=== PATIENT | female | born 1940 | race Caucasian/White ===

== ENCOUNTER → 2020-01-06 10:09 | Outpatient (BNVA) | payer MEDICARE, SELFPAY | PROVIDERS: Family Provider Family Medicine; PCP Physician Assistant; Referring Provider Physician Assistant; Visit Provider Podiatrist Foot & Ankle Surgery | DX: M79.672 Pain in left foot (principal); M21.272 Flexion deformity, left ankle and toes; M21.612 Bunion of left foot; Z46.89 Encounter for fitting and adjustment of other specified devices | CPT/HCPCS: 73620; 73630; L3100 ==

== ENCOUNTER 2020-01-06 13:36 | Outpatient (CLI) | payer MEDICARE, SELFPAY | END 2020-01-06 13:37 | disposition home or self-care (01) | LOC: SPT 13:39 | PROVIDERS: Family Provider Family Medicine; PCP Physician Assistant; Visit Provider Podiatrist Foot & Ankle Surgery | DX: Z46.89 Encounter for fitting and adjustment of other specified devices (principal); M79.672 Pain in left foot | CPT/HCPCS: L3100 ==

== ENCOUNTER 2020-03-06 01:22 | Emergency (ER) | payer MEDICARE, SELFPAY ==
[2020-03-06 01:27] VITALS: BP 130/64; RESP 20; TEMP 36.8; O2SAT 95; BMI 18.9
--- NOTE | 2020-03-06 01:42 | ED_ITS ---
HPI - SOB/Dyspnea General: Chief Complaint: Shortness of Breath/Dyspnea Stated Complaint: resp distress Time Seen by Provider: 03/06/20 01:37 History of Present Illness: HPI Narrative: Patient arrived via ambulance with a complaint of shortness of breath that was relieved with application of oxygen at 3 L at home via the ambulance. Patient had last couple 3 days she has been more short of breath been intermittent been using her inhaler. She ran out of her Spiriva did not have that today. And her shortness of breath has been worse today. She denies any chest pain fever chills or productive cough she feels fine presently on oxygen her sats at home when ambulance arrived was 88% on room air patient is a smoker and continues to smoke MD elicited complaint: shortness of breath and cough Pertinent past history: COPD Timing: improved Severity: mild Exacerbating factors: exertion Relieving factors: oxygen Known history of: COPD Associated symptoms: Reports cough; Deny abdominal pain, chest pain, extremity pain, fever(s), nausea or vomiting Treatment prior to arrival: oxygen (Via the ambulance) Review of Systems Const: Denies: fever, chills or body aches Eyes: Denies: change in vision or blurry vision ENMT: Denies: throat pain or nasal congestion Card: Denies: chest pain or shortness of breath on exertion Resp: Reports: shortness of breath and non-productive cough; Denies: productive cough GI: Denies: abdominal pain, nausea or vomiting Musc: Denies: extremity pain Skin/Breast: Denies: rash Neuro: Denies: headache Psych: Denies: anxiety or depression Papi/Lymph: Denies: easy bruising [facility] ED PFSH: Medical History (Updated 03/06/20 @ 02:49 by RAINE Terrell) CAD (coronary artery disease) History of heart attack PVD (peripheral vascular disease) Surgical History (Updated 02/20/20 @ 18:05 by Mateo Montes MD) Hx of heart artery stent Social History Smoking and tobacco status: current every day smoker cigarettes Packs smoked per day: 1 Alcohol intake: never Current occupational status: retired Physical Exam Const: COMMON NORMALS: no apparent distress, average body habitus and oriented x3 HENMT: COMMON NORMALS: normocephalic HEAD & SCALP: normal to inspection and normocephalic FACE & SINUS: normal facial exam Eye: COMMON NORMALS: conjunctivae normal GENERAL EYE: normal appearance of both eyes CONJUNCTIVA: Yes conjunctivae normal Neck/C-Spine: COMMON NORMALS: no JVD Chest: COMMONS NORMALS: inspection of chest normal Resp: COMMON NORMALS: normal respiratory effort and clear to auscultation bilaterally AUSCULTATION: clear to auscultation bilaterally and diminished lung sounds (Throughout) Cardio: COMMON NORMALS: no JVD, regular rate and regular rhythm RATE: reg ular rate RHYTHM: regular rhythm GI: COMMON NORMALS: normal to inspection, nondistended, normoactive bowel sounds Extremity: COMMON NORMALS: normal to inspection and full ROM Neuro: COMMON NORMALS: oriented x3 Course Vital Signs: Vital signs: Vital Signs Temperature 98.3 F 03/06/20 01:27 Respiratory Rate 20 H 03/06/20 01:27 Blood Pressure 130/64 03/06/20 01:27 Pulse Oximetry 95 03/06/20 01:27 MDM - SOB/Dyspnea MDM Narrative: Medical decision making narrative: EKG reviewed with Dr. Agusto Huff Discussed x-ray appearance with Dr. Huff also and plan of care. Lab Data: Labs: Lab Results 03/06/20 03/06/20 Range/Units 01:39 01:39 WBC 9.9 (4.0-10.0) 10^3/ uL RBC 5.05 (4.1-5.3) 10^6/u L Hgb 15.2 (11.5-15.3) g/dL Hct 47.7 H (37.0-47.0) % MCV 94.5 (81-99) fL MCH 30.1 (28.0-34.0) pg MCHC 31.9 (30.0-36.0) g/dL RDW 13.7 (12.1-15.1) % Plt Count 202 (130-400) 10^3/c mm MPV 11.4 H (7.4-10.4) fL Neut % (Auto) 63.7 % Lymph % (Auto) 28.9 % [place] % (Auto) 6.8 % Eos % (Auto) 0.0 % Baso % (Auto) 0.4 % Neut # (Auto) 6.3 (1.8-7.7) 10^3/u L Lymph # (Auto) 2.9 (0.8-4.8) 10^3/u L [place] # (Auto) 0.7 (0.2-0.9) 10^3/u L Eos # (Auto) 0.0 (0.0-0.8) 10^3/u L Baso # (Auto) 0.0 (0.0-0.1) 10^3/u L Nucleated RBC % (a uto) 0 % Nucleated RBCs # 0.0 /100WBC Sodium 141 (136-145) mmol/L Potassium 3.8 (3.5-5.1) mmol/L Chloride 101 (98-107) mmol/L Carbon Dioxide 28 (22-29) mmol/L Anion Gap 15.8 (5-19) BUN 15 (8-23) mg/dL Creatinine 0.7 (0.5-0.9) mg/dL Glucose 165 H (65-115) mg/dL Calculated Osmolal ity 292 (285-295) mOsm/k g Calcium 10.3 (8.5-10.5) mg/dL Total Bilirubin 0.5 (0.15-1.2) mg/dL AST 21 (0-32) U/L ALT 14 (0-33) U/L Alkaline Phosphata se 135 H (35-105) IU/L Total Protein 7.4 (6.6-8.7) g/dL Albumin 4.6 (3.5-5.2) g/dL Globulin 2.8 (1.3-4.6) g/dL Discharge Plan Discharge Patient Disposition: Home, Self-Care Clinical Impression: Acute exacerbation of chronic obstructive airways disease Condition: Stable Prescriptions: New Medrol (Don) 4 mg tablets,dose pack See Rx Instructions .ROUTE .COMPLEX Qty: 21 RF: 0 No Action meclizine 25 mg tablet 25 mg PO DAILY RF: 0 venlafaxine 150 mg capsule,extended release 24hr 150 mg PO DAILY RF: 0 cilostazol 100 mg tablet 50 mg PO BID 90 Days Qty: 90 RF: 3 lisinopril 10 mg tablet 10 mg PO DAILY 90 Days Qty: 90 RF: 3 nitroglycerin [Nitrostat] 0.4 mg tablet, sublingual 0.4 mg SUBLINGUAL Q5M PRN (Reason: chest pain) 30 Days Qty: 25 RF: 6 simvastatin 20 mg tablet 20 mg PO DAILY 90 Days Qty: 90 RF: 3 aspirin [Adult Low Dose Aspirin] 81 mg tablet,delayed release (DR/EC) 81 mg PO DAILY 90 Days Qty: 90 RF: 3 Discharge Orders: Discharge Order (Routine); Ordered 03/06/20 Ordered By: Wicho Hauser Referrals: Karen Meza PA [Primary Care Provider] - Discharge Diet: Usual diet Discharge Activity: Resume usual activity Patient Instructions: Chronic Obstructive Pulmonary Disease (ED) Activity Restrictions/Additional Instructions: Follow-up with medical provider as directed. Take medications as prescribed. Return to the ER or your medical provider if condition worsens. Please read and understand discharge instructions. If any questions ask please. Coding Level of Care Code ED [employer] Fwd Exam Comprehensive
--- NOTE | 2020-03-06 01:42 | XR_ITS ---
WS: [id number] XR chest 1V portable [id number] REASON FOR EXAM: sob FINDINGS: Reticular pattern throughout both lung roberts is noted. The heart is borderline enlarged with arteriosclerotic changes. Lung roberts are mildly hyper aerated with associated emphysema. Arteriosclerotic changes are again seen in the arch of the aorta. The hilum and apices are normal. XR/XR chest 1V portable [id number] IMPRESSION: Chronic interstitial disease bilaterally with some degree of chronic obstructiv e pulmonary disease. Arteriosclerotic changes of the arch of the aorta.
--- NOTE | 2020-03-06 01:53 | ECG_ITS ---
Measurements Intervals [place] Rate: 83 P: 69 ID: [id number] QRS: -17 QRSD: 158 T: 162 QT: 437 QTc: 516 SINUS RHYTHM POSSIBLE LEFT ATRIAL ENLARGEMENT [-0.1mV P WAVE IN V1/V2] LEFT BUNDLE BRANCH BLOCK [120+ ms QRS DURATION, 80+ ms Q/S IN V1/V2, 85+ ms R IN I/aVL/V5/V6] Compared to ECG 09/02/2018 12:45:11 No significant changes Electronically Signed On 03-06-2020 20:04:23 CDT by Sanjeev White M.D. [email or web address]
[2020-03-06 03:31] VITALS: BP 129/53; PULSE 85; RESP 18; O2SAT 95
== END 2020-03-06 03:37 | disposition home or self-care (01) ==
PROVIDERS: Emergency Provider Nurse Practitioner Family; PCP Physician Assistant
DX: J44.1 Chronic obstructive pulmonary disease with (acute) exacerbation (principal); Z79.82 Long term (current) use of aspirin; I25.10 Atherosclerotic heart disease of native coronary artery without angina pectoris; I73.9 Peripheral vascular disease, unspecified; F17.210 Nicotine dependence, cigarettes, uncomplicated
CPT/HCPCS: 12345; 71045; 85025; 93005; 96374; 96375; 99282; 99283; J2930

== ENCOUNTER 2020-03-29 13:01 | Outpatient (CLI) | payer MEDICARE, SELFPAY ==
--- NOTE | 2020-03-29 13:09 | CT_ITS ---
WS: [id number] CT LUNG CANCER SCREENING DLP: 78.13 mGy.cm DIvol: 2.27 mGy CLINICAL INFORMATION SCREENING VISIT: Baseline COMPARISON: None available. FINDINGS Diagnostic quality: Satisfactory Comments: None. Lung Nodules: 4 mm irregular nodule periphery RIGHT middle lobe, image 242 of series 3. Lungs: Severe hyperexpansion and emphysema. Centrilobular emphysema with numerous cystic areas, great est in the upper lung roberts. Heart: Moderately enlarged heart chambers. No pericardial effusion. There is heavy calcification thro ughout the pala coronary arteries. Other findings: Extensive atherosclerosis aorta. Pulmonary artery size is equal to the aorta. No defi nite adenopathy is identified. There are small mediastinal and hilar lymph nodes. Enlarged lymph node s cannot be detected without IV contrast. No adrenal mass. Splenic granulomata. Increase in thoracic kyphosis. CT/CT lung screening [id number] IMPRESSION: LUNG-RADS: 2S-Benign Appearance or Behavior with Significant Findings FOLLOW UP: 12 Month: Continue annual screening with LDCT 1. Severe centrilobular emphysema. 2. Severe atherosclerosis pala coronary arteries. Follow-up with cardiology should be considered.
== END 2020-03-29 13:02 | disposition home or self-care (01) ==
LOC: RAD 13:06
PROVIDERS: PCP Physician Assistant; Visit Provider Physician Assistant
DX: Z12.2 Encounter for screening for malignant neoplasm of respiratory organs (principal); F17.210 Nicotine dependence, cigarettes, uncomplicated; J43.9 Emphysema, unspecified; I25.10 Atherosclerotic heart disease of native coronary artery without angina pectoris
CPT/HCPCS: G0297

== ENCOUNTER 2020-03-30 05:28 | Inpatient (IN) | payer MEDICARE, SELFPAY ==
[2020-03-30] VITALS (14 sets, daily range): BP systolic 103–118; BP diastolic 8–77; PULSE 72–86; RESP 15–22; TEMP 36.6–37.1; O2SAT 92–98; BMI 18.9
--- NOTE | 2020-03-30 05:31 | XR_ITS ---
WS: [id number] XR chest 1V portable [id number] REASON FOR EXAM: Dyspnea FINDINGS: Severe reticular pattern throughout both lung roberts are noted. The lung roberts are adequat patria aerated. In the right lower lung there is evidence of interstitial infiltrate with air bronchograms this this is occurred since previous exam. There is arteriosclerotic changes in the arch of the aorta. The hilum and apices are normal. XR/XR chest 1V portable [id number] IMPRESSION: Diffuse interstitial disease throughout both lung roberts A interstitial pneumonia in the right lung base.
--- NOTE | 2020-03-30 05:33 | W.ED.SOB ---
Documented by User: Edilma Junior 03/30/20 05:40 HPI - SOB/Dyspnea General: Chief Complaint: Shortness of Breath/Dyspnea Stated Complaint: SOB Time Seen by Provider: 03/30/20 05:31 History of Present Illness: HPI Narrative: Germaine is a 79-year-old female who comes in by EMS with respiratory distress. EMS reports the patient picked up was hypoxic and had a heart rate in the 180s. She was given Cardizem 20 mg IV and a DuoNeb. Respiratory distress improved and her heart rate came down to the 120s to 130s. Patient is denying any chest pain but still feels short of breath. Patient states she is had similar symptoms in the past. Review of Systems General: Reports: ROS unobtainable due to medical condition (Respiratory Distress) [facility] PFSH: Medical History CAD (coronary artery disease) COPD (chronic obstructive pulmonary disease) History of heart attack Hyperlipemia Left bundle branch block PVD (peripheral vascular disease) Type 2 diabetes mellitus Surgical History Hx of cardiac cath 2001: Stent placement to RCA July 2012: Stent placement to LAD with noted 60% proximal LCx lesion Hx of heart artery stent Hx of hysterectomy S/P cataract surgery S/P knee surgery S/P trigger finger release Family History Denies family history of Diabetes CAD (coronary artery disease) Clotting disorder Dementia Hyperlipidemia Psychiatric illness Chronic kidney disease (CKD) Suicide Anesthesia complication Bleeding disorder Family history of premature coronary artery disease Lung disease Cancer Hypertension Stroke Social History Smoking and tobacco status: current every day smoker cigarettes Packs smoked per day: 1 Alcohol intake: never Substance/Drug Use: never Current occupational status: retired Physical Exam Const: COMMON NORMALS: patient oriented x3 GENERAL APPEARANCE: cooperative, well kempt, well developed, in distress and frail appearing NUTRITIONAL APPEARANCE: cachectic HENMT: COMMON NORMALS: normocephalic, atraumatic, hearing grossly normal bilaterally, external ears normal, EAC's normal, Normal external nose present and moist oral mucous membranes HEAD & SCALP: normocephalic and atraumatic NOSE: Normal external nose present and Normal nares present EXTERNAL EAR: Yes external ears normal EXTERNAL AUDITORY CANAL: EAC's normal MOUTH: Normal oral and palatal mucosa present, lip normal and tongue normal Eye: COMMON NORMALS: Equal, round and reactive pupils present, EOMs intact bilaterally, conjunctivae normal and no scleral icterus GENERAL EYE: appearance normal, both eyes and all related structures ALIGNMENT: Yes alignment normal PERIORBITAL: periorbital findings normal EYELID: eyelids normal CONJUNCTIVA: Yes conjunctivae normal SCLERA: sclerae normal PUPIL: Yes Equal, round and reactive pupils present Neck/C-Spine: COMMON NORMALS: full ROM, no lymphadenopathy, supple, no meningeal signs and no JVD GENERAL: Yes normal visual inspection and Yes trachea midline Chest: COMMONS NORMALS: normal inspection of the chest and normal palpation of entire chest wall Resp: COMMON NORMALS: No retractions EFFORT & INSPECTION: Yes able to speak in complete sentences, Yes symmetric chest movement, Yes respiratory distress and Yes uses accessory muscles AUSCULTATION: no crackles, rales, rhonchi and wheezes Cardio: COMMON NORMALS: no JVD, S1 normal heart sound present, S2 normal heart sound present, No gallops present (Cardio), No clicks present (Cardio), No murmurs present (Cardio) and No rub (Cardio) RATE: tachycardic RHYTHM: abnormal rhythm irregularly irregular HEART SOUNDS: S1 normal heart sound present and S2 normal heart sound present GI: COMMON NORMALS: Soft to palpation and No hepatosplenomegaly present PALPATION: Yes Soft to palpation, No Tenderness to palpation present (GI), No Guarding due to palpation present (GI), No Rigid due to palpation, Yes No hepatosplenomegaly present, No Hernia present, No Palpable mass present and No Pulsatile mass present : COMMON NORMALS: Yes no CVA tenderness BLADDER/KIDNEY EXAM: Yes no CVA tenderness EXTERNAL FEMALE EXAM: No Hernia present Back/Pelvis: COMMON NORMALS: no CVA tenderness, thoracic and lumbar spine normal to inspection, no thoracic nor lumbar tenderness and thoraco-lumbar ROM normal Extremity: COMMON NORMALS: normal to inspection, full ROM, capillary refill normal, no joint enlargement, no clubbing, cyanosis or edema and no calf tenderness Neuro: COMMON NORMALS: patient oriented x3, CN's II-XII intact bilaterally, moves all extremities, no focal motor deficits and no sensory deficits noted MENINGEAL SIGNS: Yes no meningeal signs SPEECH: speech normal Psych: APPEARANCE: Yes well kempt Skin: COMMON NORMALS: no rashes or lesions noted, turgor normal, no jaundice, no petechiae and no mottling GENERAL SKIN EXAM: no rashes or lesions noted and turgor normal Course Vital Signs: Vital signs: Vital Signs Temperature 97.8 F 03/30/20 05:29 Pulse Rate 83 03/30/20 10:36 Respiratory Rate 18 03/30/20 10:36 Blood Pressure 114/56 03/30/20 10:36 Pulse Oximetry 97 03/30/20 10:36 MDM - SOB/Dyspnea Lab Data: Labs: Lab Results 03/30/20 03/30/20 03/30/20 Range/Units 05:40 05:40 05:40 WBC 8.4 (4.0-10.0) 10^3/ uL RBC 4.44 (4.1-5.3) 10^6/u L Hgb 13.6 (11.5-15.3) g/dL Hct 42.9 (37.0-47.0) % MCV 96.6 (81-99) fL MCH 30.6 (28.0-34.0) pg MCHC 31.7 (30.0-36.0) g/dL RDW 13.5 (12.1-15.1) % Plt Count 171 (130-400) 10^3/c mm MPV 11.4 H (7.4-10.4) fL Neut % (Auto) 44.1 % Lymph % (Auto) 48.7 % [place] % (Auto) 6.6 % Eos % (Auto) 0.0 % Baso % (Auto) 0.5 % Neut # (Auto) 3.7 (1.8-7.7) 10^3/u L Lymph # (Auto) 4.1 (0.8-4.8) 10^3/u L [place] # (Auto) 0.6 (0.2-0.9) 10^3/u L Eos # (Auto) 0.0 (0.0-0.8) 10^3/u L Baso # (Auto) 0.0 (0.0-0.1) 10^3/u L Nucleated RBC % (a uto) 0 % Nucleated RBCs # 0.0 /100WBC PT 12.60 (10.5-13.3) SECO NDS INR 0.92 (0.8-1.2) Specimen Type Sample Site ABG pH (7.35-7.45) ABG pCO2 (35-45) mmHg ABG pO2 (80.0-100.0) mmH g ABG HCO3 (22-26) mmol/L ABG Base Excess (-2.0-2.0) mmol/ L Edmundo Test Hematocrit (37-47) % O2 Delivery Device O2 Liters/Min % Red Lead Burner ID Sodium 143 (136-145) mmol/L Potassium 3.9 (3.5-5.1) mmol/L Chloride 105 (98-107) mmol/L Carbon Dioxide 22 (22-29) mmol/L Anion Gap 19.9 H (5-19) BUN 13 (8-23) mg/dL Creatinine 0.8 (0.5-0.9) mg/dL Glucose 307 H (65-115) mg/dL Calculated Osmolal ity 304 H (285-295) mOsm/k g Calcium 9.1 (8.5-10.5) mg/dL Magnesium 2.1 (1.7-2.3) mg/dL Total Bilirubin 0.5 (0.15-1.2) mg/dL AST 105 H (0-32) U/L ALT 79 H (0-33) U/L Alkaline Phosphata se 146 H (35-105) IU/L Troponin T Baselin e (0-10) ng/mL Troponin T 120 Min [place] (0-10) ng/mL Delta Troponin T (0-10) ABS# NT-Pro-B Natriuret Pep 5804 H (0-450) pg/mL Total Protein 6.2 L (6.6-8.7) g/dL Albumin 4.0 (3.5-5.2) g/dL Globulin 2.2 (1.3-4.6) g/dL Urine Color (Yellow) Urine Appearance (CLEAR) Urine pH (5-7) Ur Specific Gravit y (1.005-1.030) Urine Protein (Negative) Urine Glucose (UA) (Normal) Urine Ketones (Negative) Urine Blood (Negative) Urine Nitrate (Negative) Urine Bilirubin (NEGATIVE) Urine Urobilinogen (Negative) mg/dL Ur Leukocyte Tammi ase (Negative) Urine RBC (0-2) /hpf Urine WBC (0-5) /hpf Ur Squamous Epith Cells (0-5) Urine Bacteria (NONE) Urine Mucus 03/30/20 03/30/20 03/30/20 Range/Units 05:40 06:00 07:08 WBC (4.0-10.0) 10^3/ uL RBC (4.1-5.3) 10^6/u L Hgb (11.5-15.3) g/dL Hct (37.0-47.0) % MCV (81-99) fL MCH (28.0-34.0) pg MCHC (30.0-36.0) g/dL RDW (12.1-15.1) % Plt Count (130-400) 10^3/c mm MPV (7.4-10.4) fL Neut % (Auto) % Lymph % (Auto) % [place] % (Auto) % Eos % (Auto) % Baso % (Auto) % Neut # (Auto) (1.8-7.7) 10^3/u L Lymph # (Auto) (0.8-4.8) 10^3/u L [place] # (Auto) (0.2-0.9) 10^3/u L Eos # (Auto) (0.0-0.8) 10^3/u L Baso # (Auto) (0.0-0.1) 10^3/u L Nucleated RBC % (a uto) % Nucleated RBCs # /100WBC PT (10.5-13.3) SECO NDS INR (0.8-1.2) Specimen Type Arterial Sample Site Radial, left ABG pH 7.34 L (7.35-7.45) ABG pCO2 40.9 (35-45) mmHg ABG pO2 78.4 L (80.0-100.0) mmH g ABG HCO3 21.8 L (22-26) mmol/L ABG Base Excess -3.9 L (-2.0-2.0) mmol/ L Edmundo Test Pos Hematocrit 41.0 (37-47) % O2 Delivery Device Nrb O2 Liters/Min 15.0 % Red Lead Burner ID [id number] Sodium (136-145) mmol/L Potassium (3.5-5.1) mmol/L Chloride (98-107) mmol/L Carbon Dioxide (22-29) mmol/L Anion Gap (5-19) BUN (8-23) mg/dL Creatinine (0.5-0.9) mg/dL Glucose (65-115) mg/dL Calculated Osmolal ity (285-295) mOsm/k g Calcium (8.5-10.5) mg/dL Magnesium (1.7-2.3) mg/dL Total Bilirubin (0.15-1.2) mg/dL AST (0-32) U/L ALT (0-33) U/L Alkaline Phosphata se (35-105) IU/L Troponin T Baselin e 28 H (0-10) ng/mL Troponin T 120 Min [place] (0-10) ng/mL Delta Troponin T (0-10) ABS# NT-Pro-B Natriuret Pep (0-450) pg/mL Total Protein (6.6-8.7) g/dL Albumin (3.5-5.2) g/dL Globulin (1.3-4.6) g/dL Urine Color Straw (Yellow) Urine Appearance Cloudy (CLEAR) Urine pH 6 (5-7) Ur Specific Gravit y 1.010 (1.005-1.030) Urine Protein Neg (Negative) Urine Glucose (UA) 2+ (Normal) Urine Ketones Negative (Negative) Urine Blood Neg (Negative) Urine Nitrate Positive H (Negative) Urine Bilirubin Neg (NEGATIVE) Urine Urobilinogen Norm (Negative) mg/dL Ur Leukocyte Tammi ase Negative (Negative) Urine RBC 0-4 H (0-2) /hpf Urine WBC 5-10 H (0-5) /hpf Ur Squamous Epith Cells 0-4 H (0-5) Urine Bacteria 3+ H (NONE) Urine Mucus Trace 03/30/20 Range/Units 08:05 WBC (4.0-10.0) 10^3/ uL RBC (4.1-5.3) 10^6/u L Hgb (11.5-15.3) g/dL Hct (37.0-47.0) % MCV (81-99) fL MCH (28.0-34.0) pg MCHC (30.0-36.0) g/dL RDW (12.1-15.1) % Plt Count (130-400) 10^3/c mm MPV (7.4-10.4) fL Neut % (Auto) % Lymph % (Auto) % [place] % (Auto) % Eos % (Auto) % Baso % (Auto) % Neut # (Auto) (1.8-7.7) 10^3/u L Lymph # (Auto) (0.8-4.8) 10^3/u L [place] # (Auto) (0.2-0.9) 10^3/u L Eos # (Auto) (0.0-0.8) 10^3/u L Baso # (Auto) (0.0-0.1) 10^3/u L Nucleated RBC % (a uto) % Nucleated RBCs # /100WBC PT (10.5-13.3) SECO NDS INR (0.8-1.2) Specimen Type Sample Site ABG pH (7.35-7.45) ABG pCO2 (35-45) mmHg ABG pO2 (80.0-100.0) mmH g ABG HCO3 (22-26) mmol/L ABG Base Excess (-2.0-2.0) mmol/ L Edmundo Test Hematocrit (37-47) % O2 Delivery Device O2 Liters/Min % Red Lead Burner ID Sodium (136-145) mmol/L Potassium (3.5-5.1) mmol/L Chloride (98-107) mmol/L Carbon Dioxide (22-29) mmol/L Anion Gap (5-19) BUN (8-23) mg/dL Creatinine (0.5-0.9) mg/dL Glucose (65-115) mg/dL Calculated Osmolal ity (285-295) mOsm/k g Calcium (8.5-10.5) mg/dL Magnesium (1.7-2.3) mg/dL Total Bilirubin (0.15-1.2) mg/dL AST (0-32) U/L ALT (0-33) U/L Alkaline Phosphata se (35-105) IU/L Troponin T Baselin e (0-10) ng/mL Troponin T 120 Min [place] 54.87 H (0-10) ng/mL Delta Troponin T 26.87 H* (0-10) ABS# NT-Pro-B Natriuret Pep (0-450) pg/mL Total Protein (6.6-8.7) g/dL Albumin (3.5-5.2) g/dL Globulin (1.3-4.6) g/dL Urine Color (Yellow) Urine Appearance (CLEAR) Urine pH (5-7) Ur Specific Gravit y (1.005-1.030) Urine Protein (Negative) Urine Glucose (UA) (Normal) Urine Ketones (Negative) Urine Blood (Negative) Urine Nitrate (Negative) Urine Bilirubin (NEGATIVE) Urine Urobilinogen (Negative) mg/dL Ur Leukocyte Tammi ase (Negative) Urine RBC (0-2) /hpf Urine WBC (0-5) /hpf Ur Squamous Epith Cells (0-5) Urine Bacteria (NONE) Urine Mucus Discharge Plan Discharge Patient Disposition: Admitted As Inpatient Admit Provider: [place] Strong Clinical Impression: Non-ST elevation CO (NSTEMI), Acute exacerbation of chronic obstructive airways disease, Congestive heart failure, CAD (coronary artery disease), Atrial fibrillation Condition: Stable Interventions: ED Discharge Assessment Last Done: 03/30/20 10:36 ED Charges Last Done: 03/30/20 10:36 Discharge Date/Time: 03/30/20 10:37 Sign Out Sign Out Data: Patient Sign Out occurred on 03/30/20 at 06:17. Patient's care was discussed, and care was transferred from to Manoj Rand DO. Coding Level of Care Code ED Relief Pilot for Chg Fwd Exam Comprehensive Documented by User: Manoj Rand DO 03/30/20 11:23 HPI - SOB/Dyspnea General: Chief Complaint: Shortness of Breath/Dyspnea Stated Complaint: SOB Time Seen by Provider: 03/30/20 05:31 History of Present Illness: Associated symptoms: Reports palpitations; Deny abdominal pain, chest pain, fever(s), nausea, orthopnea or vomiting Review of Systems Const: Denies: fever(s), chills, body aches, change in appetite, fatigue or malaise ENMT: Denies: throat pain, ear or mastoid pain, nasal discharge or nasal congestion Card: Reports: palpitations, irregular heart rhythm and dyspnea on exertion; Denies: chest pain, edema or orthopnea Resp: Reports: dyspnea and non-productive cough; Denies: productive cough GI: Denies: abdominal pain, nausea, vomiting, hematemesis, coffee ground emesis, diarrhea, constipation, bloating, hematochezia or melena : Denies: flank pain, difficulty voiding, dysuria, urinary frequency or urinary urgency Skin/Breast: Denies: rash or pruritus PFSH ED PFSH: Medical History CAD (coronary artery disease) COPD (chronic obstructive pulmonary disease) History of heart attack Hyperlipemia Left bundle branch block PVD (peripheral vascular disease) Type 2 diabetes mellitus Surgical History Hx of cardiac cath 2001: Stent placement to RCA July 2012: Stent placement to LAD with noted 60% proximal LCx lesion Hx of heart artery stent Hx of hysterectomy S/P cataract surgery S/P knee surgery S/P trigger finger release Family History Denies family history of Diabetes CAD (coronary artery disease) Clotting disorder Dementia Hyperlipidemia Psychiatric illness Chronic kidney disease (CKD) Suicide Anesthesia complication Bleeding disorder Family history of premature coronary artery disease Lung disease Cancer Hypertension Stroke Social History Smoking and tobacco status: current every day smoker cigarettes Packs smoked per day: 1 Alcohol intake: never Substance/Drug Use: never Current occupational status: retired Physical Exam Const: COMMON NORMALS: no acute distress GENERAL APPEARANCE: cooperative and comfortable ORIENTATION/CONSCIOUSNESS: Yes awake, Yes oriented to person, Yes oriented to place and Yes oriented to time Eye: COMMON NORMALS: Equal, round and reactive pupils present, EOMs intact bilaterally, conjunctivae normal and no scleral icterus CONJUNCTIVA: Yes conjunctivae normal PUPIL: Yes Equal, round and reactive pupils present Neck/C-Spine: COMMON NORMALS: full ROM, no lymphadenopathy, supple and no JVD Lymph: LYMPHATIC: no lymphadenopathy noted and no lymphedema noted Resp: COMMON NORMALS: normal respiratory effort, No retractions, No use of accessory muscles and clear to auscultation bilaterally AUSCULTATION: clear to auscultation bilaterally Cardio: COMMON NORMALS: no JVD, regular rate, regular rhythm and No murmurs present (Cardio) RATE: regular rate RHYTHM: regular rhythm GI: COMMON NORMALS: Soft to palpation and No hepatosplenomegaly present AUSCULTATION: Yes normoactive bowel sounds PALPATION: Yes Soft to palpation, No Tenderness to palpation present (GI), No Guarding due to palpation present (GI) and Yes No hepatosplenomegaly present Extremity: COMMON NORMALS: normal to inspection, capillary refill normal, no clubbing, cyanosis or edema, no calf tenderness and no pedal edema Neuro: SENSORIUM/ORIENTATION: Yes oriented to person, Yes oriented to place and Yes oriented to time Skin: COMMON NORMALS: no rashes or lesions noted GENERAL SKIN EXAM: no rashes or lesions noted Course Vital Signs: Vital signs: Vital Signs Temperature 97.8 F 03/30/20 05:29 Pulse Rate 83 03/30/20 10:36 Respiratory Rate 18 03/30/20 10:36 Blood Pressure 114/56 03/30/20 10:36 Pulse Oximetry 97 03/30/20 10:36 MDM - SOB/Dyspnea MDM Narrative: Medical decision making narrative: Care was assumed from Dr. Siddiqui at change of shift. Her chest x-ray looks she has more diffuse fluid overload than previous ones. I do not see an echo in her chart. Her baseline troponin is slightly elevated I suspect that is from her COPD. Her only complaint was her shortness of breath she never really had any chest pain she may have had some A. fib before she came in. Sherin give her 20 of Lasix she would like to go home and is relatively asymptomatic resting in bed at this time. Anticipate decreasing her lisinopril to 2.5 daily adding Lasix continuing her other medications, pending a second troponin. They should also benefit from inhaled LABA/corticosteroid. Patient was asymptomatic and was able to maintain her sats on 2 to 3 L by nasal cannula in the mid to low 90s. However we are waiting on a second troponin and it came back with a significant delta of 28. She has known coronary disease and in 2011 had an LAD stent had some moderate disease in her left circumflex. Given the delta and the episode this morning I think she should be admitted discussed Dr. Strong she agrees she was given aspirin Lovenox and nitro. I did compare chest x-ray is significant increase of interstitial what looks like fluid we given her some Lasix for that she is not really had a significant improvement in her breathing after the Lasix but has had some urinary output Dr. Strong will consult cardiology. Lab Data: Labs: Lab Results 03/30/20 03/30/20 03/30/20 Range/Units 05:40 05:40 05:40 WBC 8.4 (4.0-10.0) 10^3/ uL RBC 4.44 (4.1-5.3) 10^6/u L Hgb 13.6 (11.5-15.3) g/dL Hct 42.9 (37.0-47.0) % MCV 96.6 (81-99) fL MCH 30.6 (28.0-34.0) pg MCHC 31.7 (30.0-36.0) g/dL RDW 13.5 (12.1-15.1) % Plt Count 171 (130-400) 10^3/c mm MPV 11.4 H (7.4-10.4) fL Neut % (Auto) 44.1 % Lymph % (Auto) 48.7 % [place] % (Auto) 6.6 % Eos % (Auto) 0.0 % Baso % (Auto) 0.5 % Neut # (Auto) 3.7 (1.8-7.7) 10^3/u L Lymph # (Auto) 4.1 (0.8-4.8) 10^3/u L [place] # (Auto) 0.6 (0.2-0.9) 10^3/u L Eos # (Auto) 0.0 (0.0-0.8) 10^3/u L Baso # (Auto) 0.0 (0.0-0.1) 10^3/u L Nucleated RBC % (a uto) 0 % Nucleated RBCs # 0.0 /100WBC PT 12.60 (10.5-13.3) SECO NDS INR 0.92 (0.8-1.2) Specimen Type Sample Site ABG pH (7.35-7.45) ABG pCO2 (35-45) mmHg ABG pO2 (80.0-100.0) mmH g ABG HCO3 (22-26) mmol/L ABG Base Excess (-2.0-2.0) mmol/ L Edmundo Test Hematocrit (37-47) % O2 Delivery Device O2 Liters/Min % Red Lead Burner ID Sodium 143 (136-145) mmol/L Potassium 3.9 (3.5-5.1) mmol/L Chloride 105 (98-107) mmol/L Carbon Dioxide 22 (22-29) mmol/L Anion Gap 19.9 H (5-19) BUN 13 (8-23) mg/dL Creatinine 0.8 (0.5-0.9) mg/dL Glucose 307 H (65-115) mg/dL Calculated Osmolal ity 304 H (285-295) mOsm/k g Calcium 9.1 (8.5-10.5) mg/dL Magnesium 2.1 (1.7-2.3) mg/dL Total Bilirubin 0.5 (0.15-1.2) mg/dL AST 105 H (0-32) U/L ALT 79 H (0-33) U/L Alkaline Phosphata se 146 H (35-105) IU/L Troponin T Baselin e (0-10) ng/mL Troponin T 120 Min [place] (0-10) ng/mL Delta Troponin T (0-10) ABS# NT-Pro-B Natriuret Pep 5804 H (0-450) pg/mL Total Protein 6.2 L (6.6-8.7) g/dL Albumin 4.0 (3.5-5.2) g/dL Globulin 2.2 (1.3-4.6) g/dL Urine Color (Yellow) Urine Appearance (CLEAR) Urine pH (5-7) Ur Specific Gravit y (1.005-1.030) Urine Protein (Negative) Urine Glucose (UA) (Normal) Urine Ketones (Negative) Urine Blood (Negative) Urine Nitrate (Negative) Urine Bilirubin (NEGATIVE) Urine Urobilinogen (Negative) mg/dL Ur Leukocyte Tammi ase (Negative) Urine RBC (0-2) /hpf Urine WBC (0-5) /hpf Ur Squamous Epith Cells (0-5) Urine Bacteria (NONE) Urine Mucus 03/30/20 03/30/20 03/30/20 Range/Units 05:40 06:00 07:08 WBC (4.0-10.0) 10^3/ uL RBC (4.1-5.3) 10^6/u L Hgb (11.5-15.3) g/dL Hct (37.0-47.0) % MCV (81-99) fL MCH (28.0-34.0) pg MCHC (30.0-36.0) g/dL RDW (12.1-15.1) % Plt Count (130-400) 10^3/c mm MPV (7.4-10.4) fL Neut % (Auto) % Lymph % (Auto) % [place] % (Auto) % Eos % (Auto) % Baso % (Auto) % Neut # (Auto) (1.8-7.7) 10^3/u L Lymph # (Auto) (0.8-4.8) 10^3/u L [place] # (Auto) (0.2-0.9) 10^3/u L Eos # (Auto) (0.0-0.8) 10^3/u L Baso # (Auto) (0.0-0.1) 10^3/u L Nucleated RBC % (a uto) % Nucleated RBCs # /100WBC PT (10.5-13.3) SECO NDS INR (0.8-1.2) Specimen Type Arterial Sample Site Radial, left ABG pH 7.34 L (7.35-7.45) ABG pCO2 40.9 (35-45) mmHg ABG pO2 78.4 L (80.0-100.0) mmH g ABG HCO3 21.8 L (22-26) mmol/L ABG Base Excess -3.9 L (-2.0-2.0) mmol/ L Edmundo Test Pos Hematocrit 41.0 (37-47) % O2 Delivery Device Nrb O2 Liters/Min 15.0 % Red Lead Burner ID [id number] Sodium (136-145) mmol/L Potassium (3.5-5.1) mmol/L Chloride (98-107) mmol/L Carbon Dioxide (22-29) mmol/L Anion Gap (5-19) BUN (8-23) mg/dL Creatinine (0.5-0.9) mg/dL Glucose (65-115) mg/dL Calculated Osmolal ity (285-295) mOsm/k g Calcium (8.5-10.5) mg/dL Magnesium (1.7-2.3) mg/dL Total Bilirubin (0.15-1.2) mg/dL AST (0-32) U/L ALT (0-33) U/L Alkaline Phosphata se (35-105) IU/L Troponin T Baselin e 28 H (0-10) ng/mL Troponin T 120 Min [place] (0-10) ng/mL Delta Troponin T (0-10) ABS# NT-Pro-B Natriuret Pep (0-450) pg/mL Total Protein (6.6-8.7) g/dL Albumin (3.5-5.2) g/dL Globulin (1.3-4.6) g/dL Urine Color Straw (Yellow) Urine Appearance Cloudy (CLEAR) Urine pH 6 (5-7) Ur Specific Gravit y 1.010 (1.005-1.030) Urine Protein Neg (Negative) Urine Glucose (UA) 2+ (Normal) Urine Ketones Negative (Negative) Urine Blood Neg (Negative) Urine Nitrate Positive H (Negative) Urine Bilirubin Neg (NEGATIVE) Urine Urobilinogen Norm (Negative) mg/dL Ur Leukocyte Tammi ase Negative (Negative) Urine RBC 0-4 H (0-2) /hpf Urine WBC 5-10 H (0-5) /hpf Ur Squamous Epith Cells 0-4 H (0-5) Urine Bacteria 3+ H (NONE) Urine Mucus Trace 03/30/20 Range/Units 08:05 WBC (4.0-10.0) 10^3/ uL RBC (4.1-5.3) 10^6/u L Hgb (11.5-15.3) g/dL Hct (37.0-47.0) % MCV (81-99) fL MCH (28.0-34.0) pg MCHC (30.0-36.0) g/dL RDW (12.1-15.1) % Plt Count (130-400) 10^3/c mm MPV (7.4-10.4) fL Neut % (Auto) % Lymph % (Auto) % [place] % (Auto) % Eos % (Auto) % Baso % (Auto) % Neut # (Auto) (1.8-7.7) 10^3/u L Lymph # (Auto) (0.8-4.8) 10^3/u L [place] # (Auto) (0.2-0.9) 10^3/u L Eos # (Auto) (0.0-0.8) 10^3/u L Baso # (Auto) (0.0-0.1) 10^3/u L Nucleated RBC % (a uto) % Nucleated RBCs # /100WBC PT (10.5-13.3) SECO NDS INR (0.8-1.2) Specimen Type Sample Site ABG pH (7.35-7.45) ABG pCO2 (35-45) mmHg ABG pO2 (80.0-100.0) mmH g ABG HCO3 (22-26) mmol/L ABG Base Excess (-2.0-2.0) mmol/ L Edmundo Test Hematocrit (37-47) % O2 Delivery Device O2 Liters/Min % Red Lead Burner ID Sodium (136-145) mmol/L Potassium (3.5-5.1) mmol/L Chloride (98-107) mmol/L Carbon Dioxide (22-29) mmol/L Anion Gap (5-19) BUN (8-23) mg/dL Creatinine (0.5-0.9) mg/dL Glucose (65-115) mg/dL Calculated Osmolal ity (285-295) mOsm/k g Calcium (8.5-10.5) mg/dL Magnesium (1.7-2.3) mg/dL Total Bilirubin (0.15-1.2) mg/dL AST (0-32) U/L ALT (0-33) U/L Alkaline Phosphata se (35-105) IU/L Troponin T Baselin e (0-10) ng/mL Troponin T 120 Min [place] 54.87 H (0-10) ng/mL Delta Troponin T 26.87 H* (0-10) ABS# NT-Pro-B Natriuret Pep (0-450) pg/mL Total Protein (6.6-8.7) g/dL Albumin (3.5-5.2) g/dL Globulin (1.3-4.6) g/dL Urine Color (Yellow) Urine Appearance (CLEAR) Urine pH (5-7) Ur Specific Gravit y (1.005-1.030) Urine Protein (Negative) Urine Glucose (UA) (Normal) Urine Ketones (Negative) Urine Blood (Negative) Urine Nitrate (Negative) Urine Bilirubin (NEGATIVE) Urine Urobilinogen (Negative) mg/dL Ur Leukocyte Tammi ase (Negative) Urine RBC (0-2) /hpf Urine WBC (0-5) /hpf Ur Squamous Epith Cells (0-5) Urine Bacteria (NONE) Urine Mucus Discharge Plan Discharge Patient Disposition: Admitted As Inpatient Admit Provider: [place] Strong Clinical Impression: Non-ST elevation CO (NSTEMI), Acute exacerbation of chronic obstructive airways disease, Congestive heart failure, CAD (coronary artery disease), Atrial fibrillation Condition: Stable Interventions: ED Discharge Assessment Last Done: 03/30/20 10:36 ED Charges Last Done: 03/30/20 10:36 Discharge Date/Time: 03/30/20 10:37 Sign Out Sign Out Data: Patient Sign Out occurred on 03/30/20 at 06:17. Patient's care was discussed, and care was transferred from to Manoj Rand DO. Coding Level of Care Code ED Relief Pilot for Dar Fwthomas Exam Comprehensive
[2020-03-30 05:51] LABS: Basophils % 0.5 %; Hematocrit 42.9 % (37.0-47.0); Hemoglobin 13.6 g/dL (11.5-15.3); Lymphocytes # 4.1 10^3/uL (0.8-4.8); Lymphocytes % 48.7 %; Mean Corpuscular HGB Conc 31.7 g/dL (30.0-36.0); Mean Corpuscular Hemoglobin 30.6 pg (28.0-34.0); Mean Corpuscular Volume 96.6 fL (81-99); Mean Platelet Volume 11.4 fL (7.4-10.4); Monocytes # 0.6 10^3/uL (0.2-0.9); Monocytes % 6.6 %; Neutrophils # 3.7 10^3/uL (1.8-7.7); Neutrophils % 44.1 %; Nucleated Red Blood Cells % 0 %; Platelet Count 171 10^3/cmm (130-400); Red Blood Count 4.44 10^6/uL (4.1-5.3); Red Cell Distribution Width 13.5 % (12.1-15.1); White Blood Count 8.4 10^3/uL (4.0-10.0)
[2020-03-30 05:55] LABS: INR 0.92 (0.8-1.2)
[2020-03-30 06:09] LABS: Alanine Aminotransferase 79 U/L (0-33); Alkaline Phosphatase 146 IU/L (35-105); Anion Gap 19.9 (5-19); Blood Urea Nitrogen 13 mg/dL (8-23); Calcium 9.1 mg/dL (8.5-10.5); Carbon Dioxide 22 mmol/L (22-29); Chloride 105 mmol/L (98-107); Globulin 2.2 g/dL (1.3-4.6); Glucose 307 mg/dL (65-115); Magnesium 2.1 mg/dL (1.7-2.3); NT Pro B Type Natriuretic Pept 5804 pg/mL (0-450); Osmolality Calculated 304 mOsm/kg (285-295); Potassium 3.9 mmol/L (3.5-5.1); Sodium 143 mmol/L (136-145); Total Bilirubin 0.5 mg/dL (0.15-1.2); Total Protein 6.2 g/dL (6.6-8.7); Troponin(5th) Baseline 28 ng/mL (0-10)
[2020-03-30 06:11] LABS: ABG PCO2 40.9 mmHg (35-45); ABG PH Result 7.34 (7.35-7.45); Base Excess ABG -3.9 mmol/L (-2.0-2.0); Blood Gas Allen Test Pos; Blood Gas Sample Site Radial, left; Blood Gas Sample Type Arterial; HCO3 ABG 21.8 mmol/L (22-26); Oxygen Device NRB; PO2 ABG 78.4 mmHg (80.0-100.0)
[2020-03-30] MEDS: levalbuterol 1.25 mg/3 mL Neb 2.5 MG INHALATION (06:12)
[2020-03-30 06:17] LABS: Aspartate Amino Transferase 105 U/L (0-32)
[2020-03-30] MEDS: FUROsemide 10 mg/mL SDV 2mL 20 MG IVP (06:39)
--- NOTE | 2020-03-30 07:32 | ECG_ITS ---
Measurements Intervals [place] Rate: 70 P: 47 MD: 166 QRS: -11 QRSD: 158 T: 175 QT: 494 QTc: 536 SINUS RHYTHM POSSIBLE LEFT ATRIAL ENLARGEMENT [-0.1mV P WAVE IN V1/V2] LEFT BUNDLE BRANCH BLOCK [120+ ms QRS DURATION, 80+ ms Q/S IN V1/V2, 85+ ms R IN I/aVL/V5/V6] Compared to ECG 03/06/2020 02:16:10 No significant changes Electronically Signed On 03-30-2020 21:01:46 CDT by Sanjeev White M.D. [id number]
[2020-03-30 07:33] LABS: Glucose Urine UA 2+ (Normal); Protein Urine Neg (Negative); Urine Appearance Cloudy (CLEAR); Urine Color Straw (Yellow); pH Urine 6 (5-7)
[2020-03-30 07:34] LABS: Bilirubin Urine Neg (NEGATIVE); Blood Urine Neg (Negative); Ketones Urine Negative (Negative); Leukocyte Esterase Urine Negative (Negative); Nitrate Urine Positive (Negative); RBC Urine 0-4 /hpf (0-2); Urobilinogen Urine Norm (Negative)
[2020-03-30 07:35] LABS: Add Urine Culture? Yes; Bacteria Urine 3+; Mucus Urine TRACE; Squamous Epithelial Cell Urine 0-4 (0-5)
[2020-03-30 08:31] LABS: Troponin 5 2HR 54.87 ng/mL (0-10)
[2020-03-30 08:37] LABS: Troponin 5 2HR Delta 26.87 ABS# (0-10)
[2020-03-30] MEDS: aspirin 81 mg Chew Tablet 324 MG PO (09:14)
[2020-03-30] MEDS: levofloxacin-dextrose 5 % 750 MG/150 ML PREMIX 100 MG IV (09:15)
[2020-03-30] MEDS: enoxaparin 60 mg/0.6 mL Syringe 50 MG SUBCUT ×2 (09:23→20:56)
[2020-03-30] MEDS: nitroglycerin 1 gm/inch oint Pkt 0.5 INCH TOPICAL (09:24)
--- NOTE | 2020-03-30 10:03 | PC.NURSE ---
This nurse attempted to call CSU nurse to give report. CSU nurse stated they will call back in a little bit to give report
--- NOTE | 2020-03-30 10:34 | USCV_ITS ---
Germaine Perez Age: 79 Gender: F : 1940 Exam Date: 03/30/2020 13:54 Ordering Phys: Albania Strong DO Technologist: Claudia Newby Exam Location: [facility] [place] Indication: NSTEMI, NEW ONSET A FIB BP: 108 / 66 HR: 72 Rhythm: Sinus Technical Quality: Adequate MEASUREMENTS (Male / Female) Normal Values 2D ECHO LV Diastolic Diameter PLAX 5.1 cm 4.2 - 5.9 / 3.9 - 5.3 cm LV Systolic Diameter PLAX 4.4 cm IVS Diastolic Thickness 1.2 cm 0.6 - 1.0 / 0.6 - 0.9 cm IVS Systolic Thickness 1.2 cm LVPW Diastolic Thickness 0.8 cm 0.6 - 1.0 / 0.6 - 0.9 cm LVPW Systolic Thickness 1.1 cm LVOT Diameter 2.0 cm LV Ejection Fraction 2D Teich 30.0 % LV Ejection Fraction MOD 2C 47.8 % LV Ejection Fraction 2C AL 46.3 % LA Diameter 3.3 cm LA Width 3.1 cm LA Height 4.2 cm RA Width 3.1 cm RA Height 3.1 cm M-MODE LV Diastolic Diameter MM 6.3 cm 4.2 - 5.9 / 3.9 - 5.3 cm LV Systolic Diameter MM 5.7 cm LV Ejection Fraction MM Teich 19.9 % IVS Diastolic Thickness MM 0.8 cm 0.6 - 1.0 / 0.6 - 0.9 cm IVS Systolic Thickness MM 0.9 cm LVPW Diastolic Thickness MM 0.9 cm 0.6 - 1.0 / 0.6 - 0.9 cm LVPW Systolic Thickness MM 1.1 cm Aortic Annulus Diameter 2.6 cm LA Ao Ratio MM 1.3 MV E Point Septal Separation 1.6 cm DOPPLER AV Peak Velocity 147.0 cm/s LVOT Peak Velocity 64.0 cm/s AV Area Cont Eq vti 1.4 cm squared AV Area Cont Eq pk 1.4 cm squared MV Peak Velocity 98.0 cm/s MV Area PHT 4.8 cm squared Mitral E to A Ratio 1.0 MV E' Velocity 5.0 cm/s Mitral E to MV E' Ratio 18.2 Mitral E to LV E' Lateral Ratio 17.5 Mitral E to LV E' Septal Ratio 18.9 TR Peak Velocity 42.0 cm/s TR Peak Gradient 0.7 mmHg Right Atrial Pressure 3.0 mmHg Pulmonary Artery Systolic Pressu 3.7 mmHg PV Peak Velocity 106.0 cm/s RV Acceleration Time 0.1 s FINDINGS Left Ventricle Mildly increased left ventricular cavity size. Normal left ventricular wall thickness. Severely decreased left ventricular systolic function. Global left ventricular hypokinesis. Left ventricular ejection fraction is estimated at 30 %. Grade II/IV diastolic dysfunction, moderately elevated filling pressures. Right Ventricle Normal right ventricular size and systolic function. Normal right ventricular systolic pressure. Right Atrium The right atrium is normal in size. Left Atrium The left atrium is normal in size. Mitral Valve Structurally normal mitral valve. Mild mitral valve regurgitation. Aortic Valve Structurally normal aortic valve without significant sclerosis or stenosis. There is no aortic regurgitation. Tricuspid Valve Structurally normal tricuspid valve. Trace tricuspid valve regurgitation. Pulmonic Valve Pulmonic valve not well visualized. Pericardium Normal pericardium without effusion. Aorta Normal ascending aorta dimension. CONCLUSIONS Mildly increased left ventricular cavity size. Normal left ventricular wall thickness. Severely decreased left ventricular systolic function. Global left ventricular hypokinesis. Left ventricular ejection fraction is estimated at 30 %. Grade II/IV diastolic dysfunction, moderately elevated filling pressures. Structurally normal mitral valve. Mild mitral valve regurgitation. There are no prior echocardiogram studies to compare. Dr. José Manuel Babin MD (Electronically Signed) Final Date: 30 March 2020 16:36 S
--- NOTE | 2020-03-30 10:50 | PM.HP ---
Providers/Chief Complaint Admitting Physician: Albania Strong DO Primary Care Provider: Karen Meza Chief Complaint: SOB History of Present Illness Germaine Perez is a 79 year old female the past medical history of coronary artery disease, hypertension, COPD, diabetes and tobacco abuse that presented to the emergency department today for chest pain and pressure along with shortness of breath. Patient stated that this woke her up suddenly from sleep. She stated that she called EMS on their arrival she was in atrial fibrillation with RVR. She reports never having a diagnosis of atrial fibrillation in the past. She stated that she had pressure in the center of her chest along with difficulty breathing when this onset. She reported she was performing her normal activities yesterday with no significant shortness of breath, no increased cough or sputum production, no fevers or chills. She reported that she is on 2 L of oxygen by nasal cannula at baseline. She reports following with Dr. Montes. She has a history of stenting x2 once in 2001 and again in 2011. Patient reports that she does continue to smoke, just slightly less than a pack per day. Patient denies any increasing cough or sputum production, denies any exposure to anyone under investigation are positive for CO VID-19. Patient was seen and evaluated in the emergency department noted to have atrial fibrillation with RVR given Cardizem and converted to sinus rhythm. She did have a positive delta troponin of 26 and therefore was admitted for further evaluation and treatment. She was also noted to have mild fluid overload and given IV Lasix x1 while in the ED. Review of Systems Const: Denies: fever(s) or chills Eyes: Denies: change in vision ENMT: Denies: nasal congestion Card: Reports: chest pain; Denies: palpitations or edema Resp: Reports: dyspnea; Denies: productive cough or hemoptysis GI: Denies: abdominal pain, nausea, vomiting, diarrhea, constipation, hematochezia or melena : Denies: dysuria or hematuria Musc: Denies: extremity pain or muscle cramps Skin/Breast: Denies: rash or new lesions Neuro: Denies: headache(s) or dizziness Psych: Denies: anxiety or depression Endo: Denies: polyuria or hot flashes Papi/Lymph: Denies: easy bruising or easy bleeding Medications/Allergies Home Medications Medication Instructions Recorded Confirmed Last Taken Type aspirin 81 mg tablet,delayed 81 mg PO DAILY 90 Days #90 tab 12/31/19 03/30/20 03/29/20 Rx release cilostazol 100 mg tablet 50 mg PO BID 90 Days #90 tab 12/31/19 03/30/20 03/29/20 Rx lisinopril 10 mg tablet 10 mg PO DAILY 90 Days #90 tab 12/31/19 03/30/20 03/29/20 Rx nitroglycerin 0.4 mg sublingual 0.4 mg SUBLINGUAL Q5M PRN 30 Days 12/31/19 03/30/20 Unknown Rx tablet #25 tab simvastatin 20 mg tablet 20 mg PO DAILY 90 Days #90 tab 12/31/19 03/30/20 03/29/20 Rx venlafaxine 150 mg 150 mg PO DAILY 01/06/20 03/30/20 Unknown History capsule,extended release 24 hr albuterol sulfate 1 inh INHALATION QID PRN 03/30/20 03/30/20 Unknown History dulaglutide [Trulicity] 0.75 mg SUBCUT Q7D 03/30/20 03/30/20 Unknown History tiotropium bromide [Spiriva with 1 cap INHALATION DAILY 03/30/20 03/30/20 03/29/20 History HandiHaler] Allergies Allergy/AdvReac Type Severity Reaction Status Date / Time propoxyphene [From Darvon] Allergy Unknown Unknown Verified 12/18/19 16:55 Sulfa (Sulfonamide Allergy Unknown Unknown Verified 12/18/19 16:55 Antibiotics) PFSH Acute PFSH: Medical History CAD (coronary artery disease) COPD (chronic obstructive pulmonary disease) History of heart attack Hyperlipemia Left bundle branch block PVD (peripheral vascular disease) Type 2 diabetes mellitus Surgical History Hx of cardiac cath 2001: Stent placement to RCA July 2012: Stent placement to LAD with noted 60% proximal LCx lesion Hx of heart artery stent Hx of hysterectomy S/P cataract surgery S/P knee surgery S/P trigger finger release Family History Denies family history of Diabetes CAD (coronary artery disease) Clotting disorder Dementia Hyperlipidemia Psychiatric illness Chronic kidney disease (CKD) Suicide Anesthesia complication Bleeding disorder Family history of premature coronary artery disease Lung disease Cancer Hypertension Stroke Social History Smoking and tobacco status: current every day smoker cigarettes Packs smoked per day: 1 Alcohol intake: never Substance/Drug Use: never Current occupational status: retired Vitals/I&O/Wt Last Vital Signs Temp 97.8 F 03/30/20 05:29 Pulse 83 03/30/20 10:36 Resp 18 03/30/20 10:36 BP 114/56 03/30/20 10:36 Pulse Ox 97 03/30/20 10:36 Weight last 48 hrs Weight 48.534 kg Physical Exam Const: COMMON NORMALS: patient oriented x3 and alert GENERAL APPEARANCE: cooperative ORIENTATION/CONSCIOUSNESS: Yes awake, Yes oriented to person, Yes oriented to place and Yes oriented to time HENMT: COMMON NORMALS: normocephalic and atraumatic HEAD & SCALP: normocephalic and atraumatic Eye: COMMON NORMALS: Equal, round and reactive pupils present PUPIL: Yes Equal, round and reactive pupils present Neck/C-Spine: COMMON NORMALS: supple GENERAL: Yes normal visual inspection Resp: COMMON NORMALS: normal respiratory effort EFFORT & INSPECTION: Yes able to speak in complete sentences OTHER: No appreciable wheezing, diminished breath sounds bilaterally with prolonged expiratory phase Cardio: COMMON NORMALS: regular rate and regular rhythm RATE: regular rate RHYTHM: regular rhythm OTHER: Faint systolic murmur GI: COMMON NORMALS: Soft to palpation and non-tender INSPECTION: No abdominal distension AUSCULTATION: Yes normoactive bowel sounds PALPATION: Yes Soft to palpation : COMMON NORMALS: Yes no CVA tenderness BLADDER/KIDNEY EXAM: Yes no CVA tenderness Back/Pelvis: COMMON NORMALS: no CVA tenderness Extremity: COMMON NORMALS: no clubbing, cyanosis or edema and no calf tenderness Neuro: COMMON NORMALS: patient oriented x3, CN's II-XII intact bilaterally, moves all extremities and no focal motor deficits SENSORIUM/ORIENTATION: Yes alert, Yes oriented to person, Yes oriented to place and Yes oriented to time SPEECH: speech normal Psych: COMMON NORMALS: mental status grossly normal and cooperative Skin: COMMON NORMALS: no rashes or lesions noted GENERAL SKIN EXAM: no rashes or lesions noted Data : 03/30/20 05:40 03/30/20 05:40 Micro: Microbiology 03/30/20 08:05 Blood Culture - Preliminary Blood SPECIMEN COLLECTED 03/30/20 05:40 Blood Culture - Preliminary Blood SPECIMEN COLLECTED A&P Assessment and plan (1) Atrial fibrillation: New onset atrial fibrillation with RVR Given loading dose of Cardizem then converted to sinus rhythm Also concern for fluid overload while in the ER given Lasix x1 We will start on metoprolol 12.5 mg twice daily We will start on treatment dose Lovenox Echocardiogram ordered as her last one was in 2007 to evaluate further Cardiology consulted, appreciate recommendations and assistance in patient's care Status: Acute (2) Non-ST elevation ND (NSTEMI): Patient has a positive delta troponin of 26 in the setting of atrial fibrillation with RVR and known coronary artery disease. Question if delta troponin is type II process due to RVR. We will continue to monitor on telemetry with 6-hour EKG and troponin. Patient did have cardiac cath in 2011 with 60% proximal LCx lesion and stent to LAD Discussed with mirror silverer, Dr. Babin for consultation. Plan for cardiac stress test Status: Acute (3) COPD (chronic obstructive pulmonary disease): Without acute exacerbation No appreciable wheezing, continue home inhalers Oxygen per protocol, goal oxygen saturation of 90 to 92%. Patient is on 2 L oxygen by nasal cannula at baseline Status: Acute (4) CAD (coronary artery disease): Continue aspirin, increase to high intensity statin, start on low-dose metoprolol Follow-up with cardiology recommendations History of stent placement to RCA in 2001 and LAD in 2011 Status: Acute (5) Type 2 diabetes mellitus: Moderate dose sliding scale insulin as needed Status: Acute (6) PVD (peripheral vascular disease): Continue aspirin, statin, Pletal Status: Acute Additional A&P Information UTI: 2+ bacteria, positive nitrites, urine culture ordered and pending. Will place on Rocephin 1 g every 24 hours. DVT prophylaxis: Treatment dose Lovenox due to atrial fibrillation Diet: Carbohydrate consistent, cardiac diet CODE STATUS: Full code, this was discussed with patient and her at bedside and while in the ED Attestations Medical Necessity Statement*: Patient requires hospitalization due to new onset atrial fibrillation with non-ST elevation ND with known coronary artery disease and COPD as well as peripheral vascular disease and diabetes. Expected stay greater than 2 midnights Coding Level of Care Code Acute Con[employer] Yard for Chg Fwd Exam Comprehensive Diagnoses Atrial fibrillation I48.91 Non-ST elevation ND (NSTEMI) I21.4 COPD (chronic obstructive pulmonary disease) J44.9 CAD (coronary artery disease) I25.10 Type 2 diabetes mellitus E11.9 PVD (peripheral vascular disease) I73.9
--- NOTE | 2020-03-30 11:00 | P.CONIM_ITS ---
Providers/Reason For Consult Consulting Physican/Specialty*: Cardiovascular medicine Reason for Consult*: Request for cardiac catheterization Attending Physician: Albania Strong DO Primary Care Provider: Karen Meza History of Present Illness History of Present Illness Germaine Perez is a 79 year old female who is been admitted to the hospital with shortness of breath. She has a history of coronary disease which will be delineated below. 2 weeks ago she awoke in the middle of the night with shortness of breath came to the emergency room and was discharged. She had a COPD exacerbation. This morning at 4:00 she awoke again with shortness of breath. According to the emergency room notes and according to the information from the hospitalist the patient was in atrial fibrillation though I have no documentation of that. She was given Cardizem 20 mg I believe in the ambulance. By the time she arrived here she was apparently back in sinus rhythm. She was also given inhaled bronchodilators. Her initial troponin was 28 and the second 1 was 54. She has been admitted. She wants to go home. She has never had any chest pain. She has been a smoker for 63 years. She had a stent placed to her right coronary artery in 2001 at a different hospital. She had an LAD stent in 2012 here. Review of Systems General: Reports: 10 or more systems reviewed and unremarkable except in HPI and below Meds/Allergies Home Medications and Allergies Home Medications Medication Instructions Recorded Confirmed Last Taken Type aspirin 81 mg tablet,delayed 81 mg PO DAILY 90 Days #90 tab 12/31/19 03/30/20 03/29/20 Rx release cilostazol 100 mg tablet 50 mg PO BID 90 Days #90 tab 12/31/19 03/30/20 03/29/20 Rx lisinopril 10 mg tablet 10 mg PO DAILY 90 Days #90 tab 12/31/19 03/30/20 03/29/20 Rx nitroglycerin 0.4 mg sublingual 0.4 mg SUBLINGUAL Q5M PRN 30 Days 12/31/19 03/30/20 Unknown Rx tablet #25 tab simvastatin 20 mg tablet 20 mg PO DAILY 90 Days #90 tab 12/31/19 03/30/20 03/29/20 Rx venlafaxine 150 mg 150 mg PO DAILY 01/06/20 03/30/20 Unknown History capsule,extended release 24 hr albuterol sulfate 1 inh INHALATION QID PRN 03/30/20 03/30/20 Unknown History dulaglutide [Trulicity] 0.75 mg SUBCUT Q7D 03/30/20 03/30/20 Unknown History tiotropium bromide [Spiriva with 1 cap INHALATION DAILY 03/30/20 03/30/20 03/29/20 History HandiHaler] Allergies Allergy/AdvReac Type Severity Reaction Status Date / Time propoxyphene [From Darvon] Allergy Unknown Unknown Verified 12/18/19 16:55 Sulfa (Sulfonamide Allergy Unknown Unknown Verified 12/18/19 16:55 Antibiotics) PFSH Acute PFSH: Medical History (Updated 03/30/20 @ 11:05 by José Manuel Babin MD) CAD (coronary artery disease) COPD (chronic obstructive pulmonary disease) History of heart attack Hyperlipemia Left bundle branch block PVD (peripheral vascular disease) Type 2 diabetes mellitus Surgical History (Updated 03/30/20 @ 11:04 by José Manuel Babin MD) Hx of cardiac cath 2001: Stent placement to RCA July 2012: Stent placement to LAD with noted 60% proximal LCx lesion Hx of heart artery stent Hx of hysterectomy S/P cataract surgery S/P knee surgery S/P trigger finger release Family History Denies family history of Diabetes CAD (coronary artery disease) Clotting disorder Dementia Hyperlipidemia Psychiatric illness Chronic kidney disease (CKD) Suicide Anesthesia complication Bleeding disorder Family history of premature coronary artery disease Lung disease Cancer Hypertension Stroke Social History (Updated 03/30/20 @ 10:55 by Albania Strong DO) Smoking and tobacco status: current every day smoker cigarettes Packs smoked per day: 1 Alcohol intake: never Substance/Drug Use: never Current occupational status: retired Vitals/I&O/Wt Last Vital Signs Temp 97.8 F 03/30/20 05:29 Pulse 83 03/30/20 10:36 Resp 18 03/30/20 10:36 BP 114/56 03/30/20 10:36 Pulse Ox 97 03/30/20 10:36 Weight last 48 hrs Weight 107 lb Physical Exam Narrative: EXAM NARRATIVE: GENERAL: In general she looks comfortable at rest now and wants to go home HEENT: Exam within normal limits. NECK: Supple without jugular vein distention. The carotid upstroke is normal without bruits. BACK: Exam normal. LUNGS: Decreased breath sounds bilaterally with occasional wheezes HEART: Regular rate and rhythm. ABDOMEN: Benign without organomegaly or tenderness. EXTREMITIES: No edema. NEUROLOGIC: Exam normal. SKIN: Unremarkable. Data Micro: Micro: Microbiology 03/30/20 08:05 Blood Culture - Pr eliminary Blood SPECIMEN [facility] 03/30/20 05:40 Blood Culture - Pr eliminary Blood SPECIMEN [facility] Other Data: Other data: EKGs from previously and from today shows sinus rhythm with a left bundle branch block. The BNP is 5804. First troponin 28, second 54. Chest x-ray shows possible pneumonia and to my eye no evidence of volume overload. A&P Assessment and plan (1) PVD (peripheral vascular disease): Status: Acute (2) Type 2 diabetes mellitus: Status: Acute (3) COPD (chronic obstructive pulmonary disease): Status: Acute (4) Acute exacerbation of chronic obstructive airways disease: Status: Acute (5) CAD (coronary artery disease): Status: Acute (6) Hx of cardiac cath: Status: Acute (7) Hyperlipemia: Status: Acute (8) Left bundle branch block: Status: Acute Additional A&P Information I have not seen the atrial fibrillation so cannot prove it was there. She would certainly be at high risk for atrial fibrillation but is now in sinus rhythm with a left bundle branch block. In looking back at her old EKG she has had a left bundle branch block in the past so it is not new. The elevation in the troponin could be due to coronary disease but could also be due to the atrial fibrillation if it was there. I am not convinced on the basis of her chest x- ray that she has heart failure. To my eye looks more like she may have a pneumonia. I think she needs a stress test first which will be a Lexiscan sestamibi. I am not convinced that this is necessarily coronary disease so do not think she needs a cardiac catheterization unless the stress test is abnormal. Consult Attestations Medical Necessity Statement: Not applicable Coding Level of Care Code New Pt Acute Chief Clinical Dietitian for Chg Fwd Patient Type New History Detailed Exam Detailed Medical Decision Making Moderate Complexity Diagnoses PVD (peripheral vascular disease) I73.9 Type 2 diabetes mellitus E11.9 COPD (chronic obstructive pulmonary disease) J44.9 Acute exacerbation of chronic obstructive airways disease J44.1 CAD (coronary artery disease) I25.10 Hx of cardiac cath Z98.890 Hyperlipemia E78.5 Left bundle branch block I44.7
--- NOTE | 2020-03-30 11:32 | ECG_ITS ---
Measurements Intervals [place] Rate: 80 P: 64 ID: [id number] QRS: 6 QRSD: 158 T: 167 QT: 472 QTc: 547 SINUS RHYTHM POSSIBLE LEFT ATRIAL ENLARGEMENT [-0.1mV P WAVE IN V1/V2] LEFT BUNDLE BRANCH BLOCK [120+ ms QRS DURATION, 80+ ms Q/S IN V1/V2, 85+ ms R IN I/aVL/V5/V6] Compared to ECG 03/06/2020 02:16:10 No significant changes Electronically Signed On 03-30-2020 21:02:33 CDT by Sanjeev White M.D. [id number]
[2020-03-30] MEDS: metoprolol tartrate 25 mg Tablet 12.5 MG PO ×2 (11:43→20:56)
[2020-03-30] MEDS: nicotine 21 mg Patch 1 PATCH TRANSDERMA (11:44)
[2020-03-30 11:51] LABS: Glucose Point of Care 198 mg/dL (70-110)
[2020-03-30 12:05] LABS: INR 0.97 (0.8-1.2)
[2020-03-30 12:14] LABS: Troponin 5 6HR 44.47 ng/mL (0-10)
[2020-03-30 12:21] LABS: Thyroid Stimulating Hormone 1.75 uIU/mL (0.27-4.20)
[2020-03-30 12:54] LABS: Troponin 5 6HR Delta 16.47 ng/L (0-12)
[2020-03-30] MEDS: cefTRIAXone 1,000 MG in sodium chloride 0.9% (plus) 50 ML 100 MG IV (13:06)
--- NOTE | 2020-03-30 15:31 | PC.NURSE ---
PATIENT TAKEN OFF OXYGEN. O2 SATS ARE 93% ON ROOM AIR. DR. LOUIS NOTIFIED. WANTS PATIENT'S SATURATIONS TO BE 88-92%.
[2020-03-30 16:19] LABS: Glucose Point of Care 228 mg/dL (70-110)
[2020-03-30] MEDS: cilostazol 100 mg Tablet 50 MG PO (17:08)
--- NOTE | 2020-03-30 19:28 | PC.NURSE ---
Patient is talking on the phone. Patient is not complaining of any shortness of breath or pain at this time. Heart rate is 90s SR. Patient has call light within reach. Will continue to monitor.
[2020-03-30 20:44] LABS: Glucose Point of Care 241 mg/dL (70-110)
[2020-03-30] MEDS: atorvastatin 40 mg Tablet PO (20:56)
[2020-03-31] VITALS (8 sets, daily range): BP systolic 108–128; BP diastolic 53–74; PULSE 69–90; RESP 12–26; TEMP 36.5–36.9; O2SAT 92–99
[2020-03-31 03:48] LABS: Basophils % 0.1 %; Hematocrit 37.3 % (37.0-47.0); Hemoglobin 12.2 g/dL (11.5-15.3); Lymphocytes # 1.2 10^3/uL (0.8-4.8); Lymphocytes % 13.8 %; Mean Corpuscular HGB Conc 32.7 g/dL (30.0-36.0); Mean Corpuscular Hemoglobin 30.7 pg (28.0-34.0); Mean Corpuscular Volume 93.7 fL (81-99); Mean Platelet Volume 11.6 fL (7.4-10.4); Monocytes # 0.6 10^3/uL (0.2-0.9); Monocytes % 7.3 %; Neutrophils # 6.8 10^3/uL (1.8-7.7); Neutrophils % 78.3 %; Nucleated Red Blood Cells % 0 %; Platelet Count 150 10^3/cmm (130-400); Red Blood Count 3.98 10^6/uL (4.1-5.3); Red Cell Distribution Width 13.3 % (12.1-15.1); White Blood Count 8.7 10^3/uL (4.0-10.0)
[2020-03-31 04:02] LABS: Chol HDL Ratio 2.21 mg/dL (0.0-4.40); Cholesterol 148 mg/dL (0-200); HDL Cholesterol 67 mg/dL (60-100); LDL Cholesterol Calculated 68 mg/dL (50-129); LDL HDL Ratio 1.01 RATIO (0.00-3.22); Triglycerides 63 mg/dL (0-150)
[2020-03-31 04:03] LABS: Alanine Aminotransferase 51 U/L (0-33); Albumin Level 3.8 g/dL (3.5-5.2); Alkaline Phosphatase 108 IU/L (35-105); Anion Gap 14.2 (5-19); Aspartate Amino Transferase 36 U/L (0-32); Blood Urea Nitrogen 20 mg/dL (8-23); Calcium 9.1 mg/dL (8.5-10.5); Carbon Dioxide 24 mmol/L (22-29); Chloride 107 mmol/L (98-107); Globulin 2.1 g/dL (1.3-4.6); Glucose 136 mg/dL (65-115); Osmolality Calculated 291 mOsm/kg (285-295); Potassium 4.2 mmol/L (3.5-5.1); Sodium 141 mmol/L (136-145); Total Bilirubin 0.4 mg/dL (0.15-1.2); Total Protein 5.9 g/dL (6.6-8.7)
--- NOTE | 2020-03-31 04:07 | PC.NURSE ---
Patient asked that her SCDs be taken off for a little bit due to being uncomfortable on her legs.
--- NOTE | 2020-03-31 06:00 | ECG_ITS ---
NAME OF STUDY: LEXISCAN SESTAMIBI STRESS TEST INDICATION: Chest Pain, LEXISCAN STRESS TEST ORDERING PHYSICIAN: Talya CLINICAL INFORMATION: Troponin elevation, left ventricular dysfunction INTERPRETATION: 1. The patient was brought to the laboratory where Lexiscan was infused over 20 seconds. The resting blood pressure was 100/66. Maximum blood pressure was 131/70. The resting heart rate was 76 beats per minute. The maximum heart rate is 92 beats per minute. 2. The baseline electrocardiogram reveals sinus rhythm with a left bundle branch block 3. With Lexiscan infusion, there were no ST segment changes to suggest ischemia. 4. The patient experienced no symptoms or arrhythmias during the examination. CONCLUSION: 1. Unremarkable Lexiscan infusion. 2. Nuclear imaging to follow. Electronically Signed On 03-31-2020 11:13:36 CDT by José Manuel Babin M.D. [id number]
--- NOTE | 2020-03-31 06:20 | PM.PN ---
Subjective Subjective: Interval history: Patient feels fine and wants to go home. Medications: Reviewed: Yes Vitals/I&O/Wt Last Vital Signs Temp 98 F 03/31/20 04:00 Pulse 77 03/31/20 04:00 Resp 26 H 03/31/20 04:00 BP 114/63 03/31/20 04:00 Pulse Ox 94 03/31/20 04:00 03/30/20 03/30/20 03/31/20 14:59 22:59 06:59 Intake Total 120 / 120 300 / 420 Output Total 200 / 200 450 / 650 650 / 1300 Balance -80 / -80 -450 / -530 -350 / -880 Weight last 48 hrs Weight 115 lb 1.6 oz Weight 107 lb Physical Exam Narrative: EXAM NARRATIVE: GENERAL: Comfortable at rest HEENT: Exam within normal limits. NECK: Supple without jugular vein distention. The carotid upstroke is normal without bruits. BACK: Exam normal. LUNGS: Clear. Mild occasional scattered wheezes HEART: Regular rate and rhythm. ABDOMEN: Benign without organomegaly or tenderness. EXTREMITIES: No edema. NEUROLOGIC: Exam normal. SKIN: Unremarkable. Data : 03/31/20 03:34 03/31/20 03:34 Micro: Microbiology 03/30/20 05:40 Blood Culture - Preliminary Blood NEGATIVE TO DATE 03/30/20 08:05 Blood Culture - Preliminary Blood SPECIMEN COLLECTED A&P Assessment and plan (1) Cardiomyopathy: Status: Acute (2) Left bundle branch block: Status: Acute (3) Hx of cardiac cath: Status: Acute (4) Type 2 diabetes mellitus: Status: Acute (5) Hyperlipemia: Status: Acute (6) COPD (chronic obstructive pulmonary disease): Status: Acute (7) Congestive heart failure: Status: Acute (8) Acute exacerbation of chronic obstructive airways disease: Status: Acute (9) CAD (coronary artery disease): Status: Acute (10) PVD (peripheral vascular disease): Status: Acute Additional A&P Information Her echo shows a globally hypokinetic ventricle with an ejection fraction of 30%. This may be partially responsible for her symptoms. She is already on a beta-anthony, aspirin, STERLING inhibitor, statin. I will add Aldactone. She will get the stress test today and then further recommendations will be made. She will need an echo in 3 months to reassess her LV function. 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
[2020-03-31] MEDS: regadenoson 0.4 Mg/5 ml Syringe IVP (07:50)
--- NOTE | 2020-03-31 09:07 | PC.NURSE ---
ORDERED FROM DR. LOUIS TO CHANGE METOPROLOL DOSE TO BE GIVEN AT 0900 AND 2100.
[2020-03-31] MEDS: enoxaparin 60 mg/0.6 mL Syringe 50 MG SUBCUT (09:39)
[2020-03-31] MEDS: nicotine 21 mg Patch 1 PATCH TRANSDERMA (09:39)
[2020-03-31] MEDS: lisinopril 10 mg Tablet PO (09:40)
[2020-03-31] MEDS: cilostazol 100 mg Tablet 50 MG PO (09:40)
[2020-03-31] MEDS: spironolactone 25 mg Tablet 12.5 MG PO (09:40)
[2020-03-31] MEDS: metoprolol tartrate 25 mg Tablet 12.5 MG PO (09:40)
[2020-03-31] MEDS: aspirin 81 mg EC Tablet PO (09:40)
[2020-03-31] MEDS: venlafaxine ER (24HR) 150 mg Capsule PO (09:41)
--- NOTE | 2020-03-31 11:02 | NMCV_ITS ---
NM kacy perf SPECT r/s* [id number] Germaine Perez Age: 79 Gender: F : 1940 Exam Date: 03/31/2020 11:02 Ordering Phys: Albania Strong DO Technologist: NOEMI Machado Exam Location: [facility] Indications: SOB STRESS TEST Please see separate stress test report in [facility] for full findings IMAGE PROTOCOL Rest/Stress 1 Lexiscan Day Radiopharmaceutical Dose (mCi) Administration Site Administered by Rest: Tc-99m 10.8 IV NOEMI Calderon Sestamibi Stress:Tc-99m 32.4 IV NOEMI Calderon Sestamibi Rest: 31-Mar-2020 60 Discovery 630 Stress: 31-Mar-2020 30 Discovery 630 0.4mg Lexiscan. Supine position only as patient was unable to lay prone. SPECT RESULTS Technical Quality: Excellent Raw Data Analysis: Normal Image Corrections: No attenuation or motion correction applied Summed Stress Score: 12 Summed Rest Score: 9 Summed Difference Score: 5 PERFUSION FINDINGS Medium-sized area of moderate to severe reversibility noted in mid to distal anterior and anteroseptal wall suggestive of ischemia in the LAD territory. Medium-sized area of fixed perfusion defect noted in basal to mid inferior and inferolateral wall suggestive of old myocardial infarction versus scarring. Please note that patient was not able to perform the prone images therefore cannot rule out artifact. FUNCTIONAL RESULTS (calculated via Gated SPECT) Stress Image LV EF (%): 18 Stress EDV (mL):249 TID: 1.07 Stress ESV (mL):203 Rest Image LV EF (%): 18 FUNCTIONAL FINDINGS: Mid to distal anterior anteroseptal wall akinesis. Basal to mid inferior wall akinesis. Patient has severely depressed ejection fraction. IMPRESSIONS Medium-sized area of moderate to severe reversibility noted in mid to distal anterior and anteroseptal wall suggestive of ischemia in the LAD territory. Medium-sized area of fixed perfusion defect noted in basal to mid inferior and inferolateral wall suggestive of old myocardial infarction versus scarring. Please note that patient was not able to perform the prone images therefore cannot rule out artifact. Left ventricle function is severely depressed. Mateo Montes MD (Electronically Signed) Final Date: 31 March 2020 15:00 S
[2020-03-31 11:55] LABS: Glucose Point of Care 235 mg/dL (70-110)
[2020-03-31 11:55] LABS: Glucose Point of Care 126 mg/dL (70-110)
[2020-03-31] MEDS: cefTRIAXone 1,000 MG in sodium chloride 0.9% (plus) 50 ML 100 MG IV (12:26)
--- NOTE | 2020-03-31 16:04 | P.DS_ITS ---
Discharge Providers Date of Admission: 03/30/20 09:33 Date of Discharge: March 31, 2020 Attending Provider at Admission: Albania Strong DO Attending Provider at Discharge: Albania Strong DO Primary Care Provider: Karen Meza Diagnoses at Discharge Discharge Diagnosis (1) Cardiomyopathy: Status: Acute (2) Left bundle branch block: Status: Acute (3) Hx of cardiac cath: Status: Acute Problem details: 2001: Stent placement to RCA July 2012: Stent placement to LAD with noted 60% proximal LCx lesion (4) Type 2 diabetes mellitus: Status: Acute (5) Hyperlipemia: Status: Acute Problem details: Increase to high intensity statin (6) COPD (chronic obstructive pulmonary disease): Status: Acute Problem details: Chronically on 2 L by nasal cannula (7) Congestive heart failure: Status: Acute Problem details: Systolic, LVEF of 30% (8) Acute exacerbation of chronic obstructive airways disease: Status: Acute (9) CAD (coronary artery disease): Status: Acute (10) PVD (peripheral vascular disease): Status: Acute Reason for Visit Reason for Visit: SOB Hospital Course Hospital Course: Patient was noted to have shortness of breath and palpitations prior to arrival to the hospital. She called 911 and was brought into the emergency department by EMS. She was noted to have atrial fibrillation with RVR at that time given a loading dose of Cardizem and converted to sinus rhythm by the time she arrived to the ED. Patient remained in sinus rhythm but due to concern for coronary artery disease and chest pain she was admitted for further evaluation and treatment. Serial EKG and troponin were performed. Concern for non-ST elevation MD with delta troponin, the delta troponin was felt to be related to rapid ventricular response and cardiac strain. Cardiology was consulted on admission, Dr. Babin. Patient had an echocardiogram performed which showed an LVEF of 30%. She was given 1 dose of Lasix while in the emergency department and remained euvolemic. Patient was kept n.p.o. for stress test. Stress test showed medium sized area of reversible change in the mid to distal anterior and anterior septal wall suggestive of ischemia in the LAD. Despite concern on stress test patient on his inability to lie prone for images therefore question of artifact. Patient denied any chest pain or shortness of breath on date of discharge cardiology reevaluated and deemed patient stable for discharge with the plan for follow-up in clinic in 1 week. Patient was also told to present to the ED for any acute worsening of chest pain or shortness of breath. Physical Exam Const: COMMON NORMALS: patient oriented x3 and alert GENERAL APPEARANCE: cooperative ORIENTATION/CONSCIOUSNESS: Yes awake, Yes oriented to person, Yes oriented to place and Yes oriented to time HENMT: COMMON NORMALS: normocephalic and atraumatic HEAD & SCALP: normocephalic and atraumatic Eye: COMMON NORMALS: Equal, round and reactive pupils present PUPIL: Yes Equal, round and reactive pupils present Neck/C-Spine: COMMON NORMALS: supple GENERAL: Yes normal visual inspection Resp: COMMON NORMALS: normal respiratory effort EFFORT & INSPECTION: Yes able to speak in complete sentences OTHER: No appreciable wheezing, diminished breath sounds bilaterally with prolonged expiratory phase Cardio: COMMON NORMALS: regular rate and regular rhythm RATE: regular rate RHYTHM: regular rhythm OTHER: Faint systolic murmur GI: COMMON NORMALS: Soft to palpation and non-tender INSPECTION: No abdominal distension AUSCULTATION: Yes normoactive bowel sounds PALPATION: Yes Soft to palpation : COMMON NORMALS: Yes no CVA tenderness BLADDER/KIDNEY EXAM: Yes no CVA tenderness Back/Pelvis: COMMON NORMALS: no CVA tenderness Extremity: COMMON NORMALS: no clubbing, cyanosis or edema and no calf tenderness Neuro: COMMON NORMALS: patient oriented x3, CN's II-XII intact bilaterally, moves all extremities and no focal motor deficits SENSORIUM/ORIENTATION: Yes alert, Yes oriented to person, Yes oriented to place and Yes oriented to time SPEECH: speech normal Psych: COMMON NORMALS: mental status grossly normal and cooperative Skin: COMMON NORMALS: no rashes or lesions noted GENERAL SKIN EXAM: no rashes or lesions noted Discharge Data Data Completed and Pending: Completed Studies During Hospitalization Category Date Time Status Sestamibi Stress Test Request Routi ne Exams 03/31/20 06:00 Completed XR chest 1V destiny ble [id number] Stat Exams 03/30/20 05:31 Completed NM kacy perf SPECT r/s* [id number] Routin e Nuc Med 03/31/20 11:02 Completed CV echo complete* [id number] Routine Ultrasound 03/30/20 10:34 Completed Pending at discharge Category Date Time Status Sestamibi Stress Test Request Routi ne Exams 03/30/20 11:01 Stop Req Basic Metabolic P tiffanie AM LABS Lab 04/01/20 04:00 Ordered Basic Metabolic P tiffanie AM LABS Lab 04/02/20 04:00 Ordered Blood Culture Sta t Lab 03/30/20 08:05 Results Urine Culture Sta t Lab 03/30/20 07:08 Results Labs from last 24 hours 03/31/20 03/31/20 03/31/20 11:27 06:21 03:34 WBC RBC Hgb Hct MCV MCH MCHC RDW Plt Count MPV Neut % (Auto) Lymph % (Auto) [place] % (Auto) Eos % (Auto) Baso % (Auto) Neut # (Auto) Lymph # (Auto) [place] # (Auto) Eos # (Auto) Baso # (Auto) Nucleated RBC % (a uto) Nucleated RBCs # Sodium Potassium Chloride Carbon Dioxide Anion Gap BUN Creatinine Glucose POC Glucose 235 126 Calculated Osmolal ity Calcium Total Bilirubin AST ALT Alkaline Phosphata se Total Protein Albumin Globulin Triglycerides 63 Cholesterol 148 LDL Cholesterol, C alc 68 HDL Cholesterol 67 LDL/HDL Ratio 1.01 Cholesterol/HDL Ra ansley 2.21 03/31/20 03/31/20 03/30/20 03:34 03:34 20:35 WBC 8.7 RBC 3.98 L Hgb 12.2 Hct 37.3 MCV 93.7 MCH 30.7 MCHC 32.7 RDW 13.3 Plt Count 150 MPV 11.6 H Neut % (Auto) 78.3 Lymph % (Auto) 13.8 [place] % (Auto) 7.3 Eos % (Auto) 0.0 Baso % (Auto) 0.1 Neut # (Auto) 6.8 Lymph # (Auto) 1.2 [place] # (Auto) 0.6 Eos # (Auto) 0.0 Baso # (Auto) 0.0 Nucleated RBC % (a uto) 0 Nucleated RBCs # 0.0 Sodium 141 Potassium 4.2 Chloride 107 Carbon Dioxide 24 Anion Gap 14.2 BUN 20 Creatinine 0.7 Glucose 136 H POC Glucose 241 Calculated Osmolal ity 291 Calcium 9.1 Total Bilirubin 0.4 AST 36 H ALT 51 H Alkaline Phosphata se 108 H Total Protein 5.9 L Albumin 3.8 Globulin 2.1 Triglycerides Cholesterol LDL Cholesterol, C alc HDL Cholesterol LDL/HDL Ratio Cholesterol/HDL Ra ansley 03/30/20 16:15 WBC RBC Hgb Hct MCV MCH MCHC RDW Plt Count MPV Neut % (Auto) Lymph % (Auto) [place] % (Auto) Eos % (Auto) Baso % (Auto) Neut # (Auto) Lymph # (Auto) [place] # (Auto) Eos # (Auto) Baso # (Auto) Nucleated RBC % (a uto) Nucleated RBCs # Sodium Potassium Chloride Carbon Dioxide Anion Gap BUN Creatinine Glucose POC Glucose 228 Calculated Osmolal ity Calcium Total Bilirubin AST ALT Alkaline Phosphata se Total Protein Albumin Globulin Triglycerides Cholesterol LDL Cholesterol, C alc HDL Cholesterol LDL/HDL Ratio Cholesterol/HDL Ra ansley Vitals: Last Vital Signs Temp 98.4 F 03/31/20 11:29 Pulse 69 03/31/20 13:08 Resp 18 03/31/20 13:08 BP 110/72 03/31/20 11:29 Pulse Ox 92 03/31/20 13:08 Discharge Plan Discharge Patient Disposition: Home, Self-Care Condition: Stable Prescriptions: New atorvastatin 40 mg Tablet 40 mg PO BEDTIME 30 Days Qty: 30 RF: 0 spironolactone 25 mg Tablet 12.5 mg PO DAILY 30 Days Qty: 30 RF: 0 nicotine 21 mg/24 hr Patch 24 Hour 1 patch transdermal DAILY 14 Days Qty: 14 RF: 0 metoprolol tartrate 25 mg Tablet 12.5 mg PO Q12H 30 Days Qty: 60 RF: 0 Eliquis 5 mg tablet 5 mg PO Q12H 30 Days Qty: 60 RF: 0 ciprofloxacin HCl 500 mg tablet 500 mg PO Q12H 3 Days Qty: 6 RF: 0 Continued venlafaxine 150 mg capsule,extended release 24hr 150 mg PO DAILY RF: 0 lisinopril 10 mg tablet 10 mg PO DAILY 90 Days Qty: 90 RF: 3 nitroglycerin [Nitrostat] 0.4 mg tablet, sublingual 0.4 mg SUBLINGUAL Q5M PRN (Reason: chest pain) 30 Days Qty: 25 RF: 6 aspirin [Adult Low Dose Aspirin] 81 mg tablet,delayed release (DR/EC) 81 mg PO DAILY 90 Days Qty: 90 RF: 3 albuterol sulfate 90 mcg/actuation Hfa Aerosol Inhaler 1 inh INHALATION QID PRN (Reason: Shortness Of Breath) RF: 0 Spiriva with HandiHaler 18 mcg Capsule, W/Inhalation Device 1 cap INHALATION DAILY RF: 0 Trulicity 0.75 mg/0.5 mL Pen Injector 0.75 mg SUBCUT Q7D RF: 0 Discontinued cilostazol 100 mg tablet 50 mg PO BID 90 Days Qty: 90 RF: 3 simvastatin 20 mg tablet 20 mg PO DAILY 90 Days Qty: 90 RF: 3 Referrals: Karen Meza PA [Primary Care Provider] - Discharge Diet: Cardiac and Diabetic Discharge Activity: Increase activity as tolerated and Oxygen as instructed Activity Restrictions/Additional Instructions: You were admitted to the hospital for atrial fibrillation, this is an irregular heart rate. This heart rate can put you at an increased risk of stroke therefore you have been started on a blood thinner. Blood thinner is called Eliquis it is dosed at 5 mg twice daily. You have also been started on a heart medication to help out with your heart rate called metoprolol, this is 12.5 mg every 12 hours. You did have a stress test performed which showed some changes to a specific area of the front of the heart, after discussion with cardiology it was elected to hold off on any type of cardiac cath, angiogram, at this time. Please present to the emergency department if you develop any symptoms of chest pain, shortness of breath or any other acute illness or concern. Follow-up with cardiology as recommended in 7 to 10 days. You were also noted to have changes to your heart consistent with congestive heart failure. Your ejection fraction was 30%. You were also started on some medications to help with this. You are recommended to have a repeat cardiac ultrasound, echocardiogram, in 3 months. Started on beta-anthony, Aldactone at 12.5 mg daily Noted to have a urinary tract infection, given 3 days of ciprofloxacin Continue with your oxygen as ordered, goal oxygen saturation of 90 to 92% due to your COPD Strongly encouraged tobacco cessation, nicotine patch sent to your pharmacy Increased your statin intensity. Discontinue simvastatin and start on atorvastatin Continue to monitor your blood sugars and present a log to your primary care provider for further instruction and adjustment of medications. Please call your physician or present to the ED for any acute illness or concern. Follow-up with your primary care provider in 3 to 5 days. Follow-up with cardiology clinic, Dr. Gomes, in 7 to 10 days. Discharge Attestations Time Spent in Discharge Care*: greater than 30 min Specific Discharge Activities: Specific discharge activities: educating and/or supporting family/caregiver and discussing with pcp/other providers Time Spent in Smoking Cessation: Time spent discussing smoking cessation with patient: 3 to 10 minutes Quality Metrics Clinical Quality Measures During this hospital stay, did patient experience: None Coding Level of Care Code Acute Nurse Unit Manager for Hebertg Fwd Exam Comprehensive Diagnoses Cardiomyopathy I42.9 Left bundle branch block I44.7 Hx of cardiac cath Z98.890 Type 2 diabetes mellitus E11.9 Hyperlipemia E78.5 COPD (chronic obstructive pulmonary disease) J44.9 Congestive heart failure I50.9 Acute exacerbation of chronic obstructive airways disease J44.1 CAD (coronary artery disease) I25.10 PVD (peripheral vascular disease) I73.9
[2020-03-31 16:53] LABS: Glucose Point of Care 114 mg/dL (70-110)
--- NOTE | 2020-04-01 10:47 | PC.RESP ---
Smoking Cessation information sent to patient.
== END 2020-03-31 17:58 | disposition home or self-care (01) | DRG 314 ==
LOC: ER 06:37 → CSU 10:24
PROVIDERS: Emergency Medicine; Family Medicine; Admitting Provider Family Medicine; PCP Physician Assistant; Visit Provider Family Medicine
DX: I42.9 Cardiomyopathy, unspecified (principal); I50.21 Acute systolic (congestive) heart failure; J44.1 Chronic obstructive pulmonary disease with (acute) exacerbation; N39.0 Urinary tract infection, site not specified; I48.91 Unspecified atrial fibrillation; I25.10 Atherosclerotic heart disease of native coronary artery without angina pectoris; Z95.5 Presence of coronary angioplasty implant and graft; I11.0 Hypertensive heart disease with heart failure; E11.51 Type 2 diabetes mellitus with diabetic peripheral angiopathy without gangrene; F17.210 Nicotine dependence, cigarettes, uncomplicated; E78.5 Hyperlipidemia, unspecified; I44.7 Left bundle-branch block, unspecified; Z99.81 Dependence on supplemental oxygen; Z79.82 Long term (current) use of aspirin; Z79.51 Long term (current) use of inhaled steroids; Z79.4 Long term (current) use of insulin
CPT/HCPCS: 12345; 36415; 36416; 36600; 71045; 78452; 80048; 80053; 80061; 81001; 82803; 82962; 83735; 83880; 84443; 84484; 85025; 85610; 87040; 87077; 87086; 87186; 87205; 93005; 93017; 93306; 94640; 96372; 96375; 99283; A9500; G0297; J0696; J1650; J1815; J1940; J1956; J2785; J2930; J7614

== ENCOUNTER → 2020-04-11 09:12 | Day surgery (SDC) | payer MEDICARE, SELFPAY ==
[2020-04-11] MEDS: diphenhydrAMINE 50 mg Capsule PO (09:41)
--- NOTE | 2020-04-11 10:05 | SUR.PREOP ---
Upon questioning the patient about her last medication administration times she states that she did not hold her Eliquis. She states that her kids take care of all of her meds and they set an alarm on her phone for [address] Montes was made aware and orders were received to have the patient Covid tested today. Once the test results come back the patient will be rescheduled for LHC. Lana, Dr. Montes's nurse in [facility], was notified. This was explained in detail to the patient and she verbalized her understanding and agreement to proceed with Covid testing, rescheduling the LHC once the results come back, and to hold her Eliquis 48 hours prior when rescheduled.
--- NOTE | 2020-04-11 10:33 | SUR.PREOP ---
The Covid test was completed and the patient was sent home with typed and written instructions for when her LHC gets rescheduled.
== END ==
PROVIDERS: PCP Physician Assistant; Visit Provider Internal Medicine Cardiovascular Disease
DX: R94.39 Abnormal result of other cardiovascular function study (principal); I50.9 Heart failure, unspecified; R07.9 Chest pain, unspecified; Z53.8 Procedure and treatment not carried out for other reasons
CPT/HCPCS: Q0163

== ENCOUNTER 2020-04-19 12:15 | Observation (INO) | payer MEDICARE, SELFPAY ==
[2020-04-19] VITALS (15 sets, daily range): BP systolic 106–129; BP diastolic 46–62; PULSE 55–67; RESP 1–21; TEMP 36.7; O2SAT 81–100; BMI 19.1
--- NOTE | 2020-04-19 09:00 | XACV_ITS ---
Ht: 160 cm Wt: 49 kg BSA: 1.47 m2 Gender: Female : 1940 Exam Priority: Routine Procedure(s): Procedure Description: Diagnostic procedure Diagnostic Cath Status: Elective Diagnostic Findings LM has 0% stenosis. LAD has 0% stenosis. CX has 0% stenosis. pRCA to mRCA: Mild 30% stenosis, MARTY: 3 flow. Coronary angiography shows right dominance. PCI Status: Elective Conclusions Mild left ventricular systolic dysfunction. Ejection fraction of 45%. 1-Normal left main2-LAD has luminal irregularities with patent previously placed mid segment stent2-LCx has luminal irregularity with without significant stenosis3-RCA has luminal irregularities with patent previously placed stent however there is in-stent restenosis which is recorded at 30%. Indication for left heart cath: Abnormal stress test, left ventricle dysfunction. Recommendations Continue current medical management and risk factor modification. Diagnostic RX Recommendation: medical therapy and/or counseling Ejection Fraction: 45.0 % Pressures Phase:Rest AO : 130 mmHg / 53 mmHg ( 83 mmHg ) @ 6:53:00 AM 132 mmHg / 48 mmHg ( 82 mmHg ) @ 6:53:00 AM 131 mmHg / 53 mmHg ( 84 mmHg ) @ 6:53:00 AM LV : 243 mmHg / 189 mmHg / @ 6:50:00 AM 139 mmHg / 6 mmHg / @ 6:51:00 AM 191 mmHg / 44 mmHg / @ 6:53:00 AM 140 mmHg / 8 mmHg / @ 6:53:00 AM 132 mmHg / 8 mmHg / @ 6:53:00 AM Valves Phase:DefaultPhase AV : 0.0 mmHg @ 11:58:59 AM AV Mean Gradient: 0.0 mmHg @ 11:58:59 AM Clinical Evaluation EBL: 5mL-10mL Procedural Details Procedure Consent Obtained. Pre-Procedure Time Out. Identified patient by full name and date of as verbalized by the patient/guarantor. Does the consent match the physician's order: Yes. Accurate & Complete Informed Consent: Yes. Inpatient/Outpatient History & Physical on Chart: Yes. If H&P is completed, is and addenduem needed: N/A; If yes, is the addendum complete: N/A. Visualize and Verify Site with Patient/Guarantor: N/A. Relevant Radiology Images available: N/A. The risks, benefits, and alternatives of sedation and/or procedure were discussed by physician. The patient agrees to continue. Procedure started. PERRLA. Strong, equal hand social media senior associate bilaterally. Lungs clear x 5 lobes. IV Site on Arrival: 20 gauge in the left anticubital. IV Fluids: 0.9% NaCl at KVO. 0 mL infused prior to hatchery laborer. Pre Procedural Pulses: bilateral dorsalis pedis was 2+. Pre Procedural Pulses: bilateral posterior tibial was 2+. Pre Procedural Pulses: right radial was 3+. Oxygen started at 2liters/min via nasal canula. bilateral groins was prepped with chloroprep then draped in the usual sterile fashion. right radial was prepped with chloroprep then draped in the usual sterile fashion. Physician notified. [facility] Clinical Fraility Score: 3: Managing Well. Him Assistant Indications: Other. Chest Pain Symptom Assessment: Typical Angina Symptoms. Cardiovascular Instability: No,. Correct patient, site and procedure confirmed by cath team. Current diagnosis: Stable angina. Patient's family unavailable due to current Covid-19 restrictions. Her , Barry was notified via telephone of the start of the procedure. Equipment: 6F - Radial. Cardiac Cath Pack. ACIST Manifold Kit Model BT 2000. Heparinized Saline (2 units/mL), 1000 mL bag. Physician arrived. Physician scrubbed in. Immediate Pre-Procedure Time Out. Correct Patient: Yes; Correct Procedure: Yes; Correct Site: Yes; Correct Patient Position: Yes; Correct Supplies: Yes; Dried Flammable Prep: Yes; Blood Products Available: N/A. Lidocaine 1% infiltrated to the right radial. Arterial access obtained. A 5 lao TIG catheter in over wire. Catheter inserted over the exchange wire. Catheter out. Multiple views taken of left coronary artery. Catheter redirected to the RCA. Multiple views taken of right coronary artery. LV gram performed in ORELLANA @ 10 mL/second for a total of 30 mL. Patient's family updated. EDP Sample taken: LV 243/189,243; HR: 92 BPM; SpO2: 98%. EDP Sample taken: LV 139/6,21; HR: 72 BPM; SpO2: 99%. EDP Sample taken: LV 140/8,24; HR: 70 BPM; SpO2: 99%. Pullback taken: LV 132/8,21; AO 130/53(83); Mean: 0mmHg, Peak to Peak: 0mmHg, SEP: 11sec/min; HR: 69 BPM; SpO2: 99%. TR band placed. Hemostasis obtained. Post Procedure: Pulses reassessed and unchanged. PERRLA. Strong, equal hand social media senior associate bilaterally. No VTE prophylaxis required. Medication's Wasted: Lidocaine 1% = 18 mL. Medication's Wasted: Heparin = 1000 mL. Medication's Wasted: Nitro = 49.8 mL. Medication's Wasted: Other = 50 mg. Total IV fluids: 50 mL. Fluoro: 2:06. Contrast type used: Visipaque 320 mgI/mL, 500 mL bottle. [id number]. Post-op diagnosis: abnormal stress test. Complications: none. Estimated blood loss: 5mL-10mL. Procedure completed. Patient transferred by wheelchair to 1st floor. Site: Right Radial artery Sheath Size: 6 Fr Hemostasis Success: Unsuccessful Procedure Medications Start: 11:34 AM Stop: 11:34 AM Medication: Versed Amount: 1 mg Start: 11:35 AM Stop: 11:35 AM Medication: Fentanyl Amount: 50 mcg Route: I.V. Start: 11:38 AM Stop: 11:38 AM Medication: Versed Amount: 1 mg Route: I.V. Start: 11:38 AM Stop: 11:38 AM Medication: Nitrogylcerin Amount: 200 mcg Route: I.A. I, the attending physician, have reviewed and verified all procedure medications. Yes, all medications given per verbal order History/Risk Factors Hypertension: Yes Dyslipidemia: Yes Peripheral Arterial Disease (PAD): Yes Myocardial Infarction (AK): Yes Obesity: No Renal Disease: No Tobacco Use: Former Prior Interventions PCI: Yes Valve Surgery: No Date of PCI: 07/28/2012 Report Signatures Finalized by:Mateo Montes MD on 05/01/2020 4:29:49 PM
[2020-04-19] MEDS: diphenhydrAMINE 50 mg Capsule PO (09:30)
--- NOTE | 2020-04-19 11:31 | W.PM.OPSUD ---
Surgery/Procedure H&P Update DATE OF PROCEDURE: April 19, 2020 DATE H&P PERFORMED: 04/07/20 H&P UPDATE INFORMATION: I have reviewed H&P completed within last 30 days, I have examined patient prior to procedure and No changes to prior documentation PREOP DIAGNOSIS: Abnormal stress test/chest pain PLANNED PROCEDURE: Operation Date: 04/19/20 09:50 Proposed Procedures p Cardiac Catheterization(Left) - Mateo Montes MD PATIENT REASSESSED PRIOR TO SEDATION, WITH NO CHANGE NOTED: Yes PHYSICAL EXAM: alert, oriented x 3, clear to auscultation bilaterally and regular rate & rhythm AIRWAY EVAL/ANESTHESIA PLAN: ASA II and Risks, benefits & alternatives of sedation and/or procedure discussed
--- NOTE | 2020-04-19 13:37 | PC.NURSE ---
started to remove TR band; 3ML of air removed and patient began to bleed Air replaced abd bleeding was stopped patient educated on Tr band removal
--- NOTE | 2020-04-19 16:04 | PC.NURSE ---
TR band removed per protocol patient tolerated well. One episode of bleeding noted upon initial start of removal; no other bleeding episodes.
--- NOTE | 2020-04-19 17:30 | PC.NURSE ---
patient discharged home at this time. Discharge instructions given and explained patient verbalized understanding. IV dc cath intact min bleeding noted dressing in place. patient assisted to emergency room entrance via wheel chair; where she insisted on awaiting her spouse patient has a cell phone and has called her spouse. Discharge instructions in hand as well as all belongings
== END 2020-04-19 17:28 | disposition home or self-care (01) ==
LOC: CSU 12:20
PROVIDERS: Admitting Provider Internal Medicine Cardiovascular Disease; PCP Physician Assistant; Visit Provider Internal Medicine Cardiovascular Disease
DX: R94.39 Abnormal result of other cardiovascular function study (principal); R07.9 Chest pain, unspecified; I25.10 Atherosclerotic heart disease of native coronary artery without angina pectoris; Z95.5 Presence of coronary angioplasty implant and graft; J44.9 Chronic obstructive pulmonary disease, unspecified; Z99.81 Dependence on supplemental oxygen; E78.5 Hyperlipidemia, unspecified; E11.9 Type 2 diabetes mellitus without complications; Z87.891 Personal history of nicotine dependence; I11.0 Hypertensive heart disease with heart failure; I50.9 Heart failure, unspecified; I25.2 Old myocardial infarction
CPT/HCPCS: 12345; 36415; 93452; C1769; C1887; C1894; G0378; J1644; J2001; J2250; J3010; J3490; Q0163; Q9967

== ENCOUNTER → 2020-04-22 10:47 | Outpatient (BNVA) | payer MEDICARE, SELFPAY | PROVIDERS: PCP Physician Assistant; Visit Provider Nurse Practitioner Family | DX: I25.10 Atherosclerotic heart disease of native coronary artery without angina pectoris (principal) | CPT/HCPCS: 80048 ==

== ENCOUNTER 2020-10-22 14:06 | Inpatient (IN) | payer MEDICARE, SELFPAY ==
[2020-10-22] VITALS (8 sets, daily range): BP systolic 95–118; BP diastolic 57–75; PULSE 88–136; RESP 18–25; TEMP 36.3–37.1; O2SAT 65–98; BMI 19.8
--- NOTE | 2020-10-22 14:25 | XRR_ITS ---
PROCEDURE INFORMATION: Exam: XR Chest, 1 View Exam date and time: 10/22/2020 2:26 PM Age: 80 years old Clinical indication: Chest pain TECHNIQUE: Imaging protocol: XR of the chest Views: 1 view. Total images: 1 COMPARISON: CR XR chest 1V portable [id number] 03/30/2020 5:38 AM FINDINGS: Lungs: Advanced centrilobular emphysema. Extensive and advanced vertically nodular interstitial lung disease with associated interseptal and interlobular thickening stable since 03/30/2020 consistent with pulmonary fibrosis. No visible consolidated alveolar airspace disease. Pleural space: Unremarkable. No pleural effusion. No pneumothorax. Heart/Mediastinum: Cardiac structures and configuration with cardiomegaly and arteriosclerosis. Coronary artery disease. Bones/joints: Unremarkable for age. XR/XR chest 1V portable [id number] IMPRESSION: 1. Nonacute. 2. Advanced centrilobular emphysema with advanced pulmonary fibrosis. 3. Cardiomegaly with coronary artery disease and arteriosclerosis.
--- NOTE | 2020-10-22 14:25 | ECG_ITS ---
[facility] Test Date: 2020-10-22 Pat Name: Germaine Perez Department: Room: Gender: Female It Systems Engineer: : 1940 Requested By: Manoj Merchant Order Number: [id number] Simone MD: Gonzalez Swain M.D. Measurements Intervals [place] Rate: 137 P: -55 ID: [id number] QRS: -42 QRSD: 158 T: 81 QT: 335 QTc: 506 Interpretive Statements SINUS TACHYCARDIA WITH SHORT ID INTERVAL MARKED LEFT AXIS DEVIATION [QRS AXIS < -30] LEFT BUNDLE BRANCH BLOCK [120+ ms QRS DURATION, 80+ ms Q/S IN V1/V2, 85+ ms R IN I/aVL/V5/V6] Compared to ECG 03/30/2020 17:13:20 Short ID interval now present Left-axis deviation now present Sinus rhythm no longer present Electronically Signed On 10-22-2020 16:39:52 SURGICAL PROCESSOR by Gonzalez Swain M.D. [id number] f
[2020-10-22] MEDS: aspirin 81 mg Chew Tablet 324 MG PO (14:41)
--- NOTE | 2020-10-22 14:44 | ED_ITS ---
HPI - Chest Pain General: Chief Complaint: Chest Pain Stated Complaint: CP, DIFFICUTLY BREATHING Time Seen by Provider: 10/22/20 14:25 History of Present Illness: HPI narrative: 80-year-old female presents emergency room complaining of chest pain. She has a history of known coronary disease had previously had 2 different stents placed. Last night around 3 AM while in bed she began having chest pain she took a nitro for her had relief within about 5 minutes. Pain is been intermittent throughout today she notes with any exertion she gets chest discomfort with rest it will get somewhat better she still has some mild discomfort now. Initial EKG shows sinus tachycardia with a left bundle branch block which was present previously on 04/16. Other than rate change EKG does not appear to have changed.Patient has a previous echocardiogram done earlier this year that showed an ejection fraction of 30% MD complaint: chest pain Pertinent past history: coronary artery disease Onset (ago): hour(s) Timing of current episode: episodic and still present Prior episodes: Yes Onset: during rest Pain location: substernal and left chest Severity: moderate Quality: tightness Relieving factors: nitroglycerin Exacerbating factors: exertion Associated symptoms: Deny abdominal pain, diaphoresis, dyspnea, fever(s), leg edema, nausea, palpitations, sense of impending doom, syncope or vomiting Treatment prior to arrival: nitroglycerin Review of Systems Const: Denies: fever(s) or diaphoresis ENMT: Denies: throat pain, ear or mastoid pain, nasal discharge or nasal congestion Card: Reports: chest pain; Denies: palpitations or syncope Resp: Denies: dyspnea GI: Denies: abdominal pain, nausea or vomiting : Denies: flank pain, difficulty voiding, dysuria, urinary frequency or urinary urgency Skin/Breast: Denies: rash or pruritus [facility] ED PFSH: Medical History (Updated 10/22/20 @ 16:53 by Manoj Rand DO) CAD (coronary artery disease) Cardiomyopathy COPD (chronic obstructive pulmonary disease) Chronically on 2 L by nasal cannula History of heart attack Hyperlipemia Increase to high intensity statin Left bundle branch block PVD (peripheral vascular disease) Type 2 diabetes mellitus Surgical History Hx of cardiac cath 2001: Stent placement to RCA July 2012: Stent placement to LAD with noted 60% proximal LCx lesion Hx of heart artery stent Hx of hysterectomy S/P cataract surgery S/P knee surgery S/P trigger finger release Family History Denies family history of Diabetes CAD (coronary artery disease) Clotting disorder Dementia Hyperlipidemia Psychiatric illness Chronic kidney disease (CKD) Suicide Anesthesia complication Bleeding disorder Family history of premature coronary artery disease Lung disease Cancer Hypertension Stroke Social History Smoking and tobacco status: former smoker Alcohol intake: never Current occupational status: retired Physical Exam Const: COMMON NORMALS: no acute distress GENERAL APPEARANCE: cooperative and comfortable ORIENTATION/CONSCIOUSNESS: Yes awake, Yes oriented to person, Yes oriented to place and Yes oriented to time HENMT: COMMON NORMALS: normocephalic, atraumatic and hearing grossly normal bilaterally HEAD & SCALP: normocephalic and atraumatic Neck/C-Spine: COMMON NORMALS: no JVD Resp: COMMON NORMALS: normal respiratory effort, No retractions, No use of accessory muscles and clear to auscultation bilaterally AUSCULTATION: clear to auscultation bilaterally Cardio: COMMON NORMALS: no JVD, regular rate, regular rhythm and No murmurs present (Cardio) RATE: regular rate RHYTHM: regular rhythm GI: COMMON NORMALS: Soft to palpation and No hepatosplenomegaly present AUS CULTATION: Yes normoactive bowel sounds PALPATION: Yes Soft to palpation, No Tenderness to palpation present (GI), No Guarding due to palpation present (GI) and Yes No hepatosplenomegaly present Extremity: COMMON NORMALS: normal to inspection, capillary refill normal, no clubbing, cyanosis or edema, no calf tenderness and no pedal edema Neuro: SENSORIUM/ORIENTATION: Yes oriented to person, Yes oriented to place and Yes oriented to time Skin: COMMON NORMALS: no rashes or lesions noted GENERAL SKIN EXAM: no rashes or lesions noted Course Vital Signs: Vital signs: Vital Signs Temperature 97.3 F L 10/22/20 14:16 Pulse Rate 136 H 10/22/20 16:08 Respiratory Rate 21 H 10/22/20 16:08 Blood Pressure 108/73 10/22/20 16:08 Pulse Oximetry 95 10/22/20 16:08 MDM - Chest Pain MDM Narrative: Medical decision making narrative: Initial troponin slightly elevated. EKG is unchanged from March of this year. Given her onset of symptoms while at rest relieved by nitro will admit her for further rule out and evaluation for her chest pain. Chest x-ray shows interstitial fibrosis there is a little bit increased at the right base some concerned about Covid rapid Covid test is negative we will Dr. Mariano will review see if he wants to PCR. She was little tachycardic when she first arrived to give her a small fluid bolus which did improve her heart rate. Her him was sinus tach. Little bit concerned about large fluid boluses given her ejection fraction was last measured 30% on echo done earlier this year. Discussed Dr. Mariano he will assume care of patient to be placed on CSU.. Lab Data: Labs: Lab Results 10/22/20 10/22/20 10/22/20 Range/Units 14:50 14:50 14:50 WBC 10.6 H (4.0-10.0) 10^3/ uL RBC 4.38 (4.1-5.3) 10^6/u L Hgb 12.9 (11.5-15.3) g/dL Hct 40.7 (37.0-47.0) % MCV 92.9 (81-99) fL MCH 29.5 (28.0-34.0) pg MCHC 31.7 (30.0-36.0) g/dL RDW 14.7 (12.1-15.1) % Plt Count 196 (130-400) 10^3/c mm MPV 11.7 H (7.4-10.4) fL Neut % (Auto) 76.8 % Lymph % (Auto) 14.8 % Bond % (Auto) 7.5 % Eos % (Auto) 0.0 % Baso % (Auto) 0.6 % Neut # (Auto) 8.13 H (1.8-7.7) 10^3/u L Lymph # (Auto) 1.6 (0.8-4.8) 10^3/u L Bond # (Auto) 0.8 (0.2-0.9) 10^3/u L Eos # (Auto) 0.0 (0.0-0.8) 10^3/u L Baso # (Auto) 0.1 (0.0-0.1) 10^3/u L Nucleated RBC % (a uto) 0 % Nucleated RBCs # 0.0 /100WBC Sodium 135 L (136-145) mmol/L Potassium 4.2 (3.5-5.1) mmol/L Chloride 99 (98-107) mmol/L Carbon Dioxide 21 L (22-29) mmol/L Anion Gap 19.2 H (5-19) BUN 15 (8-23) mg/dL Creatinine 0.7 (0.5-0.9) mg/dL GFR Calculation Not Reportable Glucose 188 H (65-115) mg/dL Calculated Osmolal ity 286 (285-295) mOsm/k g Calcium 9.2 (8.5-10.5) mg/dL Total Bilirubin 1.2 (0.15-1.2) mg/dL AST 19 (0-32) U/L ALT 15 (0-33) U/L Alkaline Phosphata se 131 H (35-105) IU/L Troponin T Baselin e 49 H (0-10) ng/L NT-Pro-B Natriuret Pep 25536 H (0-450) pg/mL Total Protein 7.3 (6.6-8.7) g/dL Albumin 4.4 (3.5-5.2) g/dL Globulin 2.9 (1.3-4.6) g/dL SARS-CoV-2 Ag (Rap id) (Negative) 10/22/20 Range/Units 16:00 WBC (4.0-10.0) 10^3/ uL RBC (4.1-5.3) 10^6/u L Hgb (11.5-15.3) g/dL Hct (37.0-47.0) % MCV (81-99) fL MCH (28.0-34.0) pg MCHC (30.0-36.0) g/dL RDW (12.1-15.1) % Plt Count (130-400) 10^3/c mm MPV (7.4-10.4) fL Neut % (Auto) % Lymph % (Auto) % Bond % (Auto) % Eos % (Auto) % Baso % (Auto) % Neut # (Auto) (1.8-7.7) 10^3/u L Lymph # (Auto) (0.8-4.8) 10^3/u L Bond # (Auto) (0.2-0.9) 10^3/u L Eos # (Auto) (0.0-0.8) 10^3/u L Baso # (Auto) (0.0-0.1) 10^3/u L Nucleated RBC % (a uto) % Nucleated RBCs # /100WBC Sodium (136-145) mmol/L Potassium (3.5-5.1) mmol/L Chloride (98-107) mmol/L Carbon Dioxide (22-29) mmol/L Anion Gap (5-19) BUN (8-23) mg/dL Creatinine (0.5-0.9) mg/dL GFR Calculation Glucose (65-115) mg/dL Calculated Osmolal ity (285-295) mOsm/k g Calcium (8.5-10.5) mg/dL Total Bilirubin (0.15-1.2) mg/dL AST (0-32) U/L ALT (0-33) U/L Alkaline Phosphata se (35-105) IU/L Troponin T Baselin e (0-10) ng/L NT-Pro-B Natriuret Pep (0-450) pg/mL Total Protein (6.6-8.7) g/dL Albumin (3.5-5.2) g/dL Globulin (1.3-4.6) g/dL SARS-CoV-2 Ag (Rap id) Negative (Negative) Discharge Plan Discharge Patient Disposition: Placed in Observation Clinical Impression: Unstable angina pectoris, CAD (coronary artery disease), Congestive heart failure, COPD (chronic obstructive pulmonary disease), Type 2 diabetes mellitus, Left bundle branch block Coding Level of Care Code ED Casing Finisher And Stuffer for Dar Fwd Exam Comprehensive
[2020-10-22 15:04] LABS: Basophils # 0.1 10^3/uL (0.0-0.1); Basophils % 0.6 %; Hematocrit 40.7 % (37.0-47.0); Hemoglobin 12.9 g/dL (11.5-15.3); Lymphocytes # 1.6 10^3/uL (0.8-4.8); Lymphocytes % 14.8 %; Mean Corpuscular HGB Conc 31.7 g/dL (30.0-36.0); Mean Corpuscular Hemoglobin 29.5 pg (28.0-34.0); Mean Corpuscular Volume 92.9 fL (81-99); Mean Platelet Volume 11.7 fL (7.4-10.4); Monocytes # 0.8 10^3/uL (0.2-0.9); Monocytes % 7.5 %; Neutrophils # 8.13 10^3/uL (1.8-7.7); Neutrophils % 76.8 %; Nucleated Red Blood Cells % 0 %; Platelet Count 196 10^3/cmm (130-400); Red Blood Count 4.38 10^6/uL (4.1-5.3); Red Cell Distribution Width 14.7 % (12.1-15.1); White Blood Count 10.6 10^3/uL (4.0-10.0)
[2020-10-22 15:39] LABS: Troponin(5th) Baseline 49 ng/L (0-10)
[2020-10-22 15:48] LABS: Alanine Aminotransferase 15 U/L (0-33); Albumin Level 4.4 g/dL (3.5-5.2); Alkaline Phosphatase 131 IU/L (35-105); Anion Gap 19.2 (5-19); Aspartate Amino Transferase 19 U/L (0-32); Blood Urea Nitrogen 15 mg/dL (8-23); Calcium 9.2 mg/dL (8.5-10.5); Carbon Dioxide 21 mmol/L (22-29); Chloride 99 mmol/L (98-107); Globulin 2.9 g/dL (1.3-4.6); Glucose 188 mg/dL (65-115); NT Pro B Type Natriuretic Pept 10547 pg/mL (0-450); Osmolality Calculated 286 mOsm/kg (285-295); Potassium 4.2 mmol/L (3.5-5.1); Sodium 135 mmol/L (136-145); Total Bilirubin 1.2 mg/dL (0.15-1.2); Total Protein 7.3 g/dL (6.6-8.7)
--- NOTE | 2020-10-22 16:25 | ECG_ITS ---
[facility] Test Date: 2020-10-22 Pat Name: Germaine Perez Department: Room: 104 Gender: Female Director Of Web Marketing: : 1940 Requested By: Manoj Merchant Order Number: [id number] Simone MD: Gonzalez Swain M.D. Measurements Intervals [place] Rate: 109 P: 105 OH: 151 QRS: 6 QRSD: 158 T: 236 QT: 390 QTc: 527 Interpretive Statements SINUS TACHYCARDIA LEFT BUNDLE BRANCH BLOCK [120+ ms QRS DURATION, 80+ ms Q/S IN V1/V2, 85+ ms R IN I/aVL/V5/V6] Compared to ECG 10/22/2020 14:19:13 Short [place] interval no longer present Left-axis deviation no longer present Electronically Signed On 10-23-2020 11:04:59 SCHOOL BUS DRIVER/TEACHER ASSISTANT by Gonzalez Swain M.D. [email or web address]/[id number] f
[2020-10-22 16:27] LABS: SARS Covid-2 Antigen Negative (Negative)
[2020-10-22] MEDS: sodium chloride 0.9% 500 ML 999 ML IV (16:46)
[2020-10-22] MEDS: enoxaparin 100 mg/mL Syringe 50 MG SUBCUT (16:47)
[2020-10-22 17:23] LABS: Troponin 5 2HR 76.95 ng/L (0-10)
--- NOTE | 2020-10-22 17:25 | P.HP_ITS ---
Providers/Chief Complaint Primary Care Provider: Karen Meza Chief Complaint: CP, DIFFICUTLY BREATHING History of Present Illness Germaine Perez is a 80 year old female with PMH of HTN,DM, COPD ( 2Ls home oxygen ) A.FIB, CAD SP Stent (RCA and LAD,2001,2011 ) came in with c/o central chest tightness going for the last 5 days as well as fatigue and SOB with occasional non cough. Her chest tightness was real bad last night when she decided to come to hospital. She deny any fever,chills,diaphoresis,dizziness,headache,nausea,vomiting,sick contact. Upon arrival in the ER she was worked up for chest pain. ER Course : Xray chest : Advanced centrilobular emphysema with advanced pulmonary fibrosis. EKG : Sinus tachycardia, left bundle branch block (do not meet garbossa criteria ) Pertinent lab: WBC:10.6, H&H: 12/40, BUN and creatinine: 15/0.7, BNP: 78662, Troponin: Baseline : 49, Rapid Covid antigen testing: negative ECA medication: Aspirin 325 mg p.o. 1 time dose, Nitropaste: 0.5 inch , Lovenox 50 subcu time o nce only, 500 cc of normal saline. Pertinent Prior Studies : . CAG ( 03/2020 ) : LM has 0% stenosis. LAD has 0% stenosis. CX has 0% stenosis. pRCA to mRCA: Mild 30% stenosis . LAD has luminal irregularities with patent previously placed mid segment stent2- LCx has luminal irregularity with without significant stenosis3-RCA has luminal irregularities with patent previously placed stent however there is in-stent restenosis which is recorded at 30%. Stress Test : 03/2020: Medium-sized area of moderate to severe reversibility noted in mid to distal anterior and anteroseptal wall suggestive of ischemia in the LAD territory. Medium-sized area of fixed perfusion defect noted in basal to mid inferior and inferolateral wall suggestive of old myocardial infarction versus scarring. 2D Echo : 03/2020 Mildly increased left ventricular cavity size. Normal left ventricular wall thickness. Severely decreased left ventricular systolic function. Global left ventricular hypokinesis. Left ventricular ejection fraction is estimated at 30 %. Grade II/IV diastolic dysfunction. Review of Systems Const: Denies: fever(s), chills, body aches, change in appetite or diaphoresis Card: Denies: palpitations, edema, swelling of feet/ankles, orthopnea or leg pain with exertion Resp: Denies: wheezing or pain on inspiration GI: Denies: abdominal pain, nausea, vomiting, diarrhea or constipation : Denies: flank pain Musc: Denies: back pain, extremity pain or extremity swelling Neuro: Denies: headache(s), difficulty walking or confusion Medications/Allergies Home Medications Medication Instructions Recorded Confirmed Last Taken Type nitroglycerin 0.4 mg sublingual 0.4 mg SUBLINGUAL Q5M PRN 30 Days 12/31/19 10/22/20 10/22/20 Rx tablet #25 tab Spiriva with HandiHaler 1 cap INHALATION DAILY@03/30/20 10/22/20 10/22/20 History Trulicity 0.75 mg SUBCUT Q7D 03/30/20 10/22/20 10/15/20 History albuterol sulfate 1 inh INHALATION QID PRN 03/30/20 10/22/20 Unknown History Eliquis 5 mg PO BID@04/08/20 10/22/20 10/22/20 History aspirin [Adult Low Dose Aspirin] 81 mg PO BEDTIME@23 04/08/20 10/22/20 10/21/20 History spironolactone 12.5 mg PO DAILY 10/22/20 10/22/20 Unknown History venlafaxine 150 mg PO DAILY@08 10/22/20 10/22/20 10/22/20 History Allergies Allergy/AdvReac Type Severity Reaction Status Date / Time propoxyphene [From Darvon] Allergy Unknown Unknown Verified 10/22/20 14:28 Sulfa (Sulfonamide Allergy Unknown Unknown Verified 10/22/20 14:28 Antibiotics) PFSH Acute PFSH: Medical History (Updated 10/22/20 @ 18:04 by Guanako Mariano MD) CAD (coronary artery disease) Cardiomyopathy COPD (chronic obstructive pulmonary disease) Chronically on 2 L by nasal cannula History of heart attack Hyperlipemia Increase to high intensity statin Left bundle branch block PVD (peripheral vascular disease) Type 2 diabetes mellitus Surgical History Hx of cardiac cath 2001: Stent placement to RCA July 2012: Stent placement to LAD with noted 60% proximal LCx lesion Hx of heart artery stent Hx of hysterectomy S/P cataract surgery S/P knee surgery S/P trigger finger release Family History Denies family history of Diabetes CAD (coronary artery disease) Clotting disorder Dementia Hyperlipidemia Psychiatric illness Chronic kidney disease (CKD) Suicide Anesthesia complication Bleeding disorder Family history of premature coronary artery disease Lung disease Cancer Hypertension Stroke Social History Smoking and tobacco status: former smoker Alcohol intake: never Current occupational status: retired Vitals/I&O/Wt Last Vital Signs Temp 97.3 F L 10/22/20 14:16 Pulse 119 H 10/22/20 16:59 Resp 18 10/22/20 16:59 BP 109/71 10/22/20 16:59 Pulse Ox 94 10/22/20 16:59 Weight last 48 hrs Weight 50.802 kg Physical Exam Const: COMMON NORMALS: patient oriented x3 HENMT: COMMON NORMALS: normocephalic, atraumatic and external ears normal HEAD & SCALP: normocephalic and atraumatic Chest: CHEST: Yes Symmetrical chest wall rise Resp: COMMON NORMALS: normal respiratory effort EFFORT & INSPECTION: Yes symmetric chest movement OTHER: Fine inspiratory basal velcro crackles present in both lung roberts. Cardio: COMMON NORMALS: regular rate, regular rhythm, S1 normal heart sound present, S2 normal heart sound present, No gallops present (Cardio), No murmurs present (Cardio), No rub (Cardio) and Peripheral pulses 2+ throughout RATE: regular rate RHYTHM: regular rhythm HEART SOUNDS: S1 normal heart sound present and S2 normal heart sound present PERIPHERAL PULSES: Peripheral pulses 2+ throughout GI: COMMON NORMALS: Normal to inspection, nondistended, normoactive bowel sounds present, Soft to palpation and non-tender AUSCULTATION: Yes normoa ctive bowel sounds PALPATION: Yes Soft to palpation RECTAL EXAM: deferred Extremity: COMMON NORMALS: no clubbing, cyanosis or edema and no pedal edema Neuro: COMMON NORMALS: patient oriented x3 Data : 10/22/20 14:50 10/22/20 14:50 A&P Assessment and plan (1) Chest pain: Patient has typical cardiac chest pain and with h/o Significant CAD. Will order 2D ECHO,Trend Troponin, Serial EKG Continue Aspirin 81 mg oral daily Eliquis 5 mg q12 h daily Atorvastatin 40 mg oral daily Imdur 30 mg oral daily Sub linugual Nitro as needed Status: Acute (2) Atrial fibrillation: Currently rate controlled. M.T :25MG Q12 H DAILY TELE Status: Acute (3) Type 2 diabetes mellitus: Status: Acute (4) COPD (chronic obstructive pulmonary disease): Status: Acute (5) Congestive heart failure: HFrEF : Currently compensated Status: Acute (6) CAD (coronary artery disease): Status: Acute (7) PVD (peripheral vascular disease): Status: Acute Additional A&P Information DVT PPX: On Eliquis Code status :Full code Disposition :Home Attestations Medical Necessity Statement*: Patient was admitted for evaluation of chest pain.Anticipated length of stay greater then 2 midnights Coding Level of Care Code Acute Railcar Brake Operator for [facility] Fwd Diagnoses Chest pain R07.9 Atrial fibrillation I48.91 Type 2 diabetes mellitus E11.9 COPD (chronic obstructive pulmonary disease) J44.9 Congestive heart failure I50.9 CAD (coronary artery disease) I25.10 PVD (peripheral vascular disease) I73.9
[2020-10-22 17:59] LABS: Troponin 5 2HR Delta 27.95 ABS# (0-10)
[2020-10-22] MEDS: metoprolol tartrate 25 mg Tablet PO (20:12)
--- NOTE | 2020-10-22 20:25 | ECG_ITS ---
[facility] Test Date: 2020-10-22 Pat Name: Germaine Perez Department: Room: 104 Gender: Female Body Hanger: ALFRED ALBERTSB: 1940 Requested By: Manoj Merchant Order Number: [id number] Simone MD: Gonzalez Swain M.D. Measurements Intervals [place] Rate: 120 P: 19 AR: 221 QRS: -5 QRSD: 160 T: 128 QT: 359 QTc: 509 Interpretive Statements SINUS TACHYCARDIA WITH FIRST DEGREE AV BLOCK LEFT BUNDLE BRANCH BLOCK [120+ ms QRS DURATION, 80+ ms Q/S IN V1/V2, 85+ ms R IN I/aVL/V5/V6] Compared to ECG 10/22/2020 19:44:06 First degree AV block now present Electronically Signed On 10-23-2020 11:03:36 ORDNANCE OFFICER by Gonzalez Swain M.D. [email or web address] by Chantilly Lacebolivar medical centerMediQuest Therapeuticsoh[facility].i[employer]arda/store/OM/[id number]/[id number]
[2020-10-22 21:00] LABS: Glucose Point of Care 225 mg/dL (70-110)
--- NOTE | 2020-10-22 22:12 | PC.NURSE ---
Critical Troponin Dr Jerez on the floor. Informed doctor of critical results. Also patient has Lovenox and Eliquis ordered. Received verbal order to discontinue Lovenox. RBVO
[2020-10-23] VITALS (14 sets, daily range): BP systolic 88–108; BP diastolic 53–68; PULSE 83–129; RESP 16–23; TEMP 36.1–37.2; O2SAT 88–95
--- NOTE | 2020-10-23 00:44 | PC.NURSE ---
Patient heart rate had been running from 120s to low 130s. Assisted patient up to BSC. Informed Dr Jerez of heart rate. Doctor in to see patient and he reported back to RN that hear rate was in the 70s. Patient had small, hard BM. Suspect vagal maneuver decreased heart rate. Will continue to monitor.
--- NOTE | 2020-10-23 02:29 | PC.NURSE ---
Noted patient to have 7 beat run of v-tach on telemetry. Informed Dr Jerez and received order to obtain magnesium level now.
[2020-10-23 04:45] LABS: Basophils % 0.4 %; Eosinophils % 0.1 %; Hematocrit 37.8 % (37.0-47.0); Hemoglobin 11.9 g/dL (11.5-15.3); Lymphocytes # 1.7 10^3/uL (0.8-4.8); Lymphocytes % 16.7 %; Mean Corpuscular HGB Conc 31.5 g/dL (30.0-36.0); Mean Corpuscular Hemoglobin 29.2 pg (28.0-34.0); Mean Corpuscular Volume 92.6 fL (81-99); Monocytes # 0.6 10^3/uL (0.2-0.9); Neutrophils # 7.57 10^3/uL (1.8-7.7); Neutrophils % 76.3 %; Nucleated Red Blood Cells % 0 %; Platelet Count 185 10^3/cmm (130-400); Red Blood Count 4.08 10^6/uL (4.1-5.3); Red Cell Distribution Width 14.8 % (12.1-15.1); White Blood Count 9.9 10^3/uL (4.0-10.0)
[2020-10-23 05:04] LABS: Alanine Aminotransferase 23 U/L (0-33); Albumin Level 3.9 g/dL (3.5-5.2); Alkaline Phosphatase 117 IU/L (35-105); Anion Gap 14.3 (5-19); Aspartate Amino Transferase 67 U/L (0-32); Blood Urea Nitrogen 21 mg/dL (8-23); Calcium 8.8 mg/dL (8.5-10.5); Carbon Dioxide 23 mmol/L (22-29); Chloride 108 mmol/L (98-107); Globulin 2.6 g/dL (1.3-4.6); Glucose 168 mg/dL (65-115); Osmolality Calculated 299 mOsm/kg (285-295); Potassium 4.3 mmol/L (3.5-5.1); Sodium 141 mmol/L (136-145); Total Bilirubin 0.9 mg/dL (0.15-1.2); Total Protein 6.5 g/dL (6.6-8.7)
[2020-10-23 05:30] LABS: INR 1.18 (0.8-1.2)
[2020-10-23] MEDS: metoprolol tartrate 25 mg Tablet PO ×2 (06:35→17:58)
[2020-10-23 07:19] LABS: Glucose Point of Care 190 mg/dL (70-110)
[2020-10-23] MEDS: apixaban 5 mg Tablet PO (08:04)
[2020-10-23] MEDS: spironolactone 25 mg Tablet 12.5 MG PO (08:04)
[2020-10-23] MEDS: pantoprazole DR 40 mg Tablet PO (08:04)
[2020-10-23] MEDS: atorvastatin 40 mg Tablet PO (08:04)
[2020-10-23] MEDS: venlafaxine ER (24HR) 150 mg Capsule PO (08:04)
[2020-10-23] MEDS: ipratropium-albuterol 3 mL Neb INHALATION (09:14)
--- NOTE | 2020-10-23 09:32 | PC.NURSE ---
PATIENT'S BLOOD PRESSURE NOTED TO BE CHRONICALLY SOFT (90'S/50'S). PATIENT IS NO LONGER HAVING CHEST PAIN AT THIS TIME. PER DR. RIVERA, CHANGE IMDUR DOSE TO 10MG. WILL CONTINUE TO MONITOR.
[2020-10-23] MEDS: isosorbide mononitrate 20 mg Tablet 10 MG PO (10:22)
[2020-10-23 10:47] LABS: Glucose Point of Care 301 mg/dL (70-110)
[2020-10-23] MEDS: FUROsemide 20 mg Tablet PO (11:21)
--- NOTE | 2020-10-23 13:07 | PM.PN ---
Subjective Subjective: Interval history: Ms. Perez is complaining of SOB, and less sleep at night.She deny chest tightness. Has been saturating well on 3 ls oxygen via [place]. Had one episode of 17 beat runs of Vtach. She has remained afebrile.Urine output has not been documented. Other vitals and labs have been stable. Medications: Reviewed: Yes Vitals/I&O/Wt Last Vital Signs Temp 97.4 F L 10/23/20 12:00 Pulse 129 H 10/23/20 12:00 Resp 18 10/23/20 12:00 BP 96/54 10/23/20 12:00 Pulse Ox 94 10/23/20 12:00 10/22/20 10/23/20 10/23/20 22:59 06:59 14:59 Intake Total 240 / 240 240 / 480 360 / 360 Balance 240 / 240 240 / 480 360 / 360 Weight last 48 hrs Weight 54.476 kg Weight 50.802 kg Physical Exam Const: COMMON NORMALS: patient oriented x3 HENMT: COMMON NORMALS: normocephalic, atraumatic and external ears normal HEAD & SCALP: normocephalic and atraumatic EXTERNAL EAR: Yes external ears normal Chest: COMMONS NORMALS: normal inspection of the chest CHEST: Yes Symmetrical chest wall rise Resp: COMMON NORMALS: normal respiratory effort EFFORT & INSPECTION: Yes symmetric chest movement OTHER: Coarse Breath sound B/L,B/L Crackles in both lung roberts basal,Diminished breath sounds. Cardio: COMMON NORMALS: regular rate, regular rhythm, S1 normal heart sound present, S2 normal heart sound present, No gallops present (Cardio), No murmurs present (Cardio), No rub (Cardio) and Peripheral pulses 2+ throughout RATE: regular rate RHYTHM: regular rhythm HEART SOUNDS: S1 normal heart sound present and S2 normal heart sound present PERIPHERAL PULSES: Peripheral pulses 2+ throughout GI: COMMON NORMALS: Normal to inspection, nondistended, normoactive bowel sounds present, Soft to palpation, non-tender, No hepatosplenomegaly present and no masses AUSCULTATION: Yes normoactive bowel sounds PALPATION: Yes Soft to palpation and Yes No hepatosplenomegaly present RECTAL EXAM: deferred Extremity: COMMON NORMALS: no clubbing, cyanosis or edema and no pedal edema Neuro: COMMON NORMALS: patient oriented x3 Data : 10/23/20 03:55 10/23/20 03:55 A&P Assessment and plan (1) NSTEMI (non-ST elevated myocardial infarction): Has significant troponin delta both at 2 h as well as at 6h. On Lovenox 50 mg sc q12 h daily Aspirin 81 mg oral daily Will load with Plavix 300 mg oral * 1 once and then start her on plavix 75 mg oral daily Atorvastatin 40 mg oral daily IMDUR 10 MG PO DAILY follow 2 D ECHO Cardiology consult. Tele Serial EKG. Status: Acute (2) Chest pain: Patient has typical cardiac chest pain and with h/o Significant CAD. Will order 2D ECHO,Trend Troponin, Serial EKG Continue Aspirin 81 mg oral daily Eliuis Discontinued Atorvastatin 40 mg oral daily Imdur 30 mg oral daily Sub linugual Nitro as needed Status: Acute (3) Atrial fibrillation: Currently rate controlled. M.T :25MG Q12 H DAILY On Eliquis at home. Currently on Hold . TELE Status: Acute (4) Type 2 diabetes mellitus: SSI FSG Status: Acute (5) COPD (chronic obstructive pulmonary disease): Nebs, Solumedrol 30 mg I.V Daily Status: Acute (6) Congestive heart failure: HFrEF : Currently compensated Status: Acute (7) CAD (coronary artery disease): Status: Acute (8) PVD (peripheral vascular disease): Status: Acute Additional A&P Information DVT PPX: On Lovenox Code status :Full code Disposition :Home Likely DC in 2 days. Attestations Medical Necessity Statement*: Patient needs to be in hospital for the management of NSTEMI. Coding Level of Care Code Acute Retail Advertising Executive for g Fwd Diagnoses NSTEMI (non-ST elevated myocardial infarction) I21.4 Chest pain R07.9 Atrial fibrillation I48.91 Type 2 diabetes mellitus E11.9 COPD (chronic obstructive pulmonary disease) J44.9 Congestive heart failure I50.9 CAD (coronary artery disease) I25.10 PVD (peripheral vascular disease) I73.9
--- NOTE | 2020-10-23 14:31 | ECG_ITS ---
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 Measurements Intervals [place] Rate: 84 P: 44 RI: 157 QRS: -13 QRSD: 158 T: 199 QT: 425 QTc: 505 Interpretive Statements SINUS RHYTHM WITH OCCASIONAL VENTRICULAR PREMATURE COMPLEXES LEFT BUNDLE BRANCH BLOCK [120+ ms QRS DURATION, 80+ ms Q/S IN V1/V2, 85+ ms R IN I/aVL/V5/V6] Compared to ECG 10/22/2020 23:06:14 Ventricular premature complex(es) now present Sinus tachycardia no longer present First degree AV block no longer present Electronically Signed On 10-24-2020 17:03:26 SLOT TAG INSERTER by Gonzalez Swain M.D. [id number]
--- NOTE | 2020-10-23 14:50 | PC.NURSE ---
EARLIER THIS SHIFT, PATIENT NOTED TO HAVE A 17 BEAT RUN OF VTACH. PATIENT HAD NO OTHER SYMPTOMS ASSOCIATED. DR. RIVERA NOTIFIED. NO NEW ORDERS. AT THIS TIME, PATIENT NOTED TO HAVE CHEST PAIN 5-6/10 THAT HAD RESOLVED PRIOR TO THE NURSE ENTERING THE ROOM. VITAL SIGNS STABLE, HR 92, O2 95%, BP 90/53. EKG WAS OBTAINED. NOTIFIED DR. RIVERA. ORDERED 1 INCH NITRO PASTE.
[2020-10-23] MEDS: nitroglycerin 1 gm/inch oint Pkt 1 INCH TOPICAL ×2 (15:25→20:26)
[2020-10-23 16:49] LABS: Glucose Point of Care 104 mg/dL (70-110)
--- NOTE | 2020-10-23 17:31 | USCV_ITS ---
Germaine Perez Age: 80 Gender: F : 1940 Exam Date: 10/23/2020 12:58 Ordering Phys: Guanako Mariano MD Technologist: Linda Nagy [place] [facility] [place]: SOB WITH CHEST PAIN BP: 96 / 54 HR: 83 Rhythm: Sinus Technical Quality: Adequate MEASUREMENTS (Male / Female) Normal Values 2D ECHO LV Diastolic Diameter PLAX 4.2 cm 4.2 - 5.9 / 3.9 - 5.3 cm LV Systolic Diameter PLAX 2.8 cm LV Chamber Size 4.3 cm IVS Diastolic Thickness 1.0 cm 0.6 - 1.0 / 0.6 - 0.9 cm IVS Systolic Thickness 1.2 cm LVPW Diastolic Thickness 1.6 cm 0.6 - 1.0 / 0.6 - 0.9 cm LVPW Systolic Thickness 1.5 cm RV Chamber Size 2.8 cm LVOT Diameter 2.0 cm LV Ejection Fraction 2D Teich 41.5 % LV Ejection Fraction MOD 2C 18.2 % LV Ejection Fraction 2C AL 20.5 % LA Diameter 4.0 cm LA Width 3.1 cm LA Height 3.2 cm RA Width 3.6 cm RA Height 3.2 cm M-MODE LV Diastolic Diameter MM 6.0 cm 4.2 - 5.9 / 3.9 - 5.3 cm LV Systolic Diameter MM 4.9 cm LV Ejection Fraction MM Teich 37.8 % IVS Diastolic Thickness MM 1.0 cm 0.6 - 1.0 / 0.6 - 0.9 cm IVS Systolic Thickness MM 1.5 cm LVPW Diastolic Thickness MM 1.3 cm 0.6 - 1.0 / 0.6 - 0.9 cm LVPW Systolic Thickness MM 1.5 cm RV Diastolic Diameter MM 1.7 cm Aortic Annulus Diameter 2.9 cm LA Ao Ratio MM 1.6 MV E Point Septal Separation 1.6 cm DOPPLER AV Peak Velocity 102.0 cm/s LVOT Peak Velocity 42.3 cm/s AV Area Cont Eq vti 1.8 cm squared AV Area Cont Eq pk 1.4 cm squared MV Area PHT 6.9 cm squared Mitral E to A Ratio 1.3 MV E' Velocity 54.0 cm/s Mitral E to MV E' Ratio 18.1 Mitral E to LV E' Lateral Ratio 14.9 Mitral E to LV E' Septal Ratio 23.0 TR Peak Velocity 266.2 cm/s TR Peak Gradient 28.3 mmHg TR Mean Velocity 190.9 cm/s TR Mean Gradient 16.8 mmHg TR Velocity Time Integral 97.6 cm TV Peak E Velocity 73.0 cm/s Right Atrial Pressure 8.0 mmHg Pulmonary Artery Systolic Pressu 36.3 mmHg PV Peak Velocity 60.0 cm/s RV Acceleration Time 0.1 s RV Ejection Time 0.3 s RV AcT/ET 0.3 FINDINGS Left Ventricle Normal left ventricular size. LV systolic function is severely reduced with EF of 20 to 25%. Severe global hypokinesis is noted. Grade 2 diastolic dysfunction is noted. Elevated filling pressures. Right Ventricle The right ventricle is normal in size and function. Right Atrium The right atrium is normal in size. Left Atrium The left atrium is enlarged Mitral Valve Structurally normal mitral valve without significant stenosis or prolapse. There is mild to moderate mitral regurgitation. Aortic Valve Aortic valve is not well-visualized. There is no aortic regurgitation. Tricuspid Valve Structurally normal tricuspid valve without significant stenosis or regurgitation. RVSP is 35 to 40 mmHg. Mild pulmonary hypertension is noted. RA pressure is 5 to 10 mmHg. Pulmonic Valve Not well-visualized. Pericardium Normal pericardium without effusion. Aorta Normal ascending aorta dimension. CONCLUSIONS LV systolic function is severely reduced with EF of 20 to 25%. Severe global hypokinesis is noted. Grade 2 diastolic dysfunction is present. Elevated filling pressures. Left atrium is enlarged. Mild to moderate mitral regurgitation is present. Mild pulmonary hypertension is noted. Compared to prior echo of 03/30/2020, LV systolic function has further reduced to 20 to 25%. Gonzalez Swain MD (Electronically Signed) Final Date: 23 October 2020 16:56 S
[2020-10-23 20:19] LABS: Glucose Point of Care 262 mg/dL (70-110)
[2020-10-23] MEDS: enoxaparin 60 mg/0.6 mL Syringe 50 MG SUBCUT (20:26)
[2020-10-23] MEDS: aspirin 81 mg EC Tablet PO (22:50)
[2020-10-24] VITALS (12 sets, daily range): BP systolic 85–119; BP diastolic 54–77; PULSE 83–130; RESP 14–25; TEMP 36.5–37; O2SAT 94–97
--- NOTE | 2020-10-24 02:45 | PC.NURSE ---
NURSING NOTE: SHIFT SUMMARY: PT ALERT AND ORIENTED X4. MOVES ALL EXTREMITIES AND FOLLOWS ALL COMMANDS. PT DENIES PAIN THIS SHIFT. RESTING QUIETLY WITH EYES CLOSED MAJORITY OF SHIFT. ALL VS AND ASSESSMENTS CHARTED. NO DISTRESS NOTED AT THIS TIME.
[2020-10-24] MEDS: nitroglycerin 1 gm/inch oint Pkt 1 INCH TOPICAL ×4 (03:00→21:10)
[2020-10-24] MEDS: enoxaparin 60 mg/0.6 mL Syringe 50 MG SUBCUT ×2 (07:46→21:10)
[2020-10-24] MEDS: metoprolol tartrate 25 mg Tablet PO ×2 (07:47→21:09)
[2020-10-24] MEDS: venlafaxine ER (24HR) 150 mg Capsule PO (07:47)
--- NOTE | 2020-10-24 08:48 | P.CONIM_ITS ---
Providers/Reason For Consult Consulting Physican/Specialty*: Shawanda White MD/cardiology Reason for Consult*: Patient with coronary artery disease, presenting with chest tightness, shortness of breath and elevated troponin T Attending Physician: Guanako Mariano MD Primary Care Provider: Karen Meza History of Present Illness History of Present Illness Germaine Perez is a 80 year old female with a history of coronary artery disease and cardiomyopathy, is admitted to the hospital through the emergency room where she presented with complaints of chest pain and shortness of breath. This patient apparently has been in her baseline state of health up until the day of admission when she started having chest tightness with shortness of breath. Her symptoms started getting worse. For that reason, she was brought to the emergency room. She was found to have elevated BNP and troponin T. Had 2-hour and 6-hour troponin T had a positive delta. Patient continues to have intermittent episodes of chest tightness while being in the hospital. She has no fever or chills. No significant cough. Her shortness of breath is slowly improving. She denies any abdominal pain or dysuria. No headache or blurring of vision. No other specific complaints. Patient is known to have coronary artery disease and previous PCI. She had a PCI of the right coronary artery in 2001 and the left anterior descending artery [place] [address] Jyoti rosales at this hospital. In March 2020, he was admitted to the hospital with complaints of chest pain and some shortness of breath. The troponin T were positive. Subsequently he had a myocardial perfusion imaging which also was found to be abnormal. The cardiac catheterization revealed patent stented segments of the right coronary artery and the left-anterior descending artery with some minimal in-stent stenosis. Based on the angiogram findings, it was decided to treat him medically. She has been doing okay since then. Couple of weeks ago, she started having chest pain/tightness. She also has this baseline shortness of breath that has been progressively getting worse. She has a heavy smoking abuse history, [id number] history of smoking. She has been taking 3 L of oxygen by nasal cannula at home. Lately her shortness of breath also has been getting worse. She did not have any fever or chills. No significant cough. She is known to have intermittent atrial fibrillation. she has been taking the aspirin and Eliquis. Currently the Eliquis is on hold since hospital admission. She is on aspirin, Plavix and Lovenox. At the time of my examination, patient is generally doing better. She continues to have intermittent chest tightness/heaviness. Also has the baseline shortness of breath with activities. Review of Systems Narrative: CONSTITUTIONAL: No fever or chills. EYES: No blurring of vision or other visual disturbances lately. ENT: No hoarseness of voice, auditory disturbances or sore throat. CARDIOVASCULAR: As mentioned above. RESPIRATORY: Progressive shortness of breath as mentioned above GASTROINTESTINAL: No hematemesis or melena. GENITOURINARY: No dysuria or hematuria. INTEGUMENTARY: No skin rashes or history of skin cancer. NEURO: No transient ischemic attacks or amaurosis. PSYCHIATRIC: No history of psychosis or major depression. HEMATOLOGIC: No bleeding disorders or significant anemia. ENDOCRINE: No history of polyuria or polydipsia. MUSCULOSKELETAL: No recent joint pain or swelling. ALLERGY/IMMUNOLOGY: As mentioned above. Meds/Allergies Home Medications and Allergies Home Medications Medication Instructions Recorded Confirmed Last Taken Type nitroglycerin 0.4 mg sublingual 0.4 mg SUBLINGUAL Q5M PRN 30 Days 12/31/19 10/22/20 10/22/20 Rx tablet #25 tab Spiriva with HandiHaler 1 cap INHALATION DAILY@03/30/20 10/22/20 10/22/20 History Trulicity 0.75 mg SUBCUT Q7D 03/30/20 10/22/20 10/15/20 History albuterol sulfate 1 inh INHALATION QID PRN 03/30/20 10/22/20 Unknown History Eliquis 5 mg PO BID@04/08/20 10/22/20 10/22/20 History aspirin [Adult Low Dose Aspirin] 81 mg PO BEDTIME@04/08/20 10/22/20 10/21/20 History spironolactone 12.5 mg PO DAILY 10/22/20 10/22/20 Unknown History venlafaxine 150 mg PO DAILY@08 10/22/20 10/22/20 10/22/20 History Allergies Allergy/AdvReac Type Severity Reaction Status Date / Time propoxyphene [From Darvon] Allergy Unknown Unknown Verified 10/22/20 14:28 Sulfa (Sulfonamide Allergy Unknown Unknown Verified 10/22/20 14:28 Antibiotics) Current Medications Current Medications Generic Name Dose Route Start Last Admin Trade Name Freq PRN Reason Stop Dose Admin Albuterol/Ipratropium 3 ml 10/22/20 19:21 10/23/20 09:14 Ipratropium-Albuterol 3 Ml Neb INHALATION 3 ml Q6H PRN Administration SHORTNESS OF BREATH Aspirin 81 mg 10/22/20 23:00 10/23/20 22:50 Aspirin 81 Mg Ec Tablet PO 81 mg BEDTIME@23 LIDYA Administration Atorvastatin Calcium 40 mg 10/23/20 09:00 10/23/20 08:04 Atorvastatin 40 Mg Tablet PO 40 mg DAILY LIDYA Administration Enoxaparin Sodium 50 mg 10/23/20 20:00 10/24/20 07:46 Enoxaparin 60 Mg/0.6 Ml Syringe SUBCUT 50 mg Q12H LIDYA Administration Insulin Aspart 0 unit 10/22/20 18:00 10/24/20 07:47 Insulin Aspart 100 Unit/1 Ml SUBCUT 8 unit WM&BEDTIME LIDYA Administration Protocol Isosorbide Mononitrate 10 mg 10/23/20 09:45 10/23/20 10:22 Isosorbide Mononitrate 20 Mg Tablet PO 10 mg DAILY LIDYA Administration Metoprolol Tartrate 25 mg 10/22/20 19:21 10/24/20 07:47 Metoprolol Tartrate 25 Mg Tablet PO 25 mg Q12H LIDYA Administration Nitroglycerin 1 inch 10/23/20 15:15 10/24/20 03:00 Nitroglycerin 1 Gm/Inch Oint Pkt TOPICAL 1 inch Q6H LIDYA Administration Pantoprazole Sodium 40 mg 10/23/20 09:00 10/23/20 08:[address] 40 Mg Tablet PO 40 mg DAILY LIDYA Administration Spironolactone 12.5 mg 10/23/20 09:00 10/23/20 08:04 Spironolactone 25 Mg Tablet PO 12.5 mg DAILY LIDYA Administration Tiotropium [place] 18 mcg 10/23/20 09:00 10/23/20 09:14 Tiotropium 18 Mcg Mdi INHALATION 1 puff DAILY LIDYA Administration Venlafaxine HCl 150 mg 10/23/20 08:00 10/24/20 07:47 Venlafaxine Er (24hr) 150 Mg Capsule PO 150 mg DAILY@08 LIDYA Administration PFSH Acute PFSH: Medical History (Updated 10/25/20 @ 17:16 by Guanako Mariano MD) CAD (coronary artery disease) Cardiomyopathy COPD (chronic obstructive pulmonary disease) History of heart attack Hyperlipemia Increase to high intensity statin Left bundle branch block PVD (peripheral vascular disease) Type 2 diabetes mellitus Surgical History Hx of cardiac cath 2001: Stent placement to RCA July 2012: Stent placement to LAD with noted 60% proximal LCx lesion Hx of heart artery stent Hx of hysterectomy S/P cataract surgery S/P knee surgery S/P trigger finger release Family History Denies family history of Diabetes CAD (coronary artery disease) Clotting disorder Dementia Hyperlipidemia Psychiatric illness Chronic kidney disease (CKD) Suicide Anesthesia complication Bleeding disorder Family history of premature coronary artery disease Lung disease Cancer Hypertension Stroke Social History Smoking and tobacco status: former smoker Alcohol intake: never Current occupational status: retired Vitals/I&O/Wt Last Vital Signs Temp 97.4 F L 10/23/20 16:00 Pulse 94 10/24/20 06:00 Resp 20 H 10/24/20 04:40 BP 119/77 10/24/20 04:40 Pulse Ox 95 10/23/20 18:41 10/23/20 10/24/20 10/24/20 22:59 06:59 14:59 Intake Total 120 / 600 Output Total 400 / 400 550 / 950 Balance -280 / 200 -550 / -350 Weight last 48 hrs Weight 131 lb 1 oz Weight 120 lb 1.6 oz Weight 112 lb Physical Exam Narrative: EXAM NARRATIVE: GENERAL: The patient is alert and oriented times three. Not in any acute distress. Slightly tachypneic HEENT: No significant pallor, icterus or lymphadenopathy. The pupils are reactant to light. Oral cavity: There are no mucous membrane lesions. Funduscopic examination: The fundus is not visualized NECK: Trachea appears to be central. No masses noted. No JVD or thyromegaly appreciated. No carotid bruit. RESPIRATORY: Chest is symmetrical. No intercostals muscle retraction or any accessory muscle activation. There is no chest wall tenderness. Breath sounds are heard bilaterally. Few fine rales at the bases no evidence of any consolidation. BREASTS: Deferred. HEART: The PMI is in the 5th left intercostals space just inside the midclavicular line. No palpable precordial events. T the first and the second heart sounds are normal.. Soft S3 with no S4. No pericardial rub or any click heard. ABDOMEN: No vessel pulsations or distention. No tenderness. No organomegaly appreciated. No abdominal bruit. Bowel sounds are normally heard. : Deferred. RECTAL: Deferred. LYMPHATIC: No lymphadenopathy noted in the neck or groin. EXTREMITIES: No edema or cyanosis. No clubbing. The pulses are symmetrical bilaterally. The radial, femoral, dorsalis pedis and the posterior tibial pulses are palpated and was found to be in low volume and amplitude. MUSCULOSKELETAL: Gait is normal. There is no joint deformity or swelling noted. No joint tenderness or any effusion. The shoulder and hip joints appear to have normal range of motion. SKIN: There are no significant scars or skin rash noted. NEUROPSYCHIATRIC: The patient is alert and oriented x3. Appears to be in a good mood. The higher functions are grossly within normal limits. No tremors or rigidity noted. Data Labs: Other Labs: Laboratory Last Values WBC 9.9 10^3/uL (4.0- 10.0) 10/23/20 03:55 RBC 4.08 10^6/uL (4.1 -5.3) L 10/23/20 03:55 Hgb 11.9 g/dL (11.5-1 5.3) 10/23/20 03:55 Hct 37.8 % (37.0-47.0 ) 10/23/20 03:55 MCV 92.6 fL (81-99) 10/23/20 03:55 MCH 29.2 pg (28.0-34. 0) 10/23/20 03:55 MCHC 31.5 g/dL (30.0-3 6.0) 10/23/20 03:55 RDW 14.8 % (12.1-15.1 ) 10/23/20 03:55 Plt Count 185 10^3/cmm (130 -400) 10/23/20 03:55 MPV 12.0 fL (7.4-10.4 ) H 10/23/20 03:55 Neut % (Auto) 76.3 % 10/23/20 03:55 Lymph % (Auto) 16.7 % 10/23/20 03:55 Kaufman % (Auto) 6.0 % 10/23/20 03:55 Eos % (Auto) 0.1 % 10/23/20 03:55 Baso % (Auto) 0.4 % 10/23/20 03:55 Neut # (Auto) 7.57 10^3/uL (1.8 -7.7) 10/23/20 03:55 Lymph # (Auto) 1.7 10^3/uL (0.8- 4.8) 10/23/20 03:55 [place]aufman # (Auto) 0.6 10^3/uL (0.2- 0.9) 10/23/20 03:55 Eos # (Auto) 0.0 10^3/uL (0.0- 0.8) 10/23/20 03:55 Baso # (Auto) 0.0 10^3/uL (0.0- 0.1) 10/23/20 03:55 Nucleated RBC % (a uto) 0 % 10/23/20 03:55 Nucleated RBCs # 0.0 /100WBC 10/23/20 03:55 PT 15.40 SECONDS (12 .1-14.9) H 10/23/20 03:55 INR 1.18 (0.8-1.2) 10/23/20 03:55 Sodium 141 mmol/L (136-1 45) 10/23/20 03:55 Potassium 4.3 mmol/L (3.5-5 .1) 10/23/20 03:55 Chloride 108 mmol/L (98-10 7) H 10/23/20 03:55 Carbon Dioxide 23 mmol/L (22-29) 10/23/20 03:55 Anion Gap 14.3 (5-19) 10/23/20 03:55 BUN 21 mg/dL (8-23) 10/23/20 03:55 Creatinine 0.9 mg/dL (0.5-0. 9) 10/23/20 03:55 GFR Calculation Not Reportable 10/23/20 03:55 Glucose 168 mg/dL (65-115 ) H 10/23/20 03:55 POC Glucose 262 mg/dL (70-110 ) H 10/23/20 20:14 Calculated Osmolal ity 299 mOsm/kg (285- 295) H 10/23/20 03:55 Calcium 8.8 mg/dL (8.5-10 .5) 10/23/20 03:55 Magnesium 2.0 mg/dL (1.7-2. 3) 10/23/20 03:55 Total Bilirubin 0.9 mg/dL (0.15-1 .2) 10/23/20 03:55 AST 67 U/L (0-32) H 10/23/20 03:55 ALT 23 U/L (0-33) 10/23/20 03:55 Alkaline Phosphata se 117 IU/L (35-105) H 10/23/20 03:55 Troponin T Baselin e 49 ng/L (0-10) H 10/22/20 14:50 Troponin T 120 Min [place] 76.95 ng/L (0-10) H 10/22/20 16:53 Delta Troponin T 27.95 ABS# (0-10) H* 10/22/20 16:53 Troponin T Hi Sens 6Hr 207.0 ng/L (0-10) H 10/22/20 20:49 Troponin T Hi Sens 6Hr Delta 158.0 ng/L (0-12) H* 10/22/20 20:49 NT-Pro-B Natriuret Pep 10095 pg/mL (0-45 0) H 10/22/20 14:50 Total Protein 6.5 g/dL (6.6-8.7 ) L 10/23/20 03:55 Albumin 3.9 g/dL (3.5-5.2 ) 10/23/20 03:55 Globulin 2.6 g/dL (1.3-4.6 ) 10/23/20 03:55 SARS-CoV-2 Ag (Rap id) Negative (Negati ve) 10/22/20 16:00 Imaging^: Cardiac catheterization: My impression: Cardiac utilization on 04/19/2020 revealed the following findings Mild left ventricular systolic dysfunction. Ejection fraction of 45%. 1-Normal left main2-LAD has luminal irregularities with patent previously placed mid segment stent2-LCx has luminal irregularity with without significant stenosis3-RCA has luminal irregularities with patent previously placed stent however there is in-stent restenosis which is recorded at 30%. Indication for left heart cath: Abnormal stress test, left ventricle dysfunction. Ejection Fraction: 45.0 % Echo: My impression: Echocardiogram on 10/22/2020 reported as LV systolic function is severely reduced with EF of 20 to 25%. Severe global hypokinesis is noted. Grade 2 diastolic dysfunction is present. Elevated filling pressures. Left atrium is enlarged. Mild to moderate mitral regurgitation is present. Mild pulmonary hypertension is noted. Compared to prior echo of 03/30/2020, LV systolic function has further reduced to 20 to 25%. CXR: Radiologist's impression: 1. Nonacute. 2. Advanced centrilobular emphysema with advanced pulmonary fibrosis. 3. Cardiomegaly with coronary artery disease and arteriosclerosis. EKG^: EKG 1: My Interpretation: EKG showed a sinus rhythm with a left bundle branch block. Occasional PVCs. Heart rate of 84 bpm A&P Assessment and plan (1) NSTEMI (non-ST elevated myocardial infarction): Elevated troponin T may suggest non-ST elevation myocardial infarction. However in view of her severe LV systolic dysfunction, atrial fibrillation and frequent ventricular arrhythmia, a type II myocardial infarction also is a consideration. She is currently fairly stable. Her ongoing intermittent episodes of chest tightness is a concern. The drop in the LV is ejection fraction by echocardiogram may suggest an acute coronary event. Patient may benefit from evaluation. Status: Acute (2) Cardiomyopathy: Had the echocardiographic ejection fraction of around 30% in March. Subsequent cardiac catheterization revealed ejection fraction around 45%. This time the echocardiogram revealed ejection fraction around 25%. I will be reviewing the echocardiogram. If indeed she had a significant drop in the LV ejection fraction, a repeat cardiac catheterization would be appropriate to further evaluate. In the meanwhile, patient may continue on the current medications. Status: Acute Qualifiers: Cardiomyopathy type: unspecified Qualified Code(s): I42.9 - Cardiomyopathy, unspecified (3) Type 2 diabetes mellitus: There are diabetes need to be aggressively treated. Status: Acute Qualifiers: Diabetes mellitus complication status: without complication Diabetes mellitus nursing home insulin use: without nursing home use Qualified Code(s): E11.9 - Type 2 diabetes mellitus without complications (4) COPD (chronic obstructive pulmonary disease): Management of the COPD exacerbation, as per the primary. Status: Acute Qualifiers: COPD type: COPD with acute exacerbation Qualified Code(s): J44.1 - Chronic obstructive pulmonary disease with (acute) exacerbation (5) Hyperlipemia: May continue on the current medications. Patient seems to be tolerating the medication so far well. Status: Acute Qualifiers: Hyperlipidemia type: mixed hyperlipidemia Qualified Code(s): E78.2 - Mixed hyperlipidemia Additional A&P Information After reviewing the results of the above and also based on the patient's clinical progress, further recommendations will be made. Thank you for the opportunity to evaluate this patient make these recommendations I reviewed the echocardiogram from March of this year and the one done during this admission. I do not see a significant change in the echocardiographic findings. Most likely the patient's symptoms are related to the cardiomyopathy and the arrhythmia. Apparently she had more chest pain during the last hospital admission. In view of her low blood pressure, the medication options for the treatment of heart failure are limited. We will try to optimize the medical treatment. She may benefit from a LifeVest. I also will be discussing with the patient's family about her current condition, treatment options and prognosis. Thank you for the opportunity to eval this patient make these recommendations Consult Attestations Medical Necessity Statement: Patient requires continued hospital stay for close monitoring and further management Coding Level of Care Code Acute [place] Feeder for Chg Fwd History Comprehensive Exam Comprehensive Medical Decision Making High Complexity Diagnoses NSTEMI (non-ST elevated myocardial infarction) I21.4 Cardiomyopathy I42.9 Cardiomyopathy type: unspecified Type 2 diabetes mellitus E11.9 Diabetes mellitus complication status: without complication Diabetes mellitus nursing home insulin use: without intermediate school teacher use COPD (chronic obstructive pulmonary disease) J44.1 COPD type: COPD with acute exacerbation Hyperlipemia E78.2 Hyperlipidemia type: mixed hyperlipidemia Time Spent (min) 65
[2020-10-24] MEDS: FUROsemide 10 mg/mL SDV 4mL 40 MG IVP (08:50)
[2020-10-24] MEDS: pantoprazole DR 40 mg Tablet PO (08:51)
[2020-10-24] MEDS: spironolactone 25 mg Tablet 12.5 MG PO (08:51)
[2020-10-24] MEDS: isosorbide mononitrate 20 mg Tablet 10 MG PO (08:51)
[2020-10-24] MEDS: atorvastatin 40 mg Tablet PO (08:51)
[2020-10-24 10:16] LABS: Basophils % 0.2 %; Hematocrit 35.3 % (37.0-47.0); Hemoglobin 11.3 g/dL (11.5-15.3); Lymphocytes % 22.3 %; Mean Corpuscular Hemoglobin 29.5 pg (28.0-34.0); Mean Corpuscular Volume 92.2 fL (81-99); Mean Platelet Volume 12.2 fL (7.4-10.4); Monocytes # 0.8 10^3/uL (0.2-0.9); Monocytes % 8.2 %; Neutrophils # 6.27 10^3/uL (1.8-7.7); Nucleated Red Blood Cells % 0 %; Platelet Count 197 10^3/cmm (130-400); Red Blood Count 3.83 10^6/uL (4.1-5.3); White Blood Count 9.1 10^3/uL (4.0-10.0)
[2020-10-24 10:41] LABS: Alanine Aminotransferase 26 U/L (0-33); Alkaline Phosphatase 110 IU/L (35-105); Anion Gap 16.7 (5-19); Aspartate Amino Transferase 44 U/L (0-32); Blood Urea Nitrogen 27 mg/dL (8-23); Calcium 8.9 mg/dL (8.5-10.5); Carbon Dioxide 23 mmol/L (22-29); Chloride 107 mmol/L (98-107); Globulin 2.6 g/dL (1.3-4.6); Glucose 119 mg/dL (65-115); Magnesium 2.1 mg/dL (1.7-2.3); Osmolality Calculated 302 mOsm/kg (285-295); Potassium 3.7 mmol/L (3.5-5.1); Sodium 143 mmol/L (136-145); Total Bilirubin 0.6 mg/dL (0.15-1.2); Total Protein 6.6 g/dL (6.6-8.7)
[2020-10-24 11:35] LABS: Glucose Point of Care 145 mg/dL (70-110)
--- NOTE | 2020-10-24 15:21 | P.PN_ITS ---
Subjective Subjective: Interval history: Ms. Perez is predominantly complaining of shortness of breath, and occasional chest tightness. Vitals and labs have been reviewed. Cardiology has been consulted. Medications: Reviewed: Yes Vitals/I&O/Wt Last Vital Signs Temp 98.1 F 10/24/20 14:11 Pulse 86 10/24/20 14:11 Resp 25 H 10/24/20 14:11 BP 85/54 10/24/20 14:11 Pulse Ox 97 10/24/20 09:14 10/24/20 10/24/20 10/24/20 06:59 14:59 22:59 Intake Total 120 / 120 Output Total 550 / 950 Balance -550 / -350 120 / 120 Weight last 48 hrs Weight 59.449 kg Weight 54.476 kg Physical Exam Const: COMMON NORMALS: patient oriented x3 HENMT: COMMON NORMALS: normocephalic and atraumatic HEAD & SCALP: normoce phalic and atraumatic Chest: COMMONS NORMALS: normal inspection of the chest CHEST: Yes Symmetr ical chest wall rise Resp: OTHER: B/L Crackles in both lung roberts basal,Diminished breath sounds. Cardio: COMMON NORMALS: regular rate, regular rhythm, S1 normal heart sound present, S2 normal heart sound present, No gallops present (Cardio) and Peripheral pulses 2+ throughout RATE: regular rate RHYTHM: regular rhythm HEART SOUNDS: S1 normal heart sound present and S2 normal heart sound present PERIPHERAL PULSES: Peripheral pulses 2+ throughout GI: COMMON NORMALS: Normal to inspection, nondistended, normoactive bowel sounds present, Soft to palpation, non-tender, No hepatosplenomegaly present and no masses AUSCULTATION: Yes normoactive bowel sounds PALPATION: Yes Soft to palpation and Yes No hepatosplenomegaly present RECTAL EXAM: deferred Extremity: COMMON NORMALS: no clubbing, cyanosis or edema and no pedal edema Neuro: COMMON NORMALS: patient oriented x3 Data : 10/24/20 09:24 10/24/20 09:24 A&P Assessment and plan (1) NSTEMI (non-ST elevated myocardial infarction): Type I versus type II FL: Has significant troponin delta both at 2 h as well as at 6h. On Lovenox 50 mg sc q12 h daily Aspirin 81 mg oral daily Will load with Plavix 300 mg oral * 1 once and then start her on plavix 75 mg oral daily Atorvastatin 40 mg oral daily IMDUR 10 MG PO DAILY 2 D ECHO : LVEF: Severely depressed , (20 to 25% ) . Severe global hypokinesia , grade 2 diastolic dysfunction, mild PAH. Per cardiology: Elevated troponin T may suggest non-ST elevation myocardial infarction. However in view of her severe LV systolic dysfunction, atrial fibrillation and frequent ventricular arrhythmia, a type II myocardial infarction also is a consideration. Her ongoing intermittent episodes of chest tightness is a concern. The drop in the LV is ejection fraction by echocardiogram may suggest an acute coronary event. Patient may benefit from evaluation. Cardiology will decide whether the patient needs a CAG upon more review. Status: Acute (2) Atrial fibrillation: Currently rate controlled. M.T :25MG Q12 H DAILY On Eliquis at home. Currently on Hold . TELE Status: Acute (3) Type 2 diabetes mellitus: SSI FSG Status: Acute Qualifiers: Diabetes mellitus complication status: without complication Diabetes mellitus [facility] use: without [facility] use Qualified Code(s): E11.9 - Type 2 diabetes mellitus without complications (4) COPD (chronic obstructive pulmonary disease): Nebs, Solumedrol 30 mg I.V Daily Status: Acute Qualifiers: COPD type: COPD with acute exacerbation Qualified Code(s): J44.1 - Chronic obstructive pulmonary disease with (acute) exacerbation (5) Congestive heart failure: HFrEF : Continue Lasix 40 mg I.V Daily. I/O Daily weight Status: Acute (6) CAD (coronary artery disease): Status: Acute (7) PVD (peripheral vascular disease): Status: Acute Additional A&P Information DVT PPX: On Lovenox Code status :Full code Disposition :Home Likely DC in 2 days. Attestations Medical Necessity Statement*: Patient needs to be in hospital for the ma nagement of Type I V/S Type II M.I Coding Level of Care Code Acute Correspondence Renew Clerk for g Fwd Diagnoses NSTEMI (non-ST elevated myocardial infarction) I21.4 Atrial fibrillation I48.91 Type 2 diabetes mellitus E11.9 Diabetes mellitus complication status: without complication Diabetes mellitus intermediate school teacher insulin use: without intermediate school teacher use COPD (chronic obstructive pulmonary disease) J44.1 COPD type: COPD with acute exacerbation Congestive heart failure I50.9 CAD (coronary artery disease) I25.10 PVD (peripheral vascular disease) I73.9
--- NOTE | 2020-10-24 16:25 | PC.RESP ---
Pulmonary Rehab information sent to patient.
[2020-10-24 17:20] LABS: Glucose Point of Care 344 mg/dL (70-110)
--- NOTE | 2020-10-24 19:12 | PC.NURSE ---
patient had an unevenful shift. up to use the bedside commode multiple times today. no complaints today. patient resting in bed at this time. no needs identified at this time.
--- NOTE | 2020-10-24 19:46 | PC.NURSE ---
Patient Daughter Christina Reyes continues to call the nurses station trying to get information about patients condition and care, this nurse listened to daughters concerns this am with out giving any information about the patient. This nurse spoke with Dr Mariano about daughter calling and wanting informations that I could not give. Upon speaking with patient a bit more patient dose not want information disclosed to this daughter only persons listed on PHI, informal consent was obtained by another nurse via patients word according to Christina daughter however patient has changed her mind and only wants persons on phi spoken to about her care. patient is alert oriented and comprehends information.
[2020-10-24 20:47] LABS: Glucose Point of Care 343 mg/dL (70-110)
--- NOTE | 2020-10-24 20:57 | PC.NURSE ---
Daughter, Christina, called stating I'm an ED nurse in [place]. She stated she was very upset that it took them so long to start her mom on Lasix and that she was very upset the doctor hasn't called to update her on her mom. She states she doesn't understand why a pulmonoligist isn't seeing her mom for her new diagnosis of pulmonary fibrosis. She states that her primary care provider is the one who told her it was a new diagnosis. She states she has tried multiple times to get an update from the doctor and has talked to several different nurses stating her concerns. She states I guess we are just waiting, I don't know what is taking so long to get things done. I know you guys have multiple patients, but I only have one mom.
[2020-10-24] MEDS: clopidogrel 75 mg Tablet PO (21:09)
--- NOTE | 2020-10-24 23:18 | PC.NURSE ---
Dr. Jerez notified of patient's heart rate being 90 all night and has now went up to 130s and is maintaining. Patient is asymptomatic and it appears to be ST on the monitor.
--- NOTE | 2020-10-24 23:23 | ECG_ITS ---
[facility] Test Date: 2020-10-24 Pat Name: Gremaine Perez Department: Room: 111 Gender: Female Clinical Data Assistant: SHEREEN ALBERTSB: 1940 Requested By: Sanjeev White Order Number: [id number] Simone MD: Sanjeev White M.D. Measurements Intervals [place] Rate: 129 P: -6 ID: [id number] QRS: -18 QRSD: 166 T: 265 QT: 351 QTc: 514 Interpretive Statements Possible atrial flutter with a fixed AV block LEFT BUNDLE BRANCH BLOCK [120+ ms QRS DURATION, 80+ ms Q/S IN V1/V2, 85+ ms R IN I/aVL/V5/V6] Compared to ECG 10/23/2020 14:38:39 Sinus rhythm no longer present Ventricular premature complex(es) no longer present Electronically Signed On 10-25-2020 23:45:22 COMMERCIAL GREEN BUILDING DESIGNER by Sanjeev White M.D. [id number]
--- NOTE | 2020-10-24 23:43 | PC.NURSE ---
Dr. White notified of increase in heart rate. Ordered to get EKG and give 250 mcg Digoxin x1 IV.
[2020-10-25] VITALS (11 sets, daily range): BP systolic 97–125; BP diastolic 45–73; PULSE 69–98; RESP 16–23; TEMP 36.4–36.8; O2SAT 91–100
[2020-10-25] MEDS: aspirin 81 mg EC Tablet PO ×2 (00:05→22:50)
[2020-10-25] MEDS: digoxin 250 mcg/ml INJ 2 mL IVP (00:05)
--- NOTE | 2020-10-25 01:01 | PC.NURSE ---
Patient's heart rate is now back down to 80s to 90s.
[2020-10-25] MEDS: nitroglycerin 1 gm/inch oint Pkt 1 INCH TOPICAL ×3 (03:49→21:20)
[2020-10-25 04:21] LABS: D Dimer 0.31 ug/mIFEU (0-0.59)
[2020-10-25 06:36] LABS: Glucose Point of Care 232 mg/dL (70-110)
[2020-10-25] MEDS: enoxaparin 60 mg/0.6 mL Syringe 50 MG SUBCUT ×2 (08:00→19:52)
[2020-10-25] MEDS: clopidogrel 75 mg Tablet PO (08:01)
[2020-10-25] MEDS: metoprolol tartrate 25 mg Tablet PO ×2 (08:02→19:51)
[2020-10-25] MEDS: spironolactone 25 mg Tablet 12.5 MG PO (08:02)
[2020-10-25] MEDS: atorvastatin 40 mg Tablet PO (08:03)
[2020-10-25] MEDS: venlafaxine ER (24HR) 150 mg Capsule PO (08:03)
[2020-10-25] MEDS: pantoprazole DR 40 mg Tablet PO (08:03)
[2020-10-25] MEDS: isosorbide mononitrate 20 mg Tablet 10 MG PO (08:03)
[2020-10-25] MEDS: FUROsemide 10 mg/mL SDV 4mL 40 MG IVP ×2 (08:04→11:21)
--- NOTE | 2020-10-25 10:00 | PC.NURSE ---
Patient reports chest pressure and tightness to medial chest, rated 4/10, radiates to right jaw. VS obtained, WNL. Dr. White notified. Verbal order to place the scheduled nitro paste and reassess. RBVO. Nurse to continue to monitor.
[2020-10-25 10:01] LABS: Alanine Aminotransferase 29 U/L (0-33); Albumin Level 3.8 g/dL (3.5-5.2); Alkaline Phosphatase 120 IU/L (35-105); Anion Gap 16.5 (5-19); Aspartate Amino Transferase 34 U/L (0-32); Blood Urea Nitrogen 38 mg/dL (8-23); Calcium 8.7 mg/dL (8.5-10.5); Carbon Dioxide 20 mmol/L (22-29); Chloride 104 mmol/L (98-107); Globulin 2.7 g/dL (1.3-4.6); Glucose 217 mg/dL (65-115); Osmolality Calculated 298 mOsm/kg (285-295); Potassium 4.5 mmol/L (3.5-5.1); Sodium 136 mmol/L (136-145); Total Bilirubin 0.5 mg/dL (0.15-1.2); Total Protein 6.5 g/dL (6.6-8.7)
[2020-10-25 10:02] LABS: Basophils % 0.1 %; Hematocrit 36.2 % (37.0-47.0); Hemoglobin 11.4 g/dL (11.5-15.3); Lymphocytes # 1.1 10^3/uL (0.8-4.8); Lymphocytes % 11.5 %; Mean Corpuscular HGB Conc 31.5 g/dL (30.0-36.0); Mean Corpuscular Hemoglobin 29.4 pg (28.0-34.0); Mean Corpuscular Volume 93.3 fL (81-99); Monocytes # 0.3 10^3/uL (0.2-0.9); Monocytes % 3.5 %; Neutrophils # 7.97 10^3/uL (1.8-7.7); Neutrophils % 84.5 %; Nucleated Red Blood Cells % 0 %; Platelet Count 192 10^3/cmm (130-400); Red Blood Count 3.88 10^6/uL (4.1-5.3); Red Cell Distribution Width 15.3 % (12.1-15.1); White Blood Count 9.4 10^3/uL (4.0-10.0)
[2020-10-25 11:16] LABS: Glucose Point of Care 443 mg/dL (70-110)
--- NOTE | 2020-10-25 13:36 | PC.SOCIAL ---
Pg 2 IMM Explained to pt Pg 2 IMM. No questions voiced. Provided pt a copy Signed, dated, & timed a copy & placed in chart.
[2020-10-25] MEDS: lanolin oint 7 gm 1 APPLIC TOPICAL (14:58)
[2020-10-25] MEDS: ipratropium-albuterol 3 mL Neb INHALATION ×2 (15:32→20:39)
--- NOTE | 2020-10-25 15:41 | PC.NURSE ---
Dr. White updated on patient condition. BP 97/54 HR 74. Patient denies CP at this time. Telephone order to hold nitro paste at this time. RBTO. Nurse to continue to monitor.
[2020-10-25 16:18] LABS: Glucose Point of Care 279 mg/dL (70-110)
--- NOTE | 2020-10-25 16:23 | PC.NURSE ---
Dr. White notified that patient went into a fib RVR with HR 120-130s. Patient assessed, reports palpitations. BP 106/50. Patient self converted back to NSR, HR 77. Telephone order received to start patient on 400 mg Amiodarone BID, first dose now. RBTO. Nurse to continue to monitor.
--- NOTE | 2020-10-25 16:28 | PC.NURSE ---
Dr. Mariano notified of hyperglycemia with ss insulin coverage. Telephone order to increase patient to moderate ss coverage, RBTO.
--- NOTE | 2020-10-25 16:58 | PM.PN ---
Subjective Subjective: Interval history: is complaining of more SOB then chest tightness.According to her she is SOB with minimal exertion. Her other vitals and labs have been reviewed. Medications: Reviewed: Yes Vitals/I&O/Wt Last Vital Signs Temp 97.8 F 10/25/20 15:39 Pulse 76 10/25/20 15:39 Resp 18 10/25/20 15:39 BP 97/54 10/25/20 15:39 Pulse Ox 100 10/25/20 15:39 10/25/20 10/25/20 10/25/20 06:59 14:59 22:59 Intake Total 400 / 1000 480 / 480 Balance 400 / 1000 480 / 480 Weight last 48 hrs Weight 58.287 kg Weight 59.449 kg Physical Exam Const: COMMON NORMALS: patient oriented x3 HENMT: COMMON NORMALS: normocephalic and atraumatic HEAD & SCALP: normocephalic and atraumatic Chest: CHEST: Yes Symmetrical chest wall rise Resp: EFFORT & INSPECTION: Yes symmetric chest movement OTHER: B/L Basal Crackles Predominant on the lt lower lung roberts. Diminished air entry b/l . No wheezing, no ronchii. Cardio: COMMON NORMALS: regular rate, regular rhythm, S1 normal heart sound present, S2 normal heart sound present, No gallops present (Cardio), No murmurs present (Cardio), No rub (Cardio) and Peripheral pulses 2+ throughout RATE: regular rate RHYTHM: regular rhythm HEART SOUNDS: S1 normal heart sound present and S2 normal heart sound present PERIPHERAL PULSES: Peripheral pulses 2+ throughout GI: COMMON NORMALS: Normal to inspection, nondistended, normoactive bowel sounds present, Soft to palpation, non-tender, No hepatosplenomegaly present and no masses AUSCULTATION: Yes normoactive bowel sounds PALPATION: Yes Soft to palpation and Yes No hepatosplenomegaly present RECTAL EXAM: deferred Extremity: COMMON NORMALS: no clubbing, cyanosis or edema and no pedal edema Neuro: COMMON NORMALS: patient oriented x3 Data : 10/25/20 02:40 10/25/20 02:40 A&P Assessment and plan (1) NSTEMI (non-ST elevated myocardial infarction): Type I versus type II MS: Had significant troponin delta both at 2 h as well as at 6h. 2 D ECHO : LVEF: Severely depressed , (20 to 25% ) . Severe global hypokinesia , grade 2 diastolic dysfunction, mild PAH. Lovenox 50 mg sc q12 h daily Aspirin 81 mg oral daily plavix 75 mg oral daily Atorvastatin 40 mg oral daily IMDUR 10 MG PO DAILY Nitro paste 1 inch q6h daily Per cardiology: Elevated troponin T may suggest non-ST elevation myocardial infarction. However in view of her severe LV systolic dysfunction, atrial fibrillation and frequent ventricular arrhythmia, a type II myocardial infarction is also a consideration. Her ongoing intermittent episodes of chest tightness is a concern. The drop in the LV is ejection fraction by echocardiogram may suggest an acute coronary event. Patient may benefit from evaluation. Cardiology will decide whether the patient needs a CAG upon more review. Status: Acute (2) Atrial fibrillation: On amidarone 400 mg PO BID Metoprolol tartrate 25 mg p.o. every 12 Received loading dose of Digoxin 250 mcg I.V on 10/25 On Eliquis at home. Currently on Hold . TELE Status: Acute (3) Type 2 diabetes mellitus: MDS FSG Status: Acute Qualifiers: Diabetes mellitus complication status: without complication Diabetes mellitus termite treater helper insulin use: without [place] [facility] use Qualified Code(s): E11.9 - Type 2 diabetes mellitus without complications (4) COPD (chronic obstructive pulmonary disease): Nebs Solumedrol 40 mg I.V Daily. Spirivia 18 mcg inhalation daily Trelegy Inhaler on DC Pulmonary rehab on discharge Appreciate pulmonary recs Status: Acute Qualifiers: COPD type: COPD with acute exacerbation Qualified Code(s): J44.1 - Chronic obstructive pulmonary disease with (acute) exacerbation (5) Congestive heart failure: Acute on chronic decompensated HFrEF : Continue Lasix 40 mg I.V Daily. Spironolactone 12.5 mg p.o. I/O Daily weight Status: Acute (6) CAD (coronary artery disease): Status: Acute (7) PVD (peripheral vascular disease): Status: Acute Additional A&P Information DVT PPX: On Lovenox Code status :Full code Disposition :Home Attestations Medical Necessity Statement*: Patient needs to be in hospital for evaluation and management of chest pain and shortness of breath. Coding Level of Care Code Acute Machine Setter And Repairer for [facility] Fw Diagnoses NSTEMI (non-ST elevated myocardial infarction) I21.4 Atrial fibrillation I48.91 Type 2 diabetes mellitus E11.9 Diabetes mellitus complication status: without complication Diabetes mellitus termite treater helper insulin use: without termite treater helper use COPD (chronic obstructive pulmonary disease) J44.1 COPD type: COPD with acute exacerbation Congestive heart failure I50.9 CAD (coronary artery disease) I25.10 PVD (peripheral vascular disease) I73.9
[2020-10-25] MEDS: amiodarone 200 mg Tablet 400 MG PO (17:06)
--- NOTE | 2020-10-25 18:01 | PM.PN ---
Subjective Subjective: Interval history: Patient is having more shortness of breath this morning. She is finding it difficult to lie flat in the bed. She also has been having episodes of chest tightness/heaviness. Sometimes the pain radiates to the neck and also to the shoulders. The intensity of the pain is moderate. No fever or chills. No significant cough. Medications: Reviewed: Yes Medication Review Details: Current Medications Acetaminophen (Acetaminophen 325 Mg Tablet) 650 mg PO Q6H PRN PRN Reason: Mild/Mod Pain Or Temp >/= 101 Hydrocodone Bitart/Acetaminophen (Hydrocodone-Acetaminophen 5-325 Mg Tablet) 1 tab PO Q4H PRN PRN Reason: MODERATE TO SEVERE PAIN Albuterol/Ipratropium (Ipratropium-Albuterol 3 Ml Neb) 3 ml INHALATION TID.RESPIRATORY [facility] Last Admin: 10/25/20 15:32 Dose: 3 ml Documented by: Amiodarone HCl (Amiodarone 200 Mg Tablet) 400 mg PO BID [facility] Last Admin: 10/25/20 17:06 Dose: 400 mg Documented by: Aspirin (Aspirin 81 Mg Ec Tablet) 81 mg PO BEDTIME@23 [facility] Last Admin: 10/25/20 00:05 Dose: 81 mg Documented by: Atorvastatin Calcium (Atorvastatin 40 Mg Tablet) 40 mg PO DAILY [facility] Last Admin: 10/25/20 08:03 Dose: 40 mg Documented by: Bisacodyl (Bisacodyl 5 Mg Tablet) 10 mg PO DAILY PRN PRN Reason: CONSTIPATION Clopidogrel Bisulfate (Clopidogrel 75 Mg Tablet) 75 mg PO DAILY [facility] Last Admin: 10/25/20 08:01 Dose: 75 mg Documented by: Dextrose (Dextrose 50% Syringe 50 Ml) 25 ml IVP ONCE PRN; Protocol PRN Reason: hypoglycemia protocol Dextrose (Dextrose 50% Syringe 50 Ml) 50 ml IVP PRN PRN; Protocol PRN Reason: hypoglycemia protocol Enoxaparin Sodium (Enoxaparin 60 Mg/0.6 Ml Syringe) 50 mg SUBCUT Q12H [facility] Last Admin: 10/25/20 08:00 Dose: 50 mg Documented by: Furosemide (Furosemide 10 Mg/Ml Sdv 4ml) 40 mg IVP Q24H [facility] Last Admin: 10/25/20 08:04 Dose: 40 mg Documented by: Glucagon (Glucagon 1 Mg/Ml Inj 1 Ml) 1 mg IM ONCE PRN; Protocol PRN Reason: Adult Acute Hypoglycemia Prot. Dextrose (D5w) 500 mls @ 100 mls/hr IV ONCE PRN; Protocol PRN Reason: Adult Acute Hypoglycemia Prot Insulin Aspart (Insulin Aspart 100 Unit/1 Ml) 0 unit SUBCUT WM&BEDTIME [facility]; Protocol Last Admin: 10/25/20 17:07 Dose: 10 unit Documented by: Isosorbide Mononitrate (Isosorbide Mononitrate 20 Mg Tablet) 10 mg PO DAILY [facility] Last Admin: 10/25/20 08:03 Dose: 10 mg Documented by: Lanolin (Lanolin Oint 7 Gm) 1 applic TOPICAL PRN PRN PRN Reason: DRYNESS Last Admin: 10/25/20 14:58 Dose: 1 tube Documented by: Methylprednisolone Sodium Succinate (Methylprednisolone Sod Succ 40 Mg/Ml Inj) 40 mg IVP Q24H LIDYA Metoprolol Tartrate (Metoprolol Tartrate 25 Mg Tablet) 25 mg PO Q12H [facility] Last Admin: 10/25/20 08:02 Dose: 25 mg Documented by: Nitroglycerin (Nitroglycerin 0.4 Mg Sublingual Tablet) 0.4 mg SUBLINGUAL Q5M PRN PRN Reason: chest pain Nitroglycerin (Nitroglycerin 1 Gm/Inch Oint Pkt) 1 inch TOPICAL Q6H [facility] Last Admin: 10/25/20 15:41 Dose: Not Given Documented by: Ondansetron HCl (Ondansetron 2 Mg/Ml Sdv 2 Ml) 4 mg IVP Q8H PRN PRN Reason: vomiting, or N/V if npo Pantoprazole Sodium (Pantoprazole Dr 40 Mg Tablet) 40 mg PO DAILY [facility] Last Admin: 10/25/20 08:03 Dose: 40 mg Documented by: Spironolactone (Spironolactone 25 Mg Tablet) 12.5 mg PO DAILY [facility] Last Admin: 10/25/20 08:02 Dose: 12.5 mg Documented by: Tiotropium [place] (Tiotropium 18 Mcg Mdi) 18 mcg INHALATION DAILY [facility] Last Admin: 10/25/20 11:17 Dose: 1 puff Documented by: Venlafaxine HCl (Venlafaxine Er (24hr) 150 Mg Capsule) 150 mg PO DAILY@08 [facility] Last Admin: 10/25/20 08:03 Dose: 150 mg Documented by: Vitals/I&O/Wt Last Vital Signs Temp 97.8 F 10/25/20 15:39 Pulse 76 10/25/20 15:39 Resp 18 10/25/20 15:39 BP 97/54 10/25/20 15:39 Pulse Ox 100 10/25/20 15:39 10/25/20 10/25/20 10/25/20 06:59 14:59 22:59 Intake Total 400 / 1000 480 / 480 240 / 720 Balance 400 / 1000 480 / 480 240 / 720 Weight last 48 hrs Weight 128 lb 8 oz Weight 131 lb 1 oz Physical Exam Narrative: EXAM NARRATIVE: GENERAL: The patient is alert and oriented times three. Not in any acute distress. Slightly tachypneic HEENT: No significant pallor, icterus or lymphadenopathy. Pupils are symmetrical NECK: Trachea appears to be central. No masses noted. No JVD or thyromegaly appreciated. No carotid bruit. RESPIRATORY: Chest is symmetrical. No intercostals muscle retraction or any accessory muscle activation. There is no chest wall tenderness. Breath sounds are heard bilaterally. Fine rales bilaterally at the bases. BREASTS: Deferred. HEART: The PMI is in the 5th left intercostals space just inside the midclavicular line. No palpable precordial events. T the first and the second heart sounds are normal.. Soft S3 with no S4. No pericardial rub or any click heard. Short systolic murmur in the left sternal border. No diastolic murmurs. ABDOMEN: No vessel pulsations or distention. No tenderness. No organomegaly appreciated. No abdominal bruit. Bowel sounds are normally heard. : Deferred. RECTAL: Deferred. LYMPHATIC: No lymphadenopathy noted in the neck or groin. EXTREMITIES: No edema or cyanosis. No clubbing. The pulses are symmetrical bilaterally. The radial, femoral, dorsalis pedis and the posterior tibial pulses are palpated and was found to be in low volume and amplitude. MUSCULOSKELETAL: No acute joint deformities or swelling SKIN: There are no significant scars or skin rash noted. NEUROPSYCHIATRIC: The patient is alert and oriented x3. Appears to be in a good mood. The higher functions are grossly within normal limits. No tremors or rigidity noted. Data : 10/25/20 02:40 10/25/20 02:40 Other Labs: Laboratory Last Values WBC 9.4 10^3/uL (4.0-10.0) 10/25/20 02:40 RBC 3.88 10^6/uL (4.1-5.3) L 10/25/20 02:40 Hgb 11.4 g/dL (11.5-15.3) L 10/25/20 02:40 Hct 36.2 % (37.0-47.0) L 10/25/20 02:40 MCV 93.3 fL (81-99) 10/25/20 02:40 MCH 29.4 pg (28.0-34.0) 10/25/20 02:40 MCHC 31.5 g/dL (30.0-36.0) 10/25/20 02:40 RDW 15.3 % (12.1-15.1) H 10/25/20 02:40 Plt Count 192 10^3/cmm (130-400) 10/25/20 02:40 MPV 13.0 fL (7.4-10.4) H 10/25/20 02:40 Neut % (Auto) 84.5 % 10/25/20 02:40 Lymph % (Auto) 11.5 % 10/25/20 02:40 [place] % (Auto) 3.5 % 10/25/20 02:40 Eos % (Auto) 0.0 % 10/25/20 02:40 Baso % (Auto) 0.1 % 10/25/20 02:40 Neut # (Auto) 7.97 10^3/uL (1.8-7.7) H 10/25/20 02:40 Lymph # (Auto) 1.1 10^3/uL (0.8-4.8) 10/25/20 02:40 [place] # (Auto) 0.3 10^3/uL (0.2-0.9) 10/25/20 02:40 Eos # (Auto) 0.0 10^3/uL (0.0-0.8) 10/25/20 02:40 Baso # (Auto) 0.0 10^3/uL (0.0-0.1) 10/25/20 02:40 Nucleated RBC % (auto) 0 % 10/25/20 02:40 Nucleated RBCs # 0.0 /100WBC 10/25/20 02:40 PT 15.40 SECONDS (12.1-14.9) H 10/23/20 03:55 INR 1.18 (0.8-1.2) 10/23/20 03:55 D-Dimer 0.31 ug/mIFEU (0-0.59) 10/25/20 02:40 Sodium 136 mmol/L (136-145) 10/25/20 02:40 Potassium 4.5 mmol/L (3.5-5.1) 10/25/20 02:40 Chloride 104 mmol/L (98-107) 10/25/20 02:40 Carbon Dioxide 20 mmol/L (22-29) L 10/25/20 02:40 Anion Gap 16.5 (5-19) 10/25/20 02:40 BUN 38 mg/dL (8-23) H 10/25/20 02:40 Creatinine 1.0 mg/dL (0.5-0.9) H 10/25/20 02:40 GFR Calculation Not Reportable 10/25/20 02:40 Glucose 217 mg/dL (65-115) H 10/25/20 02:40 POC Glucose 279 mg/dL (70-110) H 10/25/20 16:06 Calculated Osmolality 298 mOsm/kg (285-295) H 10/25/20 02:40 Calcium 8.7 mg/dL (8.5-10.5) 10/25/20 02:40 Magnesium 2.1 mg/dL (1.7-2.3) 10/24/20 09:24 Total Bilirubin 0.5 mg/dL (0.15-1.2) 10/25/20 02:40 AST 34 U/L (0-32) H 10/25/20 02:40 ALT 29 U/L (0-33) 10/25/20 02:40 Alkaline Phosphatase 120 IU/L (35-105) H 10/25/20 02:40 Troponin T Baseline 49 ng/L (0-10) H 10/22/20 14:50 Troponin T 120 Minute 76.95 ng/L (0-10) H 10/22/20 16:53 Delta Troponin T 27.95 ABS# (0-10) H* 10/22/20 16:53 Troponin T Hi Sens 6Hr 207.0 ng/L (0-10) H 10/22/20 20:49 Troponin T Hi Sens 6Hr Delta 158.0 ng/L (0-12) H* 10/22/20 20:49 NT-Pro-B Natriuret Pep 18782 pg/mL (0-450) H 10/22/20 14:50 Total Protein 6.5 g/dL (6.6-8.7) L 10/25/20 02:40 Albumin 3.8 g/dL (3.5-5.2) 10/25/20 02:40 Globulin 2.7 g/dL (1.3-4.6) 10/25/20 02:40 SARS-CoV-2 Ag (Rapid) Negative (Negative) 10/22/20 16:00 A&P Assessment and plan (1) NSTEMI (non-ST elevated myocardial infarction): Elevated troponin T may suggest non-ST elevation myocardial infarction. However in view of her severe LV systolic dysfunction, atrial fibrillation and frequent ventricular arrhythmia, a type II myocardial infarction also is a consideration. In view of the patient's ongoing recurrent episodes of chest pain, in order to further evaluate her coronary status, she may benefit from a cardiac catheterization. We will try to optimize her heart failure management prior to the coronary angiogram. Status: Acute (2) Cardiomyopathy: Her left ventricle ejection fraction around 25% in the current echocardiogram. Which is not significantly different from the previous echocardiogram. I reviewed both studies. The patient may require an ICD, if the ejection fraction stays below 35% even after optimizing the medical treatment. In the meanwhile, she may benefit from a LifeVest. Status: Acute Qualifiers: Cardiomyopathy type: unspecified Qualified Code(s): I42.9 - Cardiomyopathy, unspecified (3) Type 2 diabetes mellitus: Continue the current management as per the primary. Status: Acute Qualifiers: Diabetes mellitus complication status: without complication Diabetes mellitus correction insulin use: without correction use Qualified Code(s): E11.9 - Type 2 diabetes mellitus without complications (4) COPD (chronic obstructive pulmonary disease): Management of the COPD exacerbation, as per the primary. Status: Acute Qualifiers: COPD type: COPD with acute exacerbation Qualified Code(s): J44.1 - Chronic obstructive pulmonary disease with (acute) exacerbation (5) Hyperlipemia: May continue on the current medications. Patient seems to be tolerating the medication so far well. Status: Acute Qualifiers: Hyperlipidemia type: mixed hyperlipidemia Qualified Code(s): E78.2 - Mixed hyperlipidemia Additional A&P Information I discussed with the patient's family in detail about the current clinical status and the treatment options. Because of her increasing episodes of chest tightness/heaviness, a repeat cardiac catheterization would be appropriate. But because of her high BUN/creatinine ratio, she carries a high risk for contrast-induced nephropathy. This was discussed in detail with the patient and her family(her and the 2 daughters.) Also discussed about the need for a LifeVest. They understood this well and is going to discuss them themselves. They will let us know, once they decide to go with the angiogram and also about the LifeVest. In the meanwhile, she may be continued on the therapeutic dose of the Lovenox, adjusted to renal function. May continue to hold the Eliquis. Based on the patient's the clinical progress, further management decisions will be made. Attestations Medical Necessity Statement*: Patient requires continued hospital stay for close monitoring and further management Coding Level of Care Code Acute Orthotics Prosthetics Assistant for [facility] Fw Diagnoses NSTEMI (non-ST elevated myocardial infarction) I21.4 Cardiomyopathy I42.9 Cardiomyopathy type: unspecified Type 2 diabetes mellitus E11.9 Diabetes mellitus complication status: without complication Diabetes mellitus correction insulin use: without correction use COPD (chronic obstructive pulmonary disease) J44.1 COPD type: COPD with acute exacerbation Hyperlipemia E78.2 Hyperlipidemia type: mixed hyperlipidemia
--- NOTE | 2020-10-25 20:13 | PC.NURSE ---
PT IS RESTING IN BED. PT DENIES PAIN. WILL CONTINUE TO MONITOR.
--- NOTE | 2020-10-25 20:42 | PM.CONSULT ---
Providers/Reason For Consult Consulting Physican/Specialty*: Julius Kumar MD/Pulmonary Reason for Consult*: Dyspnea in pt with h/o COPD and severe systolic heart failure Attending Physician: Guanako Mariano MD Primary Care Provider: Karen Meza History of Present Illness History of Present Illness Germaine Perez is a 80 year old female with past medical history of hypertension, diabetes, COPD on 3 L home oxygen, A. fib, CAD status post stent (RCA and LAD in 2001 and 2011), severe systolic heart failure came with complaining of central chest tightness for last 5 days associated with shortness of breath and fatigue. Admitted to cardiac stepdown for evaluation of chest pain in view of significant coronary artery disease. EKG in ED revealed sinus tachycardia with left bundle branch block. Labs significant for BNP 10,000, baseline troponin 49. Patient is afebrile and normal WBC count and chest x-ray did not reveal any infiltrate. Patient received aspirin 325 stat dose, Nitropaste 0.5 SL, Lovenox 50,. Pulmonary consult called for dyspnea patient with history of severe COPD. Patient seen at bedside 96% on oxygen. Patient complained of chest pain which is worse in the last couple of days., But she has shortness of breath especially on exertion for several months. Denied any wheeze or leg swelling or dizziness or cough. She is on 3 L home oxygen and uses Spiriva patient smoked 1 pack/day for 64 years and says that she quit June 16 while she was on Chantix. Review of Systems General: Reports: 10 or more systems reviewed and unremarkable except in HPI and below Card: Reports: chest pain Meds/Allergies Home Medications and Allergies Home Medications Medication Instructions Recorded Confirmed Last Taken Type nitroglycerin 0.4 mg sublingual 0.4 mg SUBLINGUAL Q5M PRN 30 Days 12/31/19 10/22/20 10/22/20 Rx tablet #25 tab Spiriva with HandiHaler 1 cap INHALATION DAILY@03/30/20 10/22/20 10/22/20 History Trulicity 0.75 mg SUBCUT Q7D 03/30/20 10/22/20 10/15/20 History albuterol sulfate 1 inh INHALATION QID PRN 03/30/20 10/22/20 Unknown History Eliquis 5 mg PO BID@04/08/20 10/22/2020 History aspirin [Adult Low Dose Aspirin] 81 mg PO BEDTIME@23 04/08/20 10/22/20 10/21/20 History spironolactone 12.5 mg PO DAILY 10/22/20 10/22/20 Unknown History venlafaxine 150 mg PO DAILY@08 10/22/20 10/22/20 10/22/20 History Allergies Allergy/AdvReac Type Severity Reaction Status Date / Time propoxyphene [From Darvon] Allergy Unknown Unknown Verified 10/22/20 14:28 Sulfa (Sulfonamide Allergy Unknown Unknown Verified 10/22/20 14:28 Antibiotics) Current Medications Current Medications Generic Name Dose Route Start Last Admin Trade Name Freq PRN Reason Stop Dose Admin Albuterol/Ipratropium 3 ml 10/25/20 15:00 10/25/20 20:39 Ipratropium-Albuterol 3 Ml Neb INHALATION 3 ml TID.RESPIRATORY LIDYA Administration Amiodarone HCl 400 mg 10/25/20 16:30 10/25/20 17:06 Amiodarone 200 Mg Tablet PO 400 mg BID LIDYA Administration Aspirin 81 mg 10/22/20 23:00 10/25/20 00:05 Aspirin 81 Mg Ec Tablet PO 81 mg BEDTIME@23 LIDYA Administration Atorvastatin Calcium 40 mg 10/23/20 09:00 10/25/20 08:03 Atorvastatin 40 Mg Tablet PO 40 mg DAILY LIDYA Administration Clopidogrel Bisulfate 75 mg 10/24/20 19:00 10/25/20 08:01 Clopidogrel 75 Mg Tablet PO 75 mg DAILY LIDYA Administration Enoxaparin Sodium 50 mg 10/23/20 20:00 10/25/20 19:52 Enoxaparin 60 Mg/0.6 Ml Syringe SUBCUT 50 mg Q12H LIDYA Administration Furosemide 40 mg 10/24/20 08:30 10/25/20 08:04 Furosemide 10 Mg/Ml Sdv 4ml IVP 40 mg Q24H LIDYA Administration Insulin Aspart 0 unit 10/22/20 18:00 10/25/20 17:07 Insulin Aspart 100 Unit/1 Ml SUBCUT 10 unit WM&BEDTIME LIDYA Administration Protocol Isosorbide Mononitrate 10 mg 10/23/20 09:45 10/25/20 08:03 Isosorbide Mononitrate 20 Mg Tablet PO 10 mg DAILY LIDYA Administration Lanolin 1 applic 10/25/20 13:45 10/25/20 14:58 Lanolin Oint 7 Gm TOPICAL 1 tube PRN PRN Administration DRYNESS Metoprolol Tartrate 25 mg 10/22/20 19:21 10/25/20 19:51 Metoprolol Tartrate 25 Mg Tablet PO 25 mg Q12H LIDYA Administration Nitroglycerin 1 inch 10/23/20 15:15 10/25/20 15:41 Nitroglycerin 1 Gm/Inch Oint Pkt TOPICAL Not Given Q6H LIDYA Pantoprazole Sodium 40 mg 10/23/20 09:00 10/25/20 08:[address] 40 Mg Tablet PO 40 mg DAILY LIDYA Administration Spironolactone 12.5 mg 10/23/20 09:00 10/25/20 08:02 Spironolactone 25 Mg Tablet PO 12.5 mg DAILY LIDYA Administration Tiotropium Irwin 18 mcg 10/23/20 09:00 10/25/20 11:17 Tiotropium 18 Mcg Mdi INHALATION 1 puff DAILY LIDYA Administration Venlafaxine HCl 150 mg 10/23/20 08:00 10/25/20 08:03 Venlafaxine Er (24hr) 150 Mg Capsule PO 150 mg DAILY@08 LIDYA Administration PFSH Acute PFSH: Medical History (Updated 10/25/20 @ 21:17 by Julius Kumar MD) CAD (coronary artery disease) Cardiomyopathy COPD (chronic obstructive pulmonary disease) History of heart attack Hyperlipemia Increase to high intensity statin Left bundle branch block PVD (peripheral vascular disease) Type 2 diabetes mellitus Surgical History Hx of cardiac cath 2001: Stent placement to RCA July 2012: Stent placement to LAD with noted 60% proximal LCx lesion Hx of heart artery stent Hx of hysterectomy S/P cataract surgery S/P knee surgery S/P trigger finger release Family History Denies family history of Diabetes CAD (coronary artery disease) Clotting disorder Dementia Hyperlipidemia Psychiatric illness Chronic kidney disease (CKD) Suicide Anesthesia complication Bleeding disorder Family history of premature coronary artery disease Lung disease Cancer Hypertension Stroke Social History Smoking and tobacco status: former smoker Alcohol intake: never Current occupational status: retired Vitals/I&O/Wt Last Vital Signs Temp 97.8 F 10/25/20 15:39 Pulse 78 10/25/20 20:39 Resp 18 10/25/20 20:39 BP 97/54 10/25/20 15:39 Pulse Ox 97 10/25/20 20:39 10/25/20 10/25/20 10/25/20 06:59 14:59 22:59 Intake Total 400 / 1000 480 / 480 240 / 720 Balance 400 / 1000 480 / 480 240 / 720 Weight last 48 hrs Weight 128 lb 8 oz Weight 131 lb 1 oz Physical Exam Narrative: EXAM NARRATIVE: General: Thin built, elderly woman, alert, in mild respiratory distress HEENT: conj clear, EOMI, PERRL, mmm, Neck: supple, no meningismus Heme: no cervical LAP Pulmonary: Bilateral air entry present with bibasilar Cardiovascular: rrr, nl s1s2, no mrg Abdomen: soft, nt, nd, no r/g, bs+ Extremities: pulses +, no edema, no c/c : no CVA tenderness Skin: intact, no rash MSK: no back or neck pain Neurologic: grossly intact Data Other Data: Other data: Pertinent Prior Studies : . CAG ( 03/2020 ) : LM has 0% stenosis. LAD has 0% stenosis. CX has 0% stenosis. pRCA to mRCA: Mild 30% stenosis . LAD has luminal irregularities with patent previously placed mid segment stent2-LCx has luminal irregularity with without significant stenosis3-RCA has luminal irregularities with patent previously placed stent however there is in-stent restenosis which is recorded at 30%. Stress Test : 03/2020: Medium-sized area of moderate to severe reversibility noted in mid to distal anterior and anteroseptal wall suggestive of ischemia in the LAD territory. Medium-sized area of fixed perfusion defect noted in basal to mid inferior and inferolateral wall suggestive of old myocardial infarction versus scarring. 2D Echo : 03/2020 Mildly increased left ventricular cavity size. Normal left ventricular wall thickness. Severely decreased left ventricular systolic function. Global left ventricular hypokinesis. Left ventricular ejection fraction is estimated at 30 %. Grade II/IV diastolic dysfunction. Echo 10/23/2020: LV systolic function is severely reduced with EF of 20 to 25%. Severe global hypokinesis is noted. Grade 2 diastolic dysfunction is present. Elevated filling pressures. Left atrium is enlarged. Mild to moderate mitral regurgitation is present. Mild pulmonary hypertension is noted. RVSP 36 Compared to prior echo of 03/30/2020, LV systolic function has further reduced to 20 to 25%. A&P Assessment and plan (1) NSTEMI (non-ST elevated myocardial infarction): Status: Acute (2) Unstable angina pectoris: Status: Acute (3) Atrial fibrillation: Status: Acute Qualifiers: Atrial fibrillation type: unspecified chronic Qualified Code(s): I48.20 - Chronic atrial fibrillation, unspecified (4) COPD (chronic obstructive pulmonary disease): Status: Acute Qualifiers: COPD type: COPD with acute exacerbation Qualified Code(s): J44.1 - Chronic obstructive pulmonary disease with (acute) exacerbation (5) Congestive heart failure: Status: Acute Qualifiers: Heart failure type: systolic Heart failure chronicity: acute on chronic Qualified Code(s): I50.23 - Acute on chronic systolic (congestive) heart failure (6) CAD (coronary artery disease): Status: Acute Qualifiers: Coronary Disease-Associated Artery/Lesion type: unspecified vessel or lesion type Associated angina: with unstable angina [place] vs. transplanted heart: [place] heart Qualified Code(s): I25.110 - Atherosclerotic heart disease of [place] coronary artery with unstable angina pectoris (7) Ex-smoker for less than 1 year: Status: Acute (8) Pulmonary artery hypertension: Status: Acute #Chest pain and acute dyspnea likely secondary to unstable angina/NSTEMI in patient with severe underlying CAD (with previous 2 stents) and ??? worsening LV function on echo -Cardiology on the case -Patient on ASA, Plavix, nitrates, metoprolol 25 twice daily, Lipitor 40 mg daily, Lovenox -On amiodarone currently p.o. twice daily and Lovenox for atrial fibrillation -She is on Lasix 40 mg daily and spironolactone for CHF -Plan is to do coronary angiogram once optimizing CHF -Also considering AICD medical optimization of CHF #Underlying chronic dyspnea likely combination of underlying severe COPD and CHF and combination of group 2 and 3 pulmonary hypertension #Chronic smoker smoked 1 pack/day for 64 years and quit recently in May 2020 -Chest x-ray no evidence of infection, no leukocytosis, afebrile -less likely in COPD exacerbation -On home oxygen 3 L and no increasing requirements -Reported never been to a senior qc technician nor having PFTs; -Reported using Spiriva at home given by PCP -Currently on Solu-Medrol 40 daily and DuoNeb nebulization 3 times daily -Can taper steroids and stop over the next couple of days -LDCT March 2020: No suspicious pulmonary nodules but showed severe chronic emphysematous changes -Patient requires PFT to determine the severity of COPD -Based on previous CT and current hospitalization patient mMRC >3 -patient can be classified as group 4 and should be on LAMA + LABA + ICS as outpatient (Trelegy 1 puff daily) -Once discharged-patient would benefit from pulmonary rehabilitation -Patient reported being up-to-date with flu vaccination and Pneumovax vaccination -Recommended to discharge to pulmonary clinic with Trelegy 1 puff daily and Pulmicort nebulization 0.5 mg twice daily and Xopenex nebulization every 6 hours as needed. -I will follow up in clinic and optimize COPD management based on PFTs and referred to pulmonary rehab Medical condition, labs, investigations, medications, counseling regarding medication compliance, side effects, importance of follow-up appointments, smoking-its adverse effects and importance of abstinence and plan of care-everything explained in detail to the patient, her and to her daughter on phone. They verbalized understanding and agreed with the plan of care. Recommendations conveyed to hospitalist covering the patient Consult Attestations Medical Necessity Statement: Exertional chest pain and worsening dyspnea being evaluated for acute coronary syndrome in patient with history of severe CAD, severe systolic CHF, atrial fibrillation Time Spent in Patient Care: Greater than 35 minutes (>than 50% of time spent in counselling and/or direct pt care on unit). Including time spent discussing medical condition with patient and family Coding Level of Care Code New Pt Acute Vegetable Cook for Chg Fwd Patient Type New History Comprehensive Exam Comprehensive Medical Decision Making High Complexity Diagnoses NSTEMI (non-ST elevated myocardial infarction) I21.4 Unstable angina pectoris I20.0 Atrial fibrillation I48.20 Atrial fibrillation type: unspecified chronic COPD (chronic obstructive pulmonary disease) J44.1 COPD type: COPD with acute exacerbation Congestive heart failure I50.23 Heart failure type: systolic Heart failure chronicity: acute on chronic CAD (coronary artery disease) I25.110 Coronary Disease-Associated Artery/Lesion type: unspecified vessel or lesion type Associated angina: with unstable angina [place] vs. transplanted heart: [place] heart Ex-smoker for less than 1 year Z78.9 Pulmonary artery hypertension I27.21 Time Spent (min) 45
[2020-10-25 21:35] LABS: Glucose Point of Care 391 mg/dL (70-110)
[2020-10-26] VITALS (32 sets, daily range): BP systolic 89–119; BP diastolic 48–68; PULSE 63–80; RESP 6–22; TEMP 36.3–37.3; O2SAT 91–100
[2020-10-26] MEDS: nitroglycerin 1 gm/inch oint Pkt 1 INCH TOPICAL ×3 (03:31→21:14)
--- NOTE | 2020-10-26 03:34 | PC.NURSE ---
PT HAD AN UNEVENTFUL NIGHT. PT DENIES PAIN. WILL CONTINUE TO MONITOR.
[2020-10-26 05:27] LABS: Basophils % 0.1 %; Hematocrit 34.2 % (37.0-47.0); Lymphocytes # 1.1 10^3/uL (0.8-4.8); Lymphocytes % 8.5 %; Mean Corpuscular HGB Conc 32.2 g/dL (30.0-36.0); Mean Corpuscular Hemoglobin 29.3 pg (28.0-34.0); Mean Corpuscular Volume 91.2 fL (81-99); Mean Platelet Volume 12.4 fL (7.4-10.4); Monocytes # 1.5 10^3/uL (0.2-0.9); Monocytes % 11.6 %; Neutrophils % 79.4 %; Nucleated Red Blood Cells % 0 %; Platelet Count 179 10^3/cmm (130-400); Red Blood Count 3.75 10^6/uL (4.1-5.3); Red Cell Distribution Width 15.1 % (12.1-15.1)
[2020-10-26 06:15] LABS: Blood Urea Nitrogen 38 mg/dL (8-23); Calcium 8.1 mg/dL (8.5-10.5); Carbon Dioxide 24 mmol/L (22-29); Chloride 101 mmol/L (98-107); Glucose 180 mg/dL (65-115); Osmolality Calculated 302 mOsm/kg (285-295); Sodium 139 mmol/L (136-145)
[2020-10-26] MEDS: metoprolol tartrate 25 mg Tablet PO ×2 (08:21→19:07)
[2020-10-26] MEDS: isosorbide mononitrate 20 mg Tablet 10 MG PO (08:21)
[2020-10-26] MEDS: pantoprazole DR 40 mg Tablet PO (08:22)
[2020-10-26] MEDS: clopidogrel 75 mg Tablet PO (08:22)
[2020-10-26] MEDS: venlafaxine ER (24HR) 150 mg Capsule PO (08:22)
[2020-10-26] MEDS: amiodarone 200 mg Tablet 400 MG PO ×2 (08:22→17:26)
[2020-10-26] MEDS: atorvastatin 40 mg Tablet PO (08:22)
[2020-10-26] MEDS: spironolactone 25 mg Tablet 12.5 MG PO (08:22)
[2020-10-26] MEDS: FUROsemide 10 mg/mL SDV 4mL 40 MG IVP (08:25)
[2020-10-26 08:29] LABS: Glucose Point of Care 168 mg/dL (70-110)
[2020-10-26] MEDS: ipratropium-albuterol 3 mL Neb INHALATION ×2 (09:09→20:20)
--- NOTE | 2020-10-26 09:32 | XACV_ITS ---
Exam Room: [facility] Ht: 160 cm Wt: 57 kg BSA: 1.60 m2 Gender: Female : 1940 Any Known Allergies: Other Exam Priority: Routine Procedure(s): Procedure Description: Diagnostic procedure Procedure Description: PCI procedure Procedure Description: Left Heart Catheterization Procedure Description: Drug Eluting Coronary Stent Procedure Description: PTCA Procedure Description: Miscellaneous Procedure Description: ACT Procedure Description: Coronary Angiography Diagnostic Cath Status: Urgent Diagnostic Findings * LM arises from left coronary cusp. It has mild luminal irregularities.. * LAD arises from left main artery. It is a large sized vessel. It has a patent mid vessel stent. Mild luminal irregularities are noted.. * RCA has mid vessel patent stent. It has 20 to 30% in-stent restenosis. No significant stenosis is noted in the RCA.. * Left circumflex artery arises from left main artery. * P * roximal Circumflex Coronary Artery: Severe 80% stenosis, MARTY: 3 flow. This lesion is hazy looking and is the culprit for NSTEMI.. * Coronary angiography shows right dominance. PCI Status: Urgent PCI Indication: NSTE - ACS Interventional Findings * We engaged left main artery using XB 3.5 guide catheter. A 0.014 cougar guidewire was used to cross the proximal circumflex artery stenosis. We used 2.5 x 8 mm semicompliant balloon to predilate the stenosis. This was followed by placement of 3.0 x 12 mm resolute [place] drug-eluting stent. Proximal segment of the stent looked hazy. We placed another 3.0 x 8 mm resolute [place] stent to cover the proximal segment with overlap with the prior stent. At this time final angiogram was performed that showed excellent stent expansion, no residual stenosis and MARTY-3 flow. Guide catheter and guidewire was removed. TR band was put to achieve hemostasis. Patient left the Educational Aide in a stable condition.. * Proximal Circumflex Coronary Artery: 80% stenosis treated with AB TREK 2.50X8 RX BALLOON, MDT R FE 3.0X12 LANI, and MDT R FE 3.0X8 LANI. 0% residual stenosis, MARTY: 3 flow. Conclusions 1. There is severe coronary artery disease with one vessel disease. 2. Proximal Circumflex Coronary Artery was treated with Balloon and two Drug Eluting Stent. Recommendations * Transfer back to [facility]. * Triple therapy with aspirin, Plavix and Eliquis till patient is inpatient. On discharge patient can be discharged on Plavix and Eliquis only. * Patient's LVEDP is still high. Continue diuresis. * Patient has HFrEF, should be discharged on LifeVest for prevention of sudden cardiac . * Statin therapy and aggressive risk factor control. Interventional RX Recommendation: PCI w/o planned CABG Diagnostic RX Recommendation: PCI w/o planned CABG Anticoagulation: Heparin Pressures Phase:Rest AO : 91 / 56 ( 71 ) @ 4:08:00 AM 92 / 49 ( 68 ) @ 4:12:00 AM 92 / 43 ( 61 ) @ 4:28:00 AM 126 / 55 ( 86 ) @ 4:42:00 AM 129 / 59 ( 86 ) @ 4:42:00 AM LV : 131 / 24 / @ 4:41:00 AM 126 / 17 / @ 4:42:00 AM Valves Phase:DefaultPhase AV : 1.0 @ 10:51:24 AM AV Mean Gradient: 0.0 @ 10:51:24 AM Clinical Evaluation EBL: 5mL-10mL Procedural Details Procedure Consent Obtained. Pre-Procedure Time Out. Identified patient by full name and date of as verbalized by the patient/guarantor. Does the consent match the physician's order: Yes. Accurate & Complete Informed Consent: Yes. Inpatient/Outpatient History & Physical on Chart: Yes. If H&P is completed, is and addenduem needed: No; If yes, is the addendum complete: N/A. Visualize and Verify Site with Patient/Guarantor: N/A. Relevant Radiology Images available: N/A. Pre-op teaching completed and patient verbalized understanding. The risks, benefits, and alternatives of sedation and/or procedure were discussed by physician. The patient agrees to continue. Procedure started. Physician arrived. [facility] Clinical Fraility Score: 4: Vulnerable. Educational Aide Indications:CAD. Chest Pain Symptom Assessment: Typical Angina Symptoms. Cardiovascular Instability: No. Correct patient, site and procedure confirmed by cath team. PERRLA. Strong, equal hand spare hand carding bilaterally. Lungs clear x 5 lobes. IV Site on Arrival: 20 gauge in the right forearm. IV Fluids: 0.9% NaCl at KVO. 0 mL infused prior to laborer mine. Pre Procedural Pulses: bilateral radial was 2+. Pre Procedural Pulses: bilateral dorsalis pedis was Doppled. Pre Procedural Pulses: bilateral posterior tibial was Doppled. Oxygen started at 3liters/min via nasal canula. bilateral groins was prepped with chloroprep then draped in the usual sterile fashion. right radial was prepped with chloroprep then draped in the usual sterile fashion. Baseline sample Acquired. HR: 68 BPM. Equipment: 6F - Radial. Cardiac Cath Pack. ACIST Manifold Kit Model BT 2000. Heparinized Saline (2 units/mL), 1000 mL bag. Physician scrubbed in. Immediate Pre-Procedure Time Out. Correct Patient: Yes; Correct Procedure: Yes; Correct Site: Yes; Correct Patient Position: Yes; Correct Supplies: Yes; Dried Flammable Prep: Yes; Blood Products Available: N/A;. Lidocaine 1% infiltrated to the right radial. Arterial access obtained. A 5 [place] TIG catheter in over wire. Multiple views taken of left coronary artery. Catheter redirected to the RCA. Catheter removed over the exchange wire. Inventory is [employer] [place] XT .014 190cm Str. Guidewire. 6 [place] XB 3.5 guide catheter was inserted over the wire. [place] guidewire was advanced through the guide catheter to lesion in the prox Circ. Inflation number : 1 A AB TREK 2.50X8 RX BALLOON was prepped and advanced across the Prox CX , then inflated to 14 RADHA for 0:26 seconds. Inflation number: 2 The AB TREK 2.50X8 RX BALLOON was reinflated across the Prox CX, to 14 RADHA for 0:19 seconds. Balloon out. Inflation Number : 3 A MDT R FE 3.0X12 LANI -Lot Number# [id number] exp date 04/09/2021 was prepped and advanced across the Prox CX. The stent was deployed at 12 RADHA for 0:18 seconds. Stent balloon out over wire. Results checked. ACT drawn. Results 416 seconds. Therapeutic limits - pre-heparin administration 90-150 seconds and monitoring heparin during a vascular procedure >250 seconds. Inflation Number : 4 A MDT R FE 3.0X8 LANI -Lot Number# [id number] exp date 12/29/2021 was prepped and advanced across the Prox CX. The stent was deployed at 12 RADHA for 0:18 seconds. Inflation number: 5 The stent balloon was then re-inflated across the Prox CX to 12 RADHA for 0:11 seconds. Stent balloon out over wire. Results checked. Wire out. Guide catheter out. A 5 con[place] catheter in over wire. EDP Sample taken: LV 131/24,38; HR: 90 BPM; SpO2: 92%. Pullback taken: LV 126/17,31; AO 126/55(86); Mean: 0mmHg, Peak to Peak: 1mmHg, SEP: 22sec/min; HR: 74 BPM; SpO2: 92%. Catheter removed over the exchange wire. Physician scrubbed out. A TR Band was successful obtaining hemostatsis at the Right Radial artery insertion site. TR band placed. Hemostasis obtained. Post Procedure: Pulses reassessed and unchanged. PERRLA. Strong, equal hand spare hand carding bilaterally. No VTE prophylaxis required. Medication's Wasted: Lidocaine 1% = 18 mL. Medication's Wasted: Nitro = 49.7 mg. Medication's Wasted: Heparin = 4000 units. Medication's Wasted: Other = versed 1 mg. Medication's Wasted: Other = fentanyl 75 mcg. Medication's Wasted: Other = lasix 40 mg. Total IV fluids: 55.2 mL. Contrast type used: Omnipaque 300 mgI/mL, 500 mL bottle. Post-op diagnosis: severe prox circ disease. Complications: none. Estimated blood loss: 5mL-10mL. Procedure completed. Patient transferred by wheelchair to 1st floor. Vital chart was stopped. Access Site Site: Right Radial artery Sheath Size: 6 Fr Hemostasis Method: TR Band Hemostasis Success: Successful Procedure Medications Start: 9:58 AM Stop: 9:58 AM Medication: Versed Amount: 1 mg Route: I.V. Start: 9:58 AM Stop: 9:58 AM Medication: Fentanyl Amount: 25 mcg Route: I.V. Start: 10:00 AM Stop: 10:00 AM Medication: Benadryl Amount: 50 mg Route: I.V. Start: 10:03 AM Stop: 10:03 AM Medication: Versed Amount: 1 mg Route: I.V. Start: 10:06 AM Stop: 10:06 AM Medication: Nitrogylcerin Amount: 100 mcg Route: I.A. Start: 10:07 AM Stop: 10:07 AM Medication: Heparin Amount: 3000 units Route: I.V. Start: 10:18 AM Stop: 10:18 AM Medication: Heparin Amount: 4000 units Route: I.V. Start: 10:36 AM Stop: 10:36 AM Medication: Nitrogylcerin Amount: 200 mcg Route: I.C. Start: 10:44 AM Stop: 10:44 AM Medication: Lasix (furosemide) Amount: 60 mg Route: I.V. Start: 10:50 AM Stop: 10:50 AM Medication: Plavix Amount: 300 mg Route: P.O. I, the attending physician, have reviewed and verified all procedure medications. Yes, all medications given per verbal order History/Risk Factors Hypertension: No Dyslipidemia: No Peripheral Arterial Disease (PAD): No Myocardial Infarction (GA): No Obesity: No Renal Disease: No Prior Interventions PCI: Yes CABG: No Valve Surgery: No Report Signatures Finalized by Gonzalez Swain MD on 10/27/2020 12:47 PM
--- NOTE | 2020-10-26 09:57 | W.PM.OPSUD ---
Surgery/Procedure H&P Update DATE OF PROCEDURE: October 26, 2020 DATE H&P PERFORMED: 10/24/20 H&P UPDATE INFORMATION: I have reviewed H&P completed within last 30 days, I have examined patient prior to procedure and No changes to prior documentation PREOP DIAGNOSIS: NSTEMI PRIMARY INDICATION FOR PROCEDURE: NSTEMI PLANNED PROCEDURE: Coronary angiography/left heart cath/Possible percutaneous coronary intervention PATIENT REASSESSED PRIOR TO SEDATION, WITH NO CHANGE NOTED: Yes PHYSICAL EXAM: alert, oriented x 3 and clear to auscultation bilaterally AIRWAY EVAL/ANESTHESIA PLAN: normal airway, see other exam findings, ASA III, Risks, benefits & alternatives of sedation and/or procedure discussed and Patient agrees to continue as planned
--- NOTE | 2020-10-26 10:43 | P.PN_ITS ---
Subjective Subjective: Interval history: Patient is feeling better, her SOB has improved.Den any chest tightness or pain. Vitals and labs have been reviewed. Medications: Reviewed: Yes Medication Review Details: Current Medications Acetaminophen (Acetaminophen 325 Mg Tablet) 650 mg PO Q6H PRN PRN Reason: Mild/Mod Pain Or Temp >/= 101 Hydrocodone Bitart/Acetaminophen (Hydrocodone-Acetaminophen 5-325 Mg Tablet) 1 tab PO Q4H PRN PRN Reason: MODERATE TO SEVERE PAIN Albuterol/Ipratropium (Ipratropium-Albuterol 3 Ml Neb) 3 ml INHALATION TID.RESPIRATORY [facility] Last Admin: 10/25/20 15:32 Dose: 3 ml Documented by: Amiodarone HCl (Amiodarone 200 Mg Tablet) 400 mg PO BID [facility] Last Admin: 10/25/20 17:06 Dose: 400 mg Documented by: Aspirin (Aspirin 81 Mg Ec Tablet) 81 mg PO BEDTIME@23 [facility] Last Admin: 10/25/20 00:05 Dose: 81 mg Documented by: Atorvastatin Calcium (Atorvastatin 40 Mg Tablet) 40 mg PO DAILY [facility] Last Admin: 10/25/20 08:03 Dose: 40 mg Documented by: Bisacodyl (Bisacodyl 5 Mg Tablet) 10 mg PO DAILY PRN PRN Reason: CONSTIPATION Clopidogrel Bisulfate (Clopidogrel 75 Mg Tablet) 75 mg PO DAILY [facility] Last Admin: 10/25/20 08:01 Dose: 75 mg Documented by: Dextrose (Dextrose 50% Syringe 50 Ml) 25 ml IVP ONCE PRN; Protocol PRN Reason: hypoglycemia protocol Dextrose (Dextrose 50% Syringe 50 Ml) 50 ml IVP PRN PRN; Protocol PRN Reason: hypoglycemia protocol Enoxaparin Sodium (Enoxaparin 60 Mg/0.6 Ml Syringe) 50 mg SUBCUT Q12H [facility] Last Admin: 10/25/20 08:00 Dose: 50 mg Documented by: Furosemide (Furosemide 10 Mg/Ml Sdv 4ml) 40 mg IVP Q24H [facility] Last Admin: 10/25/20 08:04 Dose: 40 mg Documented by: Glucagon (Glucagon 1 Mg/Ml Inj 1 Ml) 1 mg IM ONCE PRN; Protocol PRN Reason: Adult Acute Hypoglycemia Prot. Dextrose (D5w) 500 mls @ 100 mls/hr IV ONCE PRN; Protocol PRN Reason: Adult Acute Hypoglycemia Prot Insulin Aspart (Insulin Aspart 100 Unit/1 Ml) 0 unit SUBCUT WM&BEDTIME [facility]; Protocol Last Admin: 10/25/20 17:07 Dose: 10 unit Documented by: Isosorbide Mononitrate (Isosorbide Mononitrate 20 Mg Tablet) 10 mg PO DAILY [facility] Last Admin: 10/25/20 08:03 Dose: 10 mg Documented by: Lanolin (Lanolin Oint 7 Gm) 1 applic TOPICAL PRN PRN PRN Reason: DRYNESS Last Admin: 10/25/20 14:58 Dose: 1 tube Documented by: Methylprednisolone Sodium Succinate (Methylprednisolone Sod Succ 40 Mg/Ml Inj) 40 mg IVP Q24H [facility] Metoprolol Tartrate (Metoprolol Tartrate 25 Mg Tablet) 25 mg PO Q12H [facility] Last Admin: 10/25/20 08:02 Dose: 25 mg Documented by: Nitroglycerin (Nitroglycerin 0.4 Mg Sublingual Tablet) 0.4 mg SUBLINGUAL Q5M PRN PRN Reason: chest pain Nitroglycerin (Nitroglycerin 1 Gm/Inch Oint Pkt) 1 inch TOPICAL Q6H [facility] Last Admin: 10/25/20 15:41 Dose: Not Given Documented by: Ondansetron HCl (Ondansetron 2 Mg/Ml Sdv 2 Ml) 4 mg IVP Q8H PRN PRN Reason: vomiting, or N/V if npo Pantoprazole Sodium (Pantoprazole Dr 40 Mg Tablet) 40 mg PO DAILY [facility] Last Admin: 10/25/20 08:03 Dose: 40 mg Documented by: Spironolactone (Spironolactone 25 Mg Tablet) 12.5 mg PO DAILY [facility] Last Admin: 10/25/20 08:02 Dose: 12.5 mg Documented by: Tiotropium [place] (Tiotropium 18 Mcg Mdi) 18 mcg INHALATION DAILY [facility] Last Admin: 10/25/20 11:17 Dose: 1 puff Documented by: Venlafaxine HCl (Venlafaxine Er (24hr) 150 Mg Capsule) 150 mg PO DAILY@08 [facility] Last Admin: 10/25/20 08:03 Dose: 150 mg Documented by: Vitals/I&O/Wt Last Vital Signs Temp 97.3 F L 10/26/20 08:00 Pulse 67 10/26/20 09:16 Resp 18 10/26/20 09:15 BP 99/48 10/26/20 08:00 Pulse Ox 98 10/26/20 09:15 10/25/20 10/26/20 10/26/20 22:59 06:59 14:59 Intake Total 390 / 870 Output Total 250 / 250 350 / 600 100 / 100 Balance 140 / 620 -350 / 270 -100 / -100 Weight last 48 hrs Weight 57.561 kg Weight 58.287 kg Physical Exam HENMT: COMMON NORMALS: normocephalic and atraumatic HEAD & SCALP: normocephalic and atraumatic Resp: COMMON NORMALS: normal respiratory effort EFFORT & INSPECTION: Yes symmetric chest movement OTHER: Decreased air entry at base, minimal, bilateral basal crackles present Cardio: COMMON NORMALS: No rub (Cardio) GI: COMMON NORMALS: non-tender and no masses RECTAL EXAM: deferred Extremity: COMMON NORMALS: no pedal edema Data : 10/26/20 04:35 10/26/20 04:35 A&P Assessment and plan (1) NSTEMI (non-ST elevated myocardial infarction): Had significant troponin delta both at 2 h as well as at 6h. 2 D ECHO : LVEF: Severely depressed , (20 to 25% ) . Severe global hypokinesia , grade 2 diastolic dysfunction, mild PAH. Lovenox 50 mg sc q12 h daily Aspirin 81 mg oral daily plavix 75 mg oral daily Atorvastatin 40 mg oral daily IMDUR 10 MG PO DAILY Nitro paste 1 inch q6h daily S/p: PCI to LCx (final cath report awaited) Status: Acute (2) Atrial fibrillation: On amidarone 400 mg PO BID Metoprolol tartrate 25 mg p.o. every 12 Received one dose of Digoxin 250 mcg I.V on 10/24 On Eliquis at home. Currently on Hold . TELE Status: Acute Qualifiers: Atrial fibrillation type: unspecified chronic Qualified Code(s): I48.20 - Chronic atrial fibrillation, unspecified (3) Type 2 diabetes mellitus: MDSSI FSG Status: Acute Qualifiers: Diabetes mellitus complication status: without complication Diabetes mellitus watermelon inspector insulin use: without longterm use Qualified Code(s): E11.9 - Type 2 diabetes mellitus without complications (4) COPD (chronic obstructive pulmonary disease): Duo Nebs q6h Solumedrol 40 mg I.V Daily.Will DC from am Spirivia 18 mcg inhalation daily Trelegy 1 puff daily and Pulmicort nebulization 0.5 mg twice daily and Xopenex nebulization every 6 hours as needed. Pulmonary rehab on discharge Appreciate pulmonary recs Patient will follow Dr. Dawson Garcia as an output. Status: Acute Qualifiers: COPD type: COPD with acute exacerbation Qualified Code(s): J44.1 - Chronic obstructive pulmonary disease with (acute) exacerbation (5) Congestive heart failure: Acute on chronic decompensated HFrEF : Continue Lasix 40 mg I.V Daily. Spironolactone 12.5 mg p.o. Continue M.T : 25 MG Q12 H Daily I/O Daily weight Status: Acute Qualifiers: Heart failure chronicity: acute on chronic Heart failure type: systolic Qualified Code(s): I50.23 - Acute on chronic systolic (congestive) heart failure (6) CAD (coronary artery disease): S/P Stent to LAD, RCA , LCX Status: Acute Qualifiers: Associated angina: with unstable angina Coronary Disease-Associated Artery/Lesion type: unspecified vessel or lesion type [place] vs. transplanted heart: [place] heart Qualified Code(s): I25.110 - Atherosclerotic heart disease of [place] coronary artery with unstable angina pectoris (7) PVD (peripheral vascular disease): Status: Acute Additional A&P Information DVT PPX: On Lovenox Code status :Full code Disposition :Home Attestations Medical Necessity Statement*: Patient needs to be in hospital for the management of NSTEMI Coding Level of Care Code Acute Blood Coordinator for [facility] Fwd Exam Detailed Diagnoses NSTEMI (non-ST elevated myocardial infarction) I21.4 Atrial fibrillation I48.20 Atrial fibrillation type: unspecified chronic Type 2 diabetes mellitus E11.9 Diabetes mellitus complication status: without complication Diabetes mellitus longterm insulin use: without watermelon inspector use COPD (chronic obstructive pulmonary disease) J44.1 COPD type: COPD with acute exacerbation Congestive heart failure I50.23 Heart failure chronicity: acute on chronic Heart failure type: systolic CAD (coronary artery disease) I25.110 Associated angina: with unstable angina Coronary Disease-Associated Artery/Lesion type: unspecified vessel or lesion type [place] vs. transplanted heart: [place] heart PVD (peripheral vascular disease) I73.9
[2020-10-26 11:59] LABS: Glucose Point of Care 144 mg/dL (70-110)
--- NOTE | 2020-10-26 16:00 | PC.NURSE ---
TR band removed per protocol no hematoma or bleeding noted patient tolerated well
[2020-10-26 17:11] LABS: Glucose Point of Care 436 mg/dL (70-110)
--- NOTE | 2020-10-26 17:16 | PM.PN ---
Subjective Subjective: Interval history: Patient underwent coronary angiography that showed patent prior stents in the LAD and RCA, however she had 70-80% stenosis in the proximal left circumflex artery. Patient underwent successful revascularization with LANI x 2. Patient's LVEDP was high indicating volume overload. Vitals/I&O/Wt Last Vital Signs Temp 99.2 F 10/26/20 15:25 Pulse 71 10/26/20 16:15 Resp 6 L 10/26/20 16:15 BP 105/55 10/26/20 16:30 Pulse Ox 94 10/26/20 15:25 10/26/20 10/26/20 10/26/20 06:59 14:59 22:59 Intake Total 120 / 120 Output Total 350 / 600 1800 / 1800 500 / 2300 Balance -350 / 270 -1680 / -1680 -500 / -2180 Weight last 48 hrs Weight 126 lb 14.4 oz Weight 128 lb 8 oz Physical Exam Narrative: EXAM NARRATIVE: GENERAL: The patient is alert and oriented times three. Not in any acute distress. Slightly tachypneic HEENT: No significant pallor, icterus or lymphadenopathy. Pupils are symmetrical NECK: Trachea appears to be central. No masses noted. No JVD or thyromegaly appreciated. No carotid bruit. RESPIRATORY: Chest is symmetrical. No intercostals muscle retraction or any accessory muscle activation. There is no chest wall tenderness. Breath sounds are heard bilaterally. Fine rales bilaterally at the bases. BREASTS: Deferred. HEART: The PMI is in the 5th left intercostals space just inside the midclavicular line. No palpable precordial events. First and the second heart sounds are normal. Soft S3 with no S4. No pericardial rub or any click heard. Short systolic murmur in the left sternal border. No diastolic murmurs. ABDOMEN: No vessel pulsations or distention. No tenderness. No organomegaly appreciated. No abdominal bruit. Bowel sounds are normally heard. : Deferred. RECTAL: Deferred. LYMPHATIC: No lymphadenopathy noted in the neck or groin. EXTREMITIES: No edema or cyanosis. No clubbing. The pulses are symmetrical bilaterally. The radial, femoral, dorsalis pedis and the posterior tibial pulses are palpated and was found to be in low volume and amplitude. MUSCULOSKELETAL: No acute joint deformities or swelling SKIN: There are no significant scars or skin rash noted. NEUROPSYCHIATRIC: The patient is alert and oriented x3. Appears to be in a good mood. The higher functions are grossly within normal limits. No tremors or rigidity noted. Data : 10/26/20 04:35 10/26/20 04:35 A&P Assessment and plan (1) NSTEMI (non-ST elevated myocardial infarction): Status: Acute (2) Unstable angina pectoris: Status: Acute (3) Atrial fibrillation: Status: Acute Qualifiers: Atrial fibrillation type: unspecified chronic Qualified Code(s): I48.20 - Chronic atrial fibrillation, unspecified (4) COPD (chronic obstructive pulmonary disease): Status: Acute Qualifiers: COPD type: COPD with acute exacerbation Qualified Code(s): J44.1 - Chronic obstructive pulmonary disease with (acute) exacerbation (5) Congestive heart failure: Status: Acute Qualifiers: Heart failure chronicity: acute on chronic Heart failure type: systolic Qualified Code(s): I50.23 - Acute on chronic systolic (congestive) heart failure (6) CAD (coronary artery disease): Status: Acute Qualifiers: Coronary Disease-Associated Artery/Lesion type: unspecified vessel or lesion type [place] vs. transplanted heart: [place] heart Associated angina: with unstable angina Qualified Code(s): I25.110 - Atherosclerotic heart disease of [place] coronary artery with unstable angina pectoris (7) Ex-smoker for less than 1 year: Status: Acute (8) Pulmonary artery hypertension: Status: Acute Patient underwent coronary angiography today showing severe proximal LCx stenosis that was revascularized using DESx 2. Her LVEDP was high showing volume overload. Continue aspirin and Plavix. At the time of discharge, patient can be discharged on Plavix and Eliquis (which she is on for atrial fibrillation). Aspirin can be stopped at that time. Continue diuresis. Monitor I and Os and creatinine Given her low EF of 25%, will recommend arranging for LifeVest at time of discharge for sudden cardiac prevention. I tried calling patient's to give him update about the procedure but he could not be reached. Will attempt again tomorrow. Thank you for involving us with care of this patient. Cardiology will continue to follow. Please call with questions. Attestations Medical Necessity Statement*: Care expected to cross 2 midnights. Coding Level of Care Code Acute Classroom Technology Coach for g Fwd Diagnoses NSTEMI (non-ST elevated myocardial infarction) I21.4 Unstable angina pectoris I20.0 Atrial fibrillation I48.20 Atrial fibrillation type: unspecified chronic COPD (chronic obstructive pulmonary disease) J44.1 COPD type: COPD with acute exacerbation Congestive heart failure I50.23 Heart failure chronicity: acute on chronic Heart failure type: systolic CAD (coronary artery disease) I25.110 Coronary Disease-Associated Artery/Lesion type: unspecified vessel or lesion type [place] vs. transplanted heart: [place] heart Associated angina: with unstable angina Ex-smoker for less than 1 year Z78.9 Pulmonary artery hypertension I27.21
--- NOTE | 2020-10-26 20:06 | PC.NURSE ---
PT STATES THAT THEY ARE DOING MUCH BETTER. TR BAND IS OFF. THE DRESSING IS C/D/I. PT IS ALERT AND ORIENTATED. PT DENIES PAIN. WILL CONTINUE TO MONITOR.
[2020-10-26 21:19] LABS: Glucose Point of Care 414 mg/dL (70-110)
[2020-10-26] MEDS: aspirin 81 mg EC Tablet PO (23:20)
[2020-10-27] VITALS (13 sets, daily range): BP systolic 94–116; BP diastolic 45–61; PULSE 60–74; RESP 12–24; TEMP 36.2–36.6; O2SAT 93–99
[2020-10-27] MEDS: nitroglycerin 1 gm/inch oint Pkt 1 INCH TOPICAL (03:17)
[2020-10-27 03:52] LABS: Basophils % 0.1 %; Hematocrit 37.9 % (37.0-47.0); Lymphocytes # 1.8 10^3/uL (0.8-4.8); Lymphocytes % 14.9 %; Mean Corpuscular HGB Conc 31.7 g/dL (30.0-36.0); Mean Corpuscular Hemoglobin 29.5 pg (28.0-34.0); Mean Corpuscular Volume 93.1 fL (81-99); Mean Platelet Volume 12.1 fL (7.4-10.4); Monocytes # 1.4 10^3/uL (0.2-0.9); Monocytes % 12.2 %; Neutrophils # 8.54 10^3/uL (1.8-7.7); Nucleated Red Blood Cells % 0 %; Platelet Count 224 10^3/cmm (130-400); Red Blood Count 4.07 10^6/uL (4.1-5.3); Red Cell Distribution Width 15.6 % (12.1-15.1); White Blood Count 11.9 10^3/uL (4.0-10.0)
--- NOTE | 2020-10-27 05:44 | PC.NURSE ---
PT IS RESTING IN BED. PT DENIES PAIN. SITE IS C/D/I. WILL CONTINUE TO MONITOR.
[2020-10-27 06:37] LABS: Glucose Point of Care 147 mg/dL (70-110)
[2020-10-27] MEDS: metoprolol tartrate 25 mg Tablet PO (07:51)
[2020-10-27] MEDS: atorvastatin 40 mg Tablet PO (08:55)
[2020-10-27] MEDS: spironolactone 25 mg Tablet 12.5 MG PO (08:55)
[2020-10-27] MEDS: isosorbide mononitrate 20 mg Tablet 10 MG PO (08:55)
[2020-10-27] MEDS: venlafaxine ER (24HR) 150 mg Capsule PO (08:55)
[2020-10-27] MEDS: FUROsemide 10 mg/mL SDV 4mL 40 MG IVP (08:56)
[2020-10-27] MEDS: clopidogrel 75 mg Tablet PO (08:56)
[2020-10-27] MEDS: amiodarone 200 mg Tablet PO ×2 (08:56→17:26)
[2020-10-27] MEDS: pantoprazole DR 40 mg Tablet PO (08:56)
--- NOTE | 2020-10-27 09:55 | PM.PN ---
Subjective Subjective: Interval history: Patient is overall doing well. Denies complaints of chest pain, shortness of breath or palpitations. She underwent successful revascularization of the proximal LCx yesterday with LANI x 2. Right radial access site is normal. Vitals/I&O/Wt Last Vital Signs Temp 97.9 F 10/27/20 07:00 Pulse 68 10/27/20 08:00 Resp 21 H 10/27/20 08:00 BP 116/58 10/27/20 08:00 Pulse Ox 94 10/27/20 07:00 10/26/20 10/27/20 10/27/20 22:59 06:59 14:59 Intake Total 240 / 360 360 / 360 Output Total 500 / 2300 600 / 2900 Balance -260 / -1940 -600 / -2540 360 / 360 Weight last 48 hrs Weight 125 lb 8 oz Weight 126 lb 14.4 oz Physical Exam Narrative: EXAM NARRATIVE: GENERAL: Patient is alert, awake and oriented x3. [] NECK: No jugular vein distension. [] HEENT: No cyanosis. No icterus. No pallor. [] HEART: Regular S1 and S2. No murmur, rub or gallop. [] LUNGS: Has mild crackles. [] ABDOMEN: Soft, nontender and nondistended. Positive bowel sounds. No guarding, rebound or tenderness. [] CENTRAL NERVOUS SYSTEM: Grossly nonfocal. [] EXTREMITIES: Lower extremities with no edema bilaterally. Pulses palpable in the lower extremities, both dorsalis pedis and posterior tibial. [] Data : 10/27/20 03:10 10/27/20 09:25 A&P Assessment and plan (1) NSTEMI (non-ST elevated myocardial infarction): Status: Acute (2) Unstable angina pectoris: Status: Acute (3) Atrial fibrillation: Status: Acute Qualifiers: Atrial fibrillation type: unspecified chronic Qualified Code(s): I48.20 - Chronic atrial fibrillation, unspecified (4) COPD (chronic obstructive pulmonary disease): Status: Acute Qualifiers: COPD type: COPD with acute exacerbation Qualified Code(s): J44.1 - Chronic obstructive pulmonary disease with (acute) exacerbation (5) Congestive heart failure: Status: Acute Qualifiers: Heart failure chronicity: acute on chronic Heart failure type: systolic Qualified Code(s): I50.23 - Acute on chronic systolic (congestive) heart failure (6) CAD (coronary artery disease): Status: Acute Qualifiers: Coronary Disease-Associated Artery/Lesion type: unspecified vessel or lesion type [place] vs. transplanted heart: [place] heart Associated angina: with unstable angina Qualified Code(s): I25.110 - Atherosclerotic heart disease of [place] coronary artery with unstable angina pectoris (7) Ex-smoker for less than 1 year: Status: Acute (8) Pulmonary artery hypertension: Status: Acute Patient underwent coronary angiography yesterday showing severe proximal LCx stenosis that was revascularized using DESx 2. Her LVEDP was high showing volume overload. Continue aspirin and Plavix. At the time of discharge, patient can be discharged on Plavix and Eliquis (which she is on for atrial fibrillation). Aspirin can be stopped at that time. Continue diuresis. Monitor I and Os and creatinine Given her low EF of 25%, will recommend arranging for LifeVest at time of discharge for sudden cardiac prevention as she does not have ICD in place. Can switch to Amiodarone 200mg BID at discharge and after 1 week, can go to 200mg daily. Continue Spirinolactone and Lasix. Thank you for involving us with care of this patient. Cardiology will continue to follow. Please call with questions. Attestations Medical Necessity Statement*: Care expected to cross 2 midnights. Coding Level of Care Code Acute Special Systems Technician for [facility] Fwd Diagnoses NSTEMI (non-ST elevated myocardial infarction) I21.4 Unstable angina pectoris I20.0 Atrial fibrillation I48.20 Atrial fibrillation type: unspecified chronic COPD (chronic obstructive pulmonary disease) J44.1 COPD type: COPD with acute exacerbation Congestive heart failure I50.23 Heart failure chronicity: acute on chronic Heart failure type: systolic CAD (coronary artery disease) I25.110 Coronary Disease-Associated Artery/Lesion type: unspecified vessel or lesion type [place] vs. transplanted heart: [place] heart Associated angina: with unstable angina Ex-smoker for less than 1 year Z78.9 Pulmonary artery hypertension I27.21
[2020-10-27] MEDS: ipratropium-albuterol 3 mL Neb INHALATION ×2 (09:58→14:56)
[2020-10-27 10:05] LABS: Anion Gap 15.1 (5-19); Blood Urea Nitrogen 36 mg/dL (8-23); Calcium 8.1 mg/dL (8.5-10.5); Carbon Dioxide 28 mmol/L (22-29); Chloride 100 mmol/L (98-107); Glucose 261 mg/dL (65-115); Osmolality Calculated 307 mOsm/kg (285-295); Potassium 3.1 mmol/L (3.5-5.1); Sodium 140 mmol/L (136-145)
[2020-10-27 11:56] LABS: Glucose Point of Care 352 mg/dL (70-110)
--- NOTE | 2020-10-27 12:07 | P.DS_ITS ---
Discharge Providers Date of Admission: 10/22/20 16:10 Date of Discharge: October 27, 2020 Attending Provider at Admission: Guanako Mariano MD Attending Provider at Discharge: Joe Miles MD Primary Care Provider: Karen Meza Diagnoses at Discharge Discharge Diagnosis (1) NSTEMI (non-ST elevated myocardial infarction): Status: Acute (2) Unstable angina pectoris: Status: Acute (3) Atrial fibrillation: Status: Acute Qualifiers: Atrial fibrillation type: unspecified chronic Qualified Code(s): I48.20 - Chronic atrial fibrillation, unspecified (4) COPD (chronic obstructive pulmonary disease): Status: Acute Qualifiers: COPD type: COPD with acute exacerbation Qualified Code(s): J44.1 - Chronic obstructive pulmonary disease with (acute) exacerbation (5) Congestive heart failure: Status: Acute Qualifiers: Heart failure chronicity: acute on chronic Heart failure type: systolic Qualified Code(s): I50.23 - Acute on chronic systolic (congestive) heart failure (6) CAD (coronary artery disease): Status: Acute Qualifiers: Associated angina: with unstable angina Coronary Disease-Associated Artery/Lesion type: unspecified vessel or lesion type [place] vs. transplanted heart: [place] heart Qualified Code(s): I25.110 - Atherosclerotic heart disease of [place] coronary artery with unstable angina pectoris (7) Ex-smoker for less than 1 year: Status: Acute (8) Pulmonary artery hypertension: Status: Acute Reason for Visit Reason for Visit: ALDO BRUNO BREATHING Hospital Course Hospital Course Germaine is a 80-year-old white female who presented on October 22 with chest discomfort, atrial fibrillation, and congestive heart failure. Cardiology was consulted on October 24, concerned regarding an acute coronary event. Echocardiogram demonstrated decrease in ejection fraction with EF of 20 to 25%. Cardiology intervened with coronary angiogram on October 26 after appropriate diuresis and stabilization of the patient. 2 drug-eluting circumflex stents were placed. The patient was also started on amiodarone which will be continued on discharge. A LifeVest will try to be arranged by cardiology secondary to her low EF. Pulmonary also saw the patient secondary to COPD and some medications changes will be made. Follow-up with pulmonary will be arranged as well. She will discharge on 40 mg of Lasix twice a day, along with potassium and have a repeat BMP in 3 to 5 days. Physical Exam Narrative: EXAM NARRATIVE: General exam is no apparent distress Cardiovascular regular in rhythm without murmur. 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 request for service Routin e Exams 10/26/20 09:32 Taken CBC Auto Diff [Co mplete Blood Count w/Auto] AM LABS Lab 10/28/20 04:00 Ordered Labs from last 24 hours 10/27/20 10/27/20 10/27/20 11:42 09:25 06:25 WBC RBC Hgb Hct MCV MCH MCHC RDW Plt Count MPV Neut % (Auto) Lymph % (Auto) [place] % (Auto) Eos % (Auto) Baso % (Auto) Neut # (Auto) Lymph # (Auto) [place] # (Auto) Eos # (Auto) Baso # (Auto) Nucleated RBC % (a uto) Nucleated RBCs # Sodium 140 Potassium 3.1 L Chloride 100 Carbon Dioxide 28 Anion Gap 15.1 BUN 36 H Creatinine 1.2 H GFR Calculation Not Reportable Glucose 261 H POC Glucose 352 H 147 H Calculated Osmolal ity 307 H Calcium 8.1 L 10/27/20 10/26/20 10/26/20 03:10 20:58 16:56 WBC 11.9 H RBC 4.07 L Hgb 12.0 Hct 37.9 MCV 93.1 MCH 29.5 MCHC 31.7 RDW 15.6 H Plt Count 224 MPV 12.1 H Neut % (Auto) 72.0 Lymph % (Auto) 14.9 [place] % (Auto) 12.2 Eos % (Auto) 0.0 Baso % (Auto) 0.1 Neut # (Auto) 8.54 H Lymph # (Auto) 1.8 [place] # (Auto) 1.4 H Eos # (Auto) 0.0 Baso # (Auto) 0.0 Nucleated RBC % (a uto) 0 Nucleated RBCs # 0.0 Sodium Potassium Chloride Carbon Dioxide Anion Gap BUN Creatinine GFR Calculation Glucose POC Glucose 414 H 436 H Calculated Osmolal ity Calcium Vitals: Last Vital Signs Temp 97.2 F L 10/27/20 11:41 Pulse 68 10/27/20 11:41 Resp 17 10/27/20 11:41 BP 94/60 10/27/20 11:41 Pulse Ox 96 10/27/20 11:41 Discharge Plan Discharge Patient Disposition: Home Condition: Stable Prescriptions: New metoprolol tartrate 25 mg Tablet 25 mg PO Q12H Qty: 60 RF: 0 atorvastatin 40 mg Tablet 40 mg PO DAILY Qty: 30 RF: 0 isosorbide mononitrate 20 mg Tablet 10 mg PO DAILY Qty: 30 RF: 0 budesonide [Pulmicort] 0.5 mg/2 mL suspension for nebulization 0.5 mg inhalation BID Qty: 60 RF: 0 furosemide [Lasix] 40 mg tablet 40 mg PO BID Qty: 60 RF: 0 potassium chloride 20 mEq tablet extended release 20 meq PO BID Qty: 60 RF: 0 pantoprazole 40 mg Tablet,Delayed Release (Dr/Ec) 40 mg PO DAILY Qty: 30 RF: 0 clopidogrel 75 mg Tablet 75 mg PO DAILY Qty: 30 RF: 0 amiodarone [Pacerone] 200 mg Tablet 200 mg PO BID Qty: 60 RF: 0 Trelegy Ellipta 200-62.5-25 mcg blister with device 1 inh inhalation Q24H Qty: 28 RF: 0 levalbuterol HCl [Xopenex] 1.25 mg/3 mL solution for nebulization 1.25 mg inhalation Q6H PRN (Reason: shortness of breath or wheezing) Qty: 75 RF: 0 Continued nitroglycerin [Nitrostat] 0.4 mg tablet, sublingual 0.4 mg SUBLINGUAL Q5M PRN (Reason: chest pain) 30 Days Qty: 25 RF: 6 spironolactone 25 mg Tablet 12.5 mg PO DAILY RF: 0 venlafaxine 150 mg tablet extended release 24hr 150 mg PO DAILY@08 RF: 0 Trulicity 0.75 mg/0.5 mL Pen Injector 0.75 mg SUBCUT Q7D RF: 0 Eliquis 5 mg tablet 5 mg PO BID@09,21 RF: 0 Discontinued albuterol sulfate 90 mcg/actuation Hfa Aerosol Inhaler 1 inh INHALATION QID PRN (Reason: Shortness Of Breath) RF: 0 Spiriva with HandiHaler 18 mcg Capsule, W/Inhalation Device 1 cap INHALATION DAILY@09 RF: 0 aspirin [Adult Low Dose Aspirin] 81 mg tablet,delayed release (DR/EC) 81 mg PO BEDTIME@23 RF: 0 Discharge Orders: Discharge Order (Routine); Ordered 10/27/20 Ordered By: Joe Miles Referrals: SenthilrJulius MD [Physician] - 2 weeks Gonzalez Swain M.D [Physician] - 4-7 days (Further work-upComplete review of system was not possible cardiology nurse practitioner next week, 3 weeks.) Karen Meza PA [Primary Care Provider] - 4-7 days (CBC, BMP, magnesium level 3 to 5 days) Discharge Diet: Cardiac Discharge Activity: Increase activity as tolerated Patient Instructions: Left Heart Catheterization (DC) Activity Restrictions/Additional Instructions: Take amiodarone 200 mg twice daily for 1 week then 200 mg once daily. Return for any chest discomfort Take medicine as prescribed Cardiology to review discharge orders regarding LifeVest prior to discharge. Discharge Attestations Time Spent in Discharge Care*: greater than 30 min Quality Metrics Clinical Quality Measures During this hospital stay, did patient experience: AMI Clinical Trial Participant: No Contraindication to aspirin (AMI): Other (Discharged on Eliquis and Plavix) Contraindication to statin: Statin prescribed Contraindication to PCI: PCI performed Coding Level of Care Code Acute Workforce Advisor for [facility] Diagnoses NSTEMI (non-ST elevated myocardial infarction) I21.4 Unstable angina pectoris I20.0 Atrial fibrillation I48.20 Atrial fibrillation type: unspecified chronic COPD (chronic obstructive pulmonary disease) J44.1 COPD type: COPD with acute exacerbation Congestive heart failure I50.23 Heart failure chronicity: acute on chronic Heart failure type: systolic CAD (coronary artery disease) I25.110 Associated angina: with unstable angina Coronary Disease-Associated Artery/Lesion type: unspecified vessel or lesion type [place] vs. transplanted heart: [place] heart Ex-smoker for less than 1 year Z78.9 Pulmonary artery hypertension I27.21
[2020-10-27] MEDS: potassium chloride ER 20 mEq Tablet 40 MEQ PO (12:25)
[2020-10-27 17:23] LABS: Glucose Point of Care 62 mg/dL (70-110)
[2020-10-27 17:23] LABS: Glucose Point of Care 57 mg/dL (70-110)
--- NOTE | 2020-10-27 19:23 | PC.NURSE ---
Patient discharged to home. Instruction provided follow up appointments, new medications and site care. Patient verbalized complete understanding. Spouse at bedside. Stent Card given to patient. Patient taken by wheelchair to private vehicle. Belongings accounted for and verified by patient.
[2020-10-29 08:38] LABS: Glucose Point of Care 184 mg/dL (70-110)
== END 2020-10-27 19:29 | disposition home or self-care (01) | DRG 246 ==
LOC: ER 16:53 → CSU 18:31
PROVIDERS: Internal Medicine; Internal Medicine Cardiovascular Disease; Admitting Provider Internal Medicine; Emergency Provider Family Medicine; PCP Physician Assistant; Visit Provider Internal Medicine
PROC: 027035Z Dilation of Coronary Artery, One Artery with Two Drug-eluting Intraluminal Devices, Percutaneous Approach (ICD-10-PCS; principal; 2020-10-26 10:00)
PROC: 027035Z Dilation of Coronary Artery, One Artery with Two Drug-eluting Intraluminal Devices, Percutaneous Approach (ICD-10-PCS; 2020-10-26 10:00)
DX: T82.855A Stenosis of coronary artery stent, initial encounter (principal); I50.23 Acute on chronic systolic (congestive) heart failure; I21.A1 Myocardial infarction type 2; I42.9 Cardiomyopathy, unspecified; J44.1 Chronic obstructive pulmonary disease with (acute) exacerbation; I48.20 Chronic atrial fibrillation, unspecified; I25.110 Atherosclerotic heart disease of native coronary artery with unstable angina pectoris; I27.20 Pulmonary hypertension, unspecified; Z87.891 Personal history of nicotine dependence; Z79.01 Long term (current) use of anticoagulants; Z79.82 Long term (current) use of aspirin; E11.51 Type 2 diabetes mellitus with diabetic peripheral angiopathy without gangrene; Y65.8 Other specified misadventures during surgical and medical care; Y92.009 Unspecified place in unspecified non-institutional (private) residence as the place of occurrence of the external cause; Z99.81 Dependence on supplemental oxygen; Z95.5 Presence of coronary angioplasty implant and graft; E78.5 Hyperlipidemia, unspecified; I25.2 Old myocardial infarction; I44.7 Left bundle-branch block, unspecified; I11.0 Hypertensive heart disease with heart failure
CPT/HCPCS: 12345; 36415; 36416; 71045; 80048; 80053; 82962; 83735; 83880; 84484; 85025; 85347; 85378; 85610; 87426; 93005; 93306; 93452; 94640; 96372; 99282; C1725; C1769; C1874; C1887; C1894; C9600; J1160; J1200; J1644; J1650; J1815; J1940; J2250; J2920; J2930; J3010; J3490; J7030; J7040; Q9967

== ENCOUNTER → 2020-11-02 15:07 | Outpatient (BNVA) | payer MEDICARE, SELFPAY | PROVIDERS: PCP Physician Assistant; Visit Provider Nurse Practitioner Family | DX: I25.110 Atherosclerotic heart disease of native coronary artery with unstable angina pectoris (principal) | CPT/HCPCS: 80048 ==

== ENCOUNTER → 2020-11-29 12:34 | Outpatient (BNVA) | payer MEDICARE, SELFPAY | PROVIDERS: PCP Physician Assistant; Visit Provider Internal Medicine Pulmonary Disease | DX: R06.02 Shortness of breath (principal) | CPT/HCPCS: 87635 ==

== ENCOUNTER 2020-12-05 08:03 | Outpatient (CLI) | payer MEDICARE, SELFPAY ==
--- NOTE | 2020-12-05 13:01 | PFTS_ITS ---
Date of Study:12/05/20 Date of Dictation: MECHANICS: Forced vital capacity (FVC) is normal. Forced expiratory volume in one second (FEV1) is normal. FEV1/FVC is normal. FLOW VOLUME LOOP: Reduced right lower lung volumes with scooping. LUNG VOLUMES: Not measured DIFFUSING CAPACITY FOR CARBON MONOXIDE: Moderately reduced. INTERPRETATION: The postbronchodilator spirometry is normal. There is no significant postbronchodilator response.. The patient has evidence of airflow limitation especially at lower lung volumes which could be secondary to smoking and small airways disease. Gas exchange (DLCO) is moderately reduced. MTDD
== END 2020-12-05 08:04 | disposition home or self-care (01) ==
PROVIDERS: PCP Physician Assistant; Visit Provider Internal Medicine Pulmonary Disease
DX: J44.1 Chronic obstructive pulmonary disease with (acute) exacerbation (principal)
CPT/HCPCS: 94010; 94618; 94729; J7611

== ENCOUNTER 2021-01-20 13:21 | Outpatient (CLI) | payer MEDICARE, SELFPAY ==
--- NOTE | 2021-01-20 13:30 | USCV_ITS ---
Germaine Perez Age: 80 Gender: F : 1940 Exam Date: 01/20/2021 14:07 Ordering Phys: Mateo Montes MD Technologist: Praveena Saldana [place] [facility] [place]: shortness of breath BP: / HR: 91 Rhythm: Sinus Technical Quality: Adequate MEASUREMENTS (Male / Female) Normal Values 2D ECHO LV Diastolic Diameter PLAX 4.9 cm 4.2 - 5.9 / 3.9 - 5.3 cm LV Systolic Diameter PLAX 4.3 cm LV Chamber Size 4.7 cm IVS Diastolic Thickness 1.3 cm 0.6 - 1.0 / 0.6 - 0.9 cm IVS Systolic Thickness 2.0 cm LVPW Diastolic Thickness 1.7 cm 0.6 - 1.0 / 0.6 - 0.9 cm LVPW Systolic Thickness 1.9 cm RV Chamber Size 2.5 cm LVOT Diameter 2.0 cm LV Ejection Fraction 2D Teich 25.7 % LV Ejection Fraction MOD 2C 30.5 % LV Ejection Fraction 2C AL 30.2 % LA Diameter 4.2 cm LA Width 3.4 cm LA Height 4.2 cm RA Width 2.8 cm RA Height 2.8 cm M-MODE LV Diastolic Diameter MM 6.1 cm 4.2 - 5.9 / 3.9 - 5.3 cm LV Systolic Diameter MM 5.7 cm LV Ejection Fraction MM Teich 14.1 % IVS Diastolic Thickness MM 1.0 cm 0.6 - 1.0 / 0.6 - 0.9 cm IVS Systolic Thickness MM 1.1 cm LVPW Diastolic Thickness MM 0.9 cm 0.6 - 1.0 / 0.6 - 0.9 cm LVPW Systolic Thickness MM 1.2 cm Aortic Annulus Diameter 2.6 cm LA Ao Ratio MM 1.7 MV E Point Septal Separation 1.8 cm FINDINGS Left Ventricle Moderately increased left ventricular cavity size. Severely decreased left ventricular systolic function. Global left ventricular hypokinesis. Left ventricular ejection fraction is estimated at 30 %. Right Ventricle Right Atrium Left Atrium Mildly increased left atrial size. Mitral Valve Aortic Valve Severe aortic valve calcification. In the absence of Doppler data cannot assess aortic valve Tricuspid Valve Pulmonic Valve Pericardium Aorta CONCLUSIONS 1-Moderately increased left ventricular cavity size. Severely decreased left ventricular systolic function. Global left ventricular hypokinesis. Left ventricular ejection fraction is estimated at 30 %. 2-Mildly increased left atrial size. 3-Severe aortic valve calcification. In the absence of Doppler data cannot assess aortic valve. 4-Incomplete study please redo the study with Doppler data to assess valvular function 5-Due to incomplete study cannot compare with the prior echocardiogram. Mateo Montes MD (Electronically Signed) Final Date: 23 January 2021 20:53 S
== END 2021-01-20 13:22 | disposition home or self-care (01) ==
PROVIDERS: PCP Physician Assistant; Visit Provider Internal Medicine Cardiovascular Disease
DX: R06.02 Shortness of breath (principal); I70.0 Atherosclerosis of aorta
CPT/HCPCS: 93308

== ENCOUNTER 2021-02-28 13:44 | Outpatient (CLI) | payer MEDICARE, BC, SELFPAY ==
--- NOTE | 2021-02-28 13:48 | USCV_ITS ---
Germaine Perez Age: 80 Gender: F : 1940 Exam Date: 02/28/2021 13:49 Ordering Phys: Karen Meza Technologist: Beulah Simpson Exam Location: [facility] – [place] Indication: Claudication of lower extremity RIGHT LEFT Brachial 100.00 mmHg Brachial 106.00 mmHg Pressure (mmHg) Waveform Pressure (mmHg) Waveform 128.00 High Thigh 122.00 112.00 Below Knee 112.00 92.00 PROGRAM MANAGER SLP 102.00 115.00 DPA 113.00 1.08 Ankle/Brachial Index 1.07 Pre-Exercise Toe Pressure 56.00 87.00 0.82 Pre-Exercise Toe/Brachial Index 0.53 FINDINGS Normal resting ABIs bilaterally Normal resting TBI on the right side Slightly diminished resting TBI on the left side CONCLUSIONS 1. Features suggestive of mild peripheral artery disease on the left side. 2. No significant arterial obstruction on the right side Dr Sanjeev White MD [facility] (Electronically Signed) Final Date: 28 Feb 2021 19:41 S
== END 2021-02-28 13:45 | disposition home or self-care (01) ==
LOC: RAD 13:46
PROVIDERS: PCP Physician Assistant; Visit Provider Physician Assistant
DX: I73.9 Peripheral vascular disease, unspecified (principal)
CPT/HCPCS: 87635; 93923

== ENCOUNTER 2021-03-06 07:07 | Day surgery (SDC) | payer MEDICARE, BC, SELFPAY ==
[2021-03-03 10:54] VITALS: BMI 17.6
[2021-03-03 11:18] LABS: Add Urine Microscopic? NO; Charge for UA Resulting for Rev
[2021-03-03 11:23] LABS: Bilirubin Urine Neg (Negative); Blood Urine Neg (Negative); Glucose Urine UA 4+ (Normal); Ketones Urine Negative (Negative); Leukocyte Esterase Urine Negative (Negative); Nitrate Urine Negative (Negative); Protein Urine Neg (Negative); Specific Gravity, Urine 1.005 (1.005-1.030); Urine Appearance Clear (CLEAR); Urine Color Straw (Yellow); Urobilinogen Urine Norm (Negative); pH Urine 5 (5-7)
[2021-03-03 11:25] LABS: Basophils # 0.1 10^3/uL (0.0-0.1); Basophils % 0.6 %; Eosinophils % 0.1 %; Hematocrit 38.7 % (37.0-47.0); Hemoglobin 12.2 g/dL (11.5-15.3); Lymphocytes # 1.5 10^3/uL (0.8-4.8); Lymphocytes % 18.3 %; Mean Corpuscular HGB Conc 31.5 g/dL (30.0-36.0); Mean Corpuscular Hemoglobin 29.7 pg (28.0-34.0); Mean Corpuscular Volume 94.2 fL (81-99); Mean Platelet Volume 11.5 fL (7.4-10.4); Monocytes # 0.7 10^3/uL (0.2-0.9); Monocytes % 8.7 %; Neutrophils # 5.72 10^3/uL (1.8-7.7); Neutrophils % 71.8 %; Nucleated Red Blood Cells % 0 %; Platelet Count 238 10^3/cmm (130-400); Red Blood Count 4.11 10^6/uL (4.1-5.3); Red Cell Distribution Width 14.4 % (12.1-15.1)
[2021-03-03 11:32] LABS: INR 1.48 (0.8-1.2)
[2021-03-03 11:37] LABS: Anion Gap 13.4 (5-19); Blood Urea Nitrogen 20 mg/dL (8-23); Calcium 9.4 mg/dL (8.5-10.5); Carbon Dioxide 31 mmol/L (22-29); Chloride 98 mmol/L (98-107); Glucose 102 mg/dL (65-115); Osmolality Calculated 289 mOsm/kg (285-295); Potassium 4.4 mmol/L (3.5-5.1); Sodium 138 mmol/L (136-145)
--- NOTE | 2021-03-03 13:09 | ANES.PREANE2 ---
Pre-Anesthetic Assessment Pre-Anesthetic Assessment: Height/Weight: Height 1.6 m Weight 45.359 kg Preop Diagnosis: Cardiomyopathy Proposed Procedure: Operation Date: 03/06/21 08:30 Proposed Procedures p Defibrillator Placement(Not Applicable) - Tejas Ba MD Was Beta Jessie taken within 24 hours: Yes Was Clonidine taken within 24 hours: N/A Social: Social History: Tobacco and No alcohol Exam: Pre-Anes Outpt Exam: alert, oriented x 3 and regular rate & rhythm Airway: Submandibular: WNL Cervical ROM: WNL MP: 2 Dentition: Full Pulmonary: Pulmonary: COPD (Home O2) Comments: PulmHTN, LBBB CV/HEM: CV/HEM: Afib, CAD, CHF (EF 30%), HTN, KS and PVD Comments: Anticoagulation GI: GI: GERD Anesthetic Plan: ASA status: 4 Anesthesia: MAC Risk of > 500 ml blood loss (7ml/kg in children): No PFSH Anesthesia PFSH: Medical History CAD (coronary artery disease) Cardiomyopathy COPD (chronic obstructive pulmonary disease) History of heart attack Hyperlipemia Increase to high intensity statin Left bundle branch block PVD (peripheral vascular disease) Type 2 diabetes mellitus Surgical History Hx of cardiac cath 2001: Stent placement to RCA July 2012: Stent placement to LAD with noted 60% proximal LCx lesion Hx of heart artery stent Hx of hysterectomy S/P cataract surgery S/P knee surgery S/P trigger finger release Family History Denies family history of Diabetes CAD (coronary artery disease) Clotting disorder Dementia Hyperlipidemia Psychiatric illness Chronic kidney disease (CKD) Suicide Anesthesia complication Bleeding disorder Family history of premature coronary artery disease Lung disease Cancer Hypertension Stroke Social History Smoking and tobacco status: former smoker Quit status (tobacco): has quit using tobacco Year quit tobacco: 2019 [id number] Second hand smoke exposure: No Smoking risk assessment/counseling performed?: Yes Alcohol intake: never Lives independently: Yes Household members: spouse Housing: House Marital status: Current occupational status: retired Pets and animals: Yes History of recent travel: No Current gender identity: Female Data Anesthesia CBC & Chem 7: 03/03/21 11:04 03/03/21 11:04 Other Labs: Laboratory Results - last 48 hr 03/03/21 03/03/21 03/03/21 11:04 11:04 11:04 WBC 8.0 RBC 4.11 Hgb 12.2 Hct 38.7 MCV 94.2 MCH 29.7 MCHC 31.5 RDW 14.4 Plt Count 238 MPV 11.5 H Neut % (Auto) 71.8 Lymph % (Auto) 18.3 [place] % (Auto) 8.7 Eos % (Auto) 0.1 Baso % (Auto) 0.6 Neut # (Auto) 5.72 Lymph # (Auto) 1.5 [place] # (Auto) 0.7 Eos # (Auto) 0.0 Baso # (Auto) 0.1 Nucleated RBC % (auto) 0 Nucleated RBCs # 0.0 PT 18.30 H INR 1.48 H Sodium 138 Potassium 4.4 Chloride 98 Carbon Dioxide 31 H Anion Gap 13.4 BUN 20 Creatinine 0.9 GFR Calculation Not Reportable Glucose 102 Calculated Osmolality 289 Calcium 9.4 Urine Color Urine Appearance Urine pH Ur Specific [place] Urine Protein Urine Glucose (UA) Urine Ketones Urine Blood Urine Nitrate Urine Bilirubin Urine Urobilinogen Ur Leukocyte Esterase 03/03/21 11:05 WBC RBC Hgb Hct MCV MCH MCHC RDW Plt Count MPV Neut % (Auto) Lymph % (Auto) [place] % (Auto) Eos % (Auto) Baso % (Auto) Neut # (Auto) Lymph # (Auto) [place] # (Auto) Eos # (Auto) Baso # (Auto) Nucleated RBC % (auto) Nucleated RBCs # PT INR Sodium Potassium Chloride Carbon Dioxide Anion Gap BUN Creatinine GFR Calculation Glucose Calculated Osmolality Calcium Urine Color Straw Urine Appearance Clear Urine pH 5 Ur Specific [place] 1.005 Urine Protein Neg Urine Glucose (UA) 4+ H Urine Ketones Negative Urine Blood Neg Urine Nitrate Negative Urine Bilirubin Neg Urine Urobilinogen Norm Ur Leukocyte Esterase Negative Cardiac Studies: No Data to Display
[2021-03-06] VITALS (10 sets, daily range): BP systolic 99–112; BP diastolic 49–63; PULSE 13–69; RESP 16–18; TEMP 36.4–37; O2SAT 94–100
--- NOTE | 2021-03-06 | SCC_ITS ---
Procedure Done: AICD implantation Implants: 1. AICD generator 2. Atrial and ventricular leads 215.7 seconds of fluoroscopic guidance, for a cumulative dose of 28.19 mGy, was provided to Dr. Ba by the radiology department. C-arm images of the chest were saved for the patient's permanent record. [facility]
--- NOTE | 2021-03-06 07:10 | SC_ITS ---
WS: [id number] C-ARM RADIOGRAPHS CHEST; 3 IMAGES HISTORY: AICD implantation COMPARISON: 03/06/2021 Intraoperative imaging of AICD placement. Lead wires project over the heart. SC/C-arm FL for Pacemaker IMPRESSION: Intraoperative imaging during AICD placement.
--- NOTE | 2021-03-06 07:10 | XR_ITS ---
WS: [id number] PORTABLE CHEST HISTORY: Preop for AICD implantation: History of COPD COMPARISON: 10/22/2020 Mild pulmonary hyperinflation. Mild interstitial thickening throughout both lungs has improved since 10/22/2020. Changes consistent with chronic interstitial lung disease. No focal pneumonia. No mass. N o pleural effusion or pneumothorax. Cardiac size: Normal. Mediastinum/Aorta: Mild atherosclerosis aorta. No osseous abnormality seen. XR/XR chest 1V portable [id number] IMPRESSION: 1. Chronic emphysema. No pneumonia. 2. Mild atherosclerosis aorta.
--- NOTE | 2021-03-06 07:18 | ECG_ITS ---
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 Measurements Intervals [place] Rate: 55 P: 86 OK: 205 QRS: -25 QRSD: 185 T: 155 QT: 549 QTc: 526 Interpretive Statements SINUS BRADYCARDIA LEFT BUNDLE BRANCH BLOCK [120+ ms QRS DURATION, 80+ ms Q/S IN V1/V2, 85+ ms R IN I/aVL/V5/V6] Compared to ECG 10/24/2020 23:32:30 No significant changes Electronically Signed On 03-07-2021 9:29:17 CDT by Elizabeth Degroot M.D. [id number]
--- NOTE | 2021-03-06 07:33 | P.ANESUD_ITS ---
Pre-Anesthetic Update Pre-Anesthetic Assessment: Date of Surgery/Procedure: 03/06/21 Preop Lay gnosis: Cardiomyopathy Proposed Procedure: Operation Date: 03/06/21 08:30 Proposed Procedures p Defibrillator Placement(Not Applicable) - Tejas Ba MD Any changes to Pre-Anesthetic Assessment?: No Last Intake: Intake Last Liquid Date 03/06/21 Last Liquid Time 06:00 Last Solid Date 03/05/21 Last Solid Time 14:00 Vitals: Temperature 97.7 F 03/06/21 07:30 Temperature Source Temporal Artery S can 03/06/21 07:30 Pulse Rate 56 L 03/06/21 07:30 Respiratory Rate 18 03/06/21 07:30 Blood Pressure 105/57 03/06/21 07:30 Blood Pressure Rosa n 73 03/06/21 07:30 Pulse Oximetry 100 03/06/21 07:30 Oxygen Delivery Me thod 03/06/21 07:30 Exam: Pre-Anes Outpt Exam: alert, oriented x 3, clear to auscultation bilaterally and regular rate & rhythm Additional Exam Findings (including area of procedure): diminished lung sounds Other Pertinent Information: Other Pertinent Information: Patient and family educted on elevated cardiac risk, informed of need for light anesthesia in setting of reduced EF Cardiac Studies: No Data to Display
[2021-03-06] MEDS: sodium chloride 0.9% 1,000 ML 30 ML IV (07:43)
[2021-03-06 07:49] LABS: Glucose Point of Care 125 mg/dL (70-110)
--- NOTE | 2021-03-06 08:04 | PM.HP ---
Providers/Chief Complaint Primary Care Provider: Karen Meza Chief Complaint: defibulator placement History of Present Illness Germaine Perez is a 80 year old female who I saw originally in my clinic for consultation back on February 02 for surgical evaluation for AICD implantation due to cardiomyopathy with ejection fraction of 30%. She is status post stenting to the RCA in 2001 and LAD stenting in 2011. She has hypertension, oxygen dependent COPD, diabetes mellitus, and tobacco use. She was hospitalized back on March 30 of last year for atrial fibrillation with RVR which converted spontaneously back to sinus rhythm. She presents today for planned AICD implantation. EKG this morning reveals a heart rate of 55 and bundle branch block. She states her last dose of Eliquis was on March 03. Review of Systems Const: Denies: fever(s) or chills Eyes: Denies: change in vision ENMT: Reports: nasal congestion; Denies: bleeding gums Card: Reports: palpitations and irregular heart rhythm Resp: Reports: dyspnea and non-productive cough; Denies: hemoptysis GI: Denies: abdominal pain, nausea, vomiting, hematemesis or coffee ground emesis Psych: Denies: anxiety or depression Papi/Lymph: Reports: easy bruising Medications/Allergies Home Medications Medication Instructions Recorded Confirmed Last Taken Type nitroglycerin 0.4 mg sublingual 0.4 mg SUBLINGUAL Q5M PRN 30 Days 12/31/19 03/03/21 10/22/20 Rx tablet #25 tab Trulicity 0.75 mg SUBCUT Q7D 03/30/20 03/03/21 03/04/21 History Eliquis 5 mg PO BID@04/08/20 03/03/21 03/03/21 History spironolactone 12.5 mg PO DAILY 10/22/20 03/06/21 03/06/21 History venlafaxine 150 mg PO DAILY@08 10/22/20 03/06/21 03/06/21 History amiodarone [Pacerone] 200 mg PO BID #60 tab 10/27/20 03/06/21 03/06/21 Rx atorvastatin 40 mg PO DAILY #30 tab 10/27/20 03/06/21 03/06/21 Rx clopidogrel 75 mg PO DAILY #30 tab 10/27/20 03/03/21 03/03/21 Rx furosemide [Lasix] 40 mg PO DAILY #30 tab 10/27/20 03/06/21 03/06/21 Rx isosorbide mononitrate 10 mg PO DAILY #30 tab 10/27/20 03/06/21 03/06/21 Rx metoprolol tartrate 25 mg PO Q12H #60 tab 10/27/20 03/06/21 03/06/21 Rx pantoprazole 40 mg PO DAILY #30 tab 10/27/20 03/06/21 03/06/21 Rx potassium chloride 20 meq PO DAILY #30 tab 10/27/20 03/06/21 03/06/21 Rx metformin 500 mg tablet 500 mg PO BID 11/02/20 03/06/21 03/06/21 History empagliflozin 25 mg tablet 25 mg PO DAILY 11/15/20 03/06/21 03/05/21 History Trelegy Ellipta 200 mcg-62.5 1 inh INHALATION Q24H #28 ea NS 12/28/20 03/06/21 03/05/21 Rx mcg-25 mcg powder for inhalation Allergies Allergy/AdvReac Type Severity Reaction Status Date / Time propoxyphene [From Darvon] Allergy Unknown Unknown Verified 03/03/21 10:45 Sulfa (Sulfonamide Allergy Unknown Unknown Verified 03/03/21 10:45 Antibiotics) PFSH Acute PFSH: Medical History CAD (coronary artery disease) Cardiomyopathy COPD (chronic obstructive pulmonary disease) History of heart attack Hyperlipemia Increase to high intensity statin Left bundle branch block PVD (peripheral vascular disease) Type 2 diabetes mellitus Surgical History Hx of cardiac cath 2001: Stent placement to RCA July 2012: Stent placement to LAD with noted 60% proximal LCx lesion Hx of heart artery stent Hx of hysterectomy S/P cataract surgery S/P knee surgery S/P trigger finger release Family History Denies family history of Diabetes CAD (coronary artery disease) Clotting disorder Dementia Hyperlipidemia Psychiatric illness Chronic kidney disease (CKD) Suicide Anesthesia complication Bleeding disorder Family history of premature coronary artery disease Lung disease Cancer Hypertension Stroke Social History Smoking and tobacco status: former smoker Quit status (tobacco): has quit using tobacco Year quit tobacco: 2019 [id number] Second hand smoke exposure: No Smoking risk assessment/counseling performed?: Yes Alcohol intake: never Lives independently: Yes Household members: spouse Housing: House Marital status: Current occupational status: retired Pets and animals: Yes History of recent travel: No Current gender identity: Female Vitals/I&O/Wt Last Vital Signs Temp 97.7 F 03/06/21 07:30 Pulse 56 L 03/06/21 07:30 Resp 18 03/06/21 07:30 BP 105/57 03/06/21 07:30 Pulse Ox 100 03/06/21 07:30 Physical Exam HENMT: COMMON NORMALS: normocephalic, atraumatic, hearing grossly normal bilaterally and external ears normal Neck/C-Spine: COMMON NORMALS: no lymphadenopathy and No carotid bruits Chest: COMMONS NORMALS: normal inspection of the chest and normal palpation of entire chest wall CHEST: Yes Symmetrical chest wall rise Cardio: COMMON NORMALS: S1 normal heart sound present; negative for regular rate and negative for regular rhythm (Bundle branch block by EKG) RATE: bradycardic Extremity: COMMON NORMALS: no clubbing, cyanosis or edema and no pedal edema Neuro: COMMON NORMALS: patient oriented x3, no focal motor deficits and no sensory deficits noted Data : 03/03/21 11:04 03/03/21 11:04 A&P Assessment and plan (1) Cardiomyopathy: Thin, short statured, 80-year-old female with documented cardiomyopathy with ejection fraction of 30%. She been wearing a LifeVest since her last cardiac evaluation. She has been referred to our service from our cardiology colleagues to consider AICD implantation. Details and risk of procedure were again carefully reviewed with her and her who is present on today's visit. Rationale for implantation was discussed. Potential risk of bleeding, infection requiring device or lead removal, bruising, need for long-term follow-up, pneumothorax requiring chest tube, inability to place the leads, migration of the leads, and pain after surgery were carefully discussed. She does wish to proceed. She will be at increased risk for complication related to her small stature and COPD which would increase her risk for pneumothorax. She does have a history of bruising and therefore will have an increased risk for bleeding complications. This was also discussed. We will plan to proceed with implantation and continue IV antibiotics overnight with her status being outpatient in a bed. Status: Acute Qualifiers: Cardiomyopathy type: unspecified Qualified Code(s): I42.9 - Cardiomyopathy, unspecified Attestations Medical Necessity Statement*: Medically refractory cardiomyopathy Time Spent in Patient Care: 16 - 35 minutes Coding Level of Care Code Acute [employer] for [facility] Diagnoses Cardiomyopathy I42.9 Cardiomyopathy type: unspecified
[2021-03-06] MEDS: lidocaine 1% INJ 20 mL INJECTION (08:28)
--- NOTE | 2021-03-06 09:57 | SUR.OPER ---
ATTEMPTED TO CONTACT WITH PHONE NUMBER PROVIDED. NO ANSWER AND NO VOICEMAIL AVAILABLE.
--- NOTE | 2021-03-06 11:12 | XRR_ITS ---
PROCEDURE INFORMATION: Exam: XR Chest Exam date and time: 03/06/2021 11:16 AM Age: 80 years old Clinical indication: Device placement; Cardiac defibrillator placementor adjustment; Prior surgery; Surgery date: Post-operative (0-2 days); Surgery type: Defib implantation; Additional info: Post defib implantation TECHNIQUE: Imaging protocol: XR of the chest. Views: 1 view. COMPARISON: CR XR chest 1V portable [id number] 03/06/2021 7:26 AM FINDINGS: Tubes, catheters and devices: Cardiac defibrillator is seen in the left anterior chest in good position. Lungs: Unremarkable. No consolidation. Pleural spaces: Unremarkable. No pleural effusion. No pneumothorax. Heart/Mediastinum: Unremarkable. No cardiomegaly. Bones/joints: Unremarkable. XR/XR chest 1V portable [id number] IMPRESSION: 1. No acute cardiac or pulmonary abnormality. 2. Cardiac defibrillator left anterior chest it good position
--- NOTE | 2021-03-06 11:21 | PM.OP ---
Operative Report Date of procedure: March 06, 2021 Pre-op Diagnosis: Cardiomyopathy Post-op diagnosis: same Procedure Done: AICD implantation Implants: 1. AICD generator 2. Atrial and ventricular leads Pathology: none sent Surgeon: Tejas Ba Anesthesia: MAC and Local Complications: None Findings: Fluoroscopy utilized for guidewire and lead advancement and positioning Condition: stable Disposition: PACU Brief History: Ms. Perez is a 80-year-old female referred to our service for consideration of AICD implantation due to cardiomyopathy with ejection fraction documented at 30%. There has been failure to improve with maximal medical management. She is status post stenting to the RCA in 2001 and LAD in 2011. She has a prior history for atrial fibrillation, currently in bundle branch block. Due to her substantial ejection fraction depression, AICD is recommended. Rationale, details and risk of procedure were carefully and frankly discussed. All questions were answered. Appropriate consents have been reviewed and signed. Procedure: Procedure: Ms. Perez was taken to the OR suite and placed in the supine position over a shoulder roll. She received conscious sedation with continuous anesthesia monitoring by. Her entire chest was sterilely prepped and draped. 1% lidocaine was infiltrated in the left subclavicular region. While in Trendelenburg position, utilizing modified seldinger technique, a guidewire was placed in the left subclavian vein, supple utilizing hand-held ultrasound after the vessel could not be engaged through normal nonimaged technique. This was confirmed in position by fluoroscopy. A second guidewire was also subsequently placed. Next, after infiltration with lidocaine, a subcutaneous pocket was created beginning from the exit point of the guidewire and extending laterally and inferiorly. Cautery was utilized to create the pocket just above the pectoralis musculature. Hemostasis was confirmed. An antibiotic-soaked sponge was placed in the wound. A dilator and tear-away sheath was placed over the guidewire and advanced under fluoroscopy. Guidewire and dilator were removed. Next using a combination of curved and straight stylettes, the right ventricular lead was placed in position by fluoroscopy. The distal screw was extended. Interrogation was then performed confirming appropriate parameters. The tear-away sheath was then removed and the ventricular lead was sewn to the floor of the subcutaneous pocket. Next, atrial lead was placed in a similar fashion with fluoroscopic guidance. Generator was brought into the field, and after confirmation of hemostasis in the subcutaneous pocket, the leads was connected to the generator with appropriate capture. The entire system was interrogated by fluoroscopy. Leads and generator were secured in the pocket. Sponge and needle count was correct. The wound was then closed in 2 layers of 3-0 Vicryl suture. Skin was reapproximated in a subcuticular manner with 4-0 Monocryl suture. A pressure dressing was applied. The left arm was placed in a sling. Ms. Perez had equal breath sounds bilaterally. She was then transferred to the PACU, where chest x-ray is currently pending. Family was kept apprised of progression of the case throughout its course. Following are the specifics of this system: Right ventricular lead is 55 cm and model [id number]. Serial number [id number] Atrial lead is 45 cm and [id number]. Serial number [id number] Ventricular lead had sensing of 9.2 mV with an impedance of 513 ohms. Threshold was 1.0 V Atrial lead had a sensing of 1.4 mV with an impedance of 501. Threshold was 1.25 handsomexcutive AICD generator: Model # [id number] Serial #[id number]
[2021-03-06] MEDS: sodium chlor 0.9% + KCl 20 mEq 20 MEQ/1,000 ML BAG 75 MEQ IV (11:49)
--- NOTE | 2021-03-06 15:43 | ANE.PACU2 ---
Inpatient post-anesthesia follow up: Airway intact: Yes Vital signs: Temperature 97.9 F Pulse Rate 69 Respiratory Rate 18 Blood Pressure 105/55 Pulse Oximetry 97 Oxygen Delivery Me thod [ Nasal Cannula Current Rate & Del marimar] Oxygen Delivery Me thod Nasal Cannula Oxygen Flow Rate [ Current Rate 3 & Delivery] Oxygen Flow Rate 1 Fraction of Inspir ed Oxygen Hydration adequate: Yes Nausea and vomiting: No Pain level: 2 Mental status: Baseline
[2021-03-06] MEDS: HYDROcodone-acetaminophen 5-325 mg Tablet 1 TAB PO ×2 (16:47→21:18)
[2021-03-06] MEDS: metformin 500 mg Tablet PO (17:53)
[2021-03-06] MEDS: amiodarone 200 mg Tablet PO (17:53)
[2021-03-07] VITALS (8 sets, daily range): BP systolic 92–102; BP diastolic 49–64; PULSE 59–68; RESP 16–17; TEMP 36.6–36.8; O2SAT 96–99
[2021-03-07] MEDS: sodium chlor 0.9% + KCl 20 mEq 20 MEQ/1,000 ML BAG 75 MEQ IV (01:45)
--- NOTE | 2021-03-07 06:00 | ECG_ITS ---
[facility] ED Test Date: 2021-03-07 Pat Name: Germaine Perez Department: Room: 267 Gender: Female Immunology Specialist: : 1940 Requested By: Tejas Ba Order Number: [id number] Nichols MD: Elizabeth Degroot M.D. Measurements Intervals [place] Rate: 59 P: -65 ND: 230 QRS: -16 QRSD: 193 T: 160 QT: 534 QTc: 533 Interpretive Statements ELECTRONIC ATRIAL PACEMAKER LEFT BUNDLE BRANCH BLOCK [120+ ms QRS DURATION, 80+ ms Q/S IN V1/V2, 85+ ms R IN I/aVL/V5/V6] Compared to ECG 03/06/2021 07:56:35 Sinus bradycardia no longer present Electronically Signed On 03-08-2021 18:28:46 CDT by Elizabeth Degroot M.D. [email or web address]
--- NOTE | 2021-03-07 06:00 | XRR_ITS ---
PROCEDURE INFORMATION: Exam: XR Chest Exam date and time: 03/07/2021 6:36 AM Age: 80 years old Clinical indication: Device placement; Cardiac pacemaker lead placement or adjustment; Prior surgery; Additional info: Post permanent pacemaker placement; Visualize lead tip TECHNIQUE: Imaging protocol: XR of the chest. Views: 1 view. COMPARISON: CR XR chest 1V portable [id number] 03/06/2021 11:28 AM FINDINGS: Lungs: Lungs are well aerated without a focal area of consolidation. Pleural spaces: Unremarkable. No pleural effusion. No pneumothorax. Heart/Mediastinum: The cardiac silhouette appears enlarged, some of which is magnification related to the AP projection. Vasculature: Pacemaker is present via a left subclavian approach. Bones/joints: Unremarkable. XR/XR chest 1V [id number] IMPRESSION: Lungs are well aerated without a focal area of consolidation.
--- NOTE | 2021-03-07 07:17 | PM.DCS ---
Discharge Providers Date of Admission: 03/06/21 10:48 Date of Discharge: March 07, 2021 Attending Provider at Admission: Tejas Ba MD Attending Provider at Discharge: Tejas Ba MD Primary Care Provider: Karen Meza Diagnoses at Discharge Discharge Diagnosis (1) Cardiomyopathy: Status: Acute Qualifiers: Cardiomyopathy type: unspecified Qualified Code(s): I42.9 - Cardiomyopathy, unspecified Reason for Visit Reason for Visit: defibulator placement Hospital Course Hospital Course AICDMs. Perez is a 80-year-old female with medically refractory cardiomyopathy. Implantation was requested by cardiology. She was electively admitted yesterday February, where dual-lead AICD was implanted. Status was hospital in a bed where she received continued surveillance as well as postop antibiotics. Interrogation electronically of the system this morning reveals proper functioning. Outer compressive dressing was removed. There is minimal ecchymosis. No localized swelling. She remains afebrile. She is eager for discharge to home. Tolerating diet well. Postoperative discomfort is under good control with oral analgesics. She will be discharged home today in stable condition. She may resume her Plavix and Eliquis tomorrow. All of the medications may be resumed now. Physical Exam Chest: COMMONS NORMALS: normal inspection of the chest and normal palpation of entire chest wall OTHER: Surgical site remains clean and dry. No ecchymosis. No local swelling. Resp: COMMON NORMALS: normal respiratory effort, No retractions, No use of accessory muscles and clear to auscultation bilaterally AUSCULTATION: clear to auscultation bilaterally Cardio: COMMON NORMALS: regular rate, S1 normal heart sound present and No murmurs present (Cardio) RATE: regular rate RHYTHM: abnormal rhythm (Paced rhythm by EKG) HEART SOUNDS: S1 normal heart sound present Discharge Data Data Completed and Pending: Completed Studies During Hospitalization Category Date Time Status XR chest 1V destiny ble [id number] Routine Exams 03/06/21 07:10 Completed XR chest 1V destiny ble [id number] Routine Exams 03/06/21 11:12 Completed Pending at discharge Category Date Time Status XR chest 1V [id number] Routine Exams 03/07/21 06:00 Ordered Labs from last 24 hours 03/06/21 07:41 POC Glucose 125 H Vitals: Last Vital Signs Temp 97.8 F 03/07/21 05:54 Pulse 59 L 05/11/21 06:00 Resp 17 03/07/21 05:54 BP 100/64 03/07/21 05:54 Pulse Ox 96 03/07/21 05:54 Discharge Plan Discharge Patient Disposition: Home Condition: Stable Prescriptions: New hydrocodone-acetaminophen 5-325 mg Tablet 1 tab PO Q6H PRN (Reason: Moderate Pain) Qty: 24 RF: 0 Continued Jardiance 25 mg tablet 25 mg PO DAILY RF: 0 metformin 500 mg tablet 500 mg PO BID RF: 0 nitroglycerin [Nitrostat] 0.4 mg tablet, sublingual 0.4 mg SUBLINGUAL Q5M PRN (Reason: chest pain) 30 Days Qty: 25 RF: 6 Trelegy Ellipta 200-62.5-25 mcg blister with device 1 inh inhalation Q24H Qty: 28 RF: 3 spironolactone 25 mg Tablet 12.5 mg PO DAILY RF: 0 venlafaxine 150 mg tablet extended release 24hr 150 mg PO DAILY@08 RF: 0 atorvastatin 40 mg Tablet 40 mg PO DAILY Qty: 30 RF: 0 isosorbide mononitrate 20 mg Tablet 10 mg PO DAILY Qty: 30 RF: 0 amiodarone [Pacerone] 200 mg Tablet 200 mg PO BID Qty: 60 RF: 0 clopidogrel 75 mg Tablet 75 mg PO DAILY Qty: 30 RF: 0 pantoprazole 40 mg Tablet,Delayed Release (Dr/Ec) 40 mg PO DAILY Qty: 30 RF: 0 metoprolol tartrate 25 mg Tablet 25 mg PO Q12H Qty: 60 RF: 0 furosemide [Lasix] 40 mg tablet 40 mg PO DAILY Qty: 30 RF: 0 potassium chloride 20 mEq tablet extended release 20 meq PO DAILY Qty: 30 RF: 0 Trulicity 0.75 mg/0.5 mL Pen Injector 0.75 mg SUBCUT Q7D RF: 0 Eliquis 5 mg tablet 5 mg PO BID@ RF: 0 Discharge Orders: Discharge Order (Routine); Ordered 03/07/21 Ordered By: Tejas Ba Referrals: Tejas Ba MD [Physician] - 1 week Discharge Diet: Usual diet Discharge Activity: Limit activity as instructed Patient Instructions: Opioid Safety Activity Restrictions/Additional Instructions: May remove bandage in 2 days May begin daily showers in 3 days with dressing off No swimming or tub baths x 2 weeks May cover incision daily as desired to prevent contamination or irritation from clothing No ointments on incision Report fever, drainage, redness, heat, increased pain, or swelling to clinic Do not raise left arm above eye level for 2 weeks Discharge Attestations Time Spent in Discharge Care*: less than 30 min Specific Discharge Activities: educating patient, discussing with manager of case management/social workers/dc planners, documenting/other paperwork and evaluating patient/reviewing data Status at Discharge: Cognitive status at discharge: cognitively intact, Behavioral status at discharge: cooperative, Functional status at discharge: independent ambulation Overall status at discharge: patient is back to baseline Quality Metrics Clinical Quality Measures During this hospital stay, did patient experience: None Coding Level of Care Code Acute [facility]ENNEN note Diagnoses Cardiomyopathy I42.9 Cardiomyopathy type: unspecified
[2021-03-07] MEDS: FUROsemide 40 mg Tablet PO (08:21)
[2021-03-07] MEDS: venlafaxine ER (24HR) 150 mg Capsule PO (08:22)
[2021-03-07] MEDS: metformin 500 mg Tablet PO (08:22)
[2021-03-07] MEDS: isosorbide mononitrate 20 mg Tablet 10 MG PO (08:22)
[2021-03-07] MEDS: potassium chloride ER 20 mEq Tablet PO (08:22)
[2021-03-07] MEDS: spironolactone 25 mg Tablet 12.5 MG PO (08:22)
[2021-03-07] MEDS: pantoprazole DR 40 mg Tablet PO (08:22)
[2021-03-07] MEDS: atorvastatin 40 mg Tablet PO (08:22)
[2021-03-07] MEDS: amiodarone 200 mg Tablet PO (08:23)
--- NOTE | 2021-03-07 10:36 | PC.NURSE ---
DISCHARGE INSTRUCTIONS DISCHARGE INSTRUCTIONS GIVEN PER THIS NURSE - VERBALIZES UNDERSTANDING
--- NOTE | 2021-03-07 11:48 | PC.OT ---
OT NOTE: OT EVALUATION UNABLE TO BE COMPLETED THE PATIENT WAS DISCHARGED BEFORE EVALUATION COULD BE COMPLETED.
== END 2021-03-07 12:00 | disposition home or self-care (01) ==
LOC: OR 07:07 → MEDSURG 03-07 06:44
PROVIDERS: PCP Physician Assistant; Visit Provider Thoracic Surgery (Cardiothoracic Vascular Surgery)
PROC: 0JH608Z Insertion of Defibrillator Generator into Chest Subcutaneous Tissue and Fascia, Open Approach (ICD-10-PCS; CPT 33249; principal; 2021-03-06 08:30)
DX: I42.9 Cardiomyopathy, unspecified (principal); I44.7 Left bundle-branch block, unspecified; Z79.01 Long term (current) use of anticoagulants; I10 Essential (primary) hypertension; J44.9 Chronic obstructive pulmonary disease, unspecified; Z99.81 Dependence on supplemental oxygen; E11.9 Type 2 diabetes mellitus without complications; F17.210 Nicotine dependence, cigarettes, uncomplicated; I25.10 Atherosclerotic heart disease of native coronary artery without angina pectoris; Z95.5 Presence of coronary angioplasty implant and graft
CPT/HCPCS: 33249; 36416; 71045; 76000; 80048; 81003; 82962; 85025; 85610; 93005; C1779; J0690; J2250; J2704; J3010; J3370; J7030

== ENCOUNTER 2021-03-22 11:37 | Outpatient (CLI) | payer MEDICARE, BC, SELFPAY ==
--- NOTE | 2021-03-22 11:54 | XR_ITS ---
WS: [id number] Exam: XR chest 2V* [id number] Date/Time of Exam: 03/22/2021 11:58 AM Reason For Exam: rule out pneumonia Comparison 03/07/2021. Moderate bibasal pleural effusions have developed since previous exam. Mild cardiac enlargement with pulmonary vascular congestion. A permanent cardiac pacer superimposes the left chest. No consolidatin g infiltrates. The lungs are fully inflated. The mediastinum is not widened. Regional bony elements a re intact. XR/XR chest 2V* [id number] IMPRESSION: 1. Development of bibasal pleural effusions since previous study. Pulmonary vas cular congestion suggesting congestive heart failure. Cardiac enlargement uncha nged.
== END 2021-03-22 11:38 | disposition home or self-care (01) ==
PROVIDERS: PCP Physician Assistant; Visit Provider Internal Medicine Pulmonary Disease
DX: J18.9 Pneumonia, unspecified organism (principal); J90 Pleural effusion, not elsewhere classified; I51.7 Cardiomegaly
CPT/HCPCS: 71046

== ENCOUNTER 2021-04-11 13:47 | Outpatient (RCR) | payer MEDICARE, SELFPAY | END 2021-04-26 23:59 | disposition home or self-care (01) | LOC: CR 13:47 | PROVIDERS: Family Provider Physician Assistant; PCP Physician Assistant; Visit Provider Internal Medicine Cardiovascular Disease | DX: I25.2 Old myocardial infarction (principal) | CPT/HCPCS: 93798 ==

== ENCOUNTER 2021-04-27 10:23 | Outpatient (RCR) | payer MEDICARE, SELFPAY | END 2021-05-27 23:59 | disposition home or self-care (01) | LOC: CR 10:23 | PROVIDERS: Family Provider Physician Assistant; PCP Physician Assistant; Visit Provider Internal Medicine Cardiovascular Disease | DX: I25.2 Old myocardial infarction (principal) | CPT/HCPCS: 93798 ==

== ENCOUNTER 2021-06-19 20:50 | Emergency (ER) | payer MEDICARE, SELFPAY ==
--- NOTE | 2021-06-19 20:58 | ECG_ITS ---
[facility] Test Date: 2021-06-19 Pat Name: Germaine Perez Department: Room: Gender: Female Copra Processor: : 1940 Requested By: Juany Henry Order Number: [id number] Simone MD: Gonzalez Swain M.D. Measurements Intervals [place] Rate: 63 P: 268 VA: 195 QRS: -75 QRSD: 167 T: 110 QT: 494 QTc: 506 Interpretive Statements ELECTRONIC ATRIAL PACEMAKER ELECTRONIC VENTRICULAR PACEMAKER MARKED ST DEPRESSION, CONSIDER SUBENDOCARDIAL INJURY [0.2+ mV ST DEPRESSION] Compared to ECG 03/07/2021 05:27:38 ST (T wave) deviation now present Myocardial infarct finding now present Left bundle-branch block no longer present Electronically Signed On 06-20-2021 17:12:17 CDT by Gonzalez Swain M.D. [id number]
[2021-06-19 21:03] VITALS: BP 86/43; PULSE 66; RESP 24; TEMP 36.1; BMI 17.3
[2021-06-19 21:17] LABS: Basophils % 0.4 %; Eosinophils # 0.1 10^3/uL (0.0-0.8); Eosinophils % 0.5 %; Hematocrit 36.2 % (37.0-47.0); Hemoglobin 10.4 g/dL (11.5-15.3); Lymphocytes # 1.7 10^3/uL (0.8-4.8); Lymphocytes % 16.5 %; Mean Corpuscular HGB Conc 28.7 g/dL (30.0-36.0); Mean Corpuscular Hemoglobin 26.9 pg (28.0-34.0); Mean Corpuscular Volume 93.5 fl (81-99); Mean Platelet Volume 11.6 fL (7.4-10.4); Monocytes # 0.6 10^3/uL (0.2-0.9); Monocytes % 5.6 %; Neutrophils # 7.89 10^3/uL (1.8-7.7); Neutrophils % 76.4 %; Nucleated Red Blood Cells % 0.2 %; Platelet Count 287 10^3/cmm (130-400); Red Blood Count 3.87 10^6/uL (4.1-5.3); Red Cell Distribution Width 16.7 % (12.1-15.1); White Blood Count 10.3 10^3/uL (4.0-10.0)
[2021-06-19 21:31] LABS: Troponin(5th) Baseline 54 ng/L (0-10)
--- NOTE | 2021-06-19 21:32 | W.ED.WEAKNES ---
HPI - Weakness General: Chief complaint: Weakness Stated complaint: WEAKNESS Time Seen by Provider: 06/19/21 21:00 Source: patient and EMS Mode of arrival: EMS Limitations: no limitations History of Present Illness: HPI Narrative: 80-year-old female has a history of severe COPD and is on 5 L of oxygen at baseline. She states that she has been having increasing weakness along with difficulty eating and fatigue over the last 2 days. States she is also had some slight shortness of breath as well. She denies any worsening improving factors. Associated symptoms: Denies chest pain, chills, dysuria, easy bruising, fever(s), headache(s), nausea or vomiting Review of Systems Const: Denies: fever(s), chills, body aches or change in appetite Eyes: Denies: blurry vision or eye discomfort ENMT: Denies: throat pain or dental pain Card: Denies: chest pain Resp: Reports: dyspnea GI: Denies: abdominal pain, nausea, vomiting or diarrhea : Denies: dysuria Musc: Denies: neck pain or back pain Skin/Breast: Denies: rash Neuro: Denies: headache(s) Psych: Denies: depression Papi/Lymph: Denies: easy bruising All/Imm: Denies: urticaria PFSH ED PFSH: Medical History (Updated 06/19/21 @ 21:43 by Ismael Sequeira MD) CAD (coronary artery disease) Cardiomyopathy COPD (chronic obstructive pulmonary disease) History of heart attack Hyperlipemia Increase to high intensity statin Left bundle branch block PVD (peripheral vascular disease) Type 2 diabetes mellitus Surgical History Hx of cardiac cath 2001: Stent placement to RCA July 2012: Stent placement to LAD with noted 60% proximal LCx lesion Hx of heart artery stent Hx of hysterectomy S/P cataract surgery S/P knee surgery S/P trigger finger release Family History Denies family history of Diabetes CAD (coronary artery disease) Clotting disorder Dementia Hyperlipidemia Psychiatric illness Chronic kidney disease (CKD) Suicide Anesthesia complication Bleeding disorder Family history of premature coronary artery disease Lung disease Cancer Hypertension Stroke Social History Smoking and tobacco status: former smoker Quit status (tobacco): has quit using tobacco Year quit tobacco: 2019 [id number] Second hand smoke exposure: No Smoking risk assessment/counseling performed?: Yes Alcohol intake: never Caregiver/support person: Yes Lives independently: Yes Household members: spouse Housing: House Marital status: Current occupational status: retired Pets and animals: Yes History of recent travel: No Current gender identity: Female Physical Exam Const: COMMON NORMALS: patient oriented x3 GENERAL APPEARANCE: in distress, disheveled and ill appearing HENMT: COMMON NORMALS: normocephalic and atraumatic HEAD & SCALP: normocephalic and atraumatic Eye: COMMON NORMALS: Equal, round and reactive pupils present and EOMs intact bilaterally PUPIL: Yes Equal, round and reactive pupils present Neck/C-Spine: COMMON NORMALS: full ROM and supple Chest: COMMONS NORMALS: normal inspection of the chest and normal palpation of entire chest wall Resp: COMMON NORMALS: normal respiratory effort, No retractions, No use of accessory muscles and clear to auscultation bilaterally AUSCULTATION: clear to auscultation bilaterally Cardio: COMMON NORMALS: regular rate, regular rhythm and No murmurs present (Cardio) RATE: regular rate RHYTHM: regular rhythm GI: COMMON NORMALS: Normal to inspection, nondistended, normoactive bowel sounds present, Soft to palpation, non-tender and no masses PALPATION: Yes Soft to palpation Extremity: COMMON NORMALS: normal to inspection and full ROM Neuro: COMMON NORMALS: patient oriented x3, moves all extremities and no focal motor deficits Psych: COMMON NORMALS: mental status grossly normal, Normal thought process present and cooperative THOUGHT PROCESS: Normal thought process present Skin: COMMON NORMALS: no rashes or lesions noted and no wounds GENERAL SKIN EXAM: no rashes or lesions noted Course Vital Signs: Vital signs: Vital Signs Temperature 96.9 F L 06/19/21 21:03 Pulse Rate 66 06/19/21 21:03 Respiratory Rate 24 H 06/19/21 21:03 Blood Pressure 86/43 06/19/21 21:03 MDM - Weakness MDM Narrative: Medical decision making narrative: Shortly after patient arrived she started having agonal breaths and a CODE BLUE was called. I immediately went in the room was in the room. I informed him that she needed to be intubated as she was agonal breathing and asked him what her wishes were. He states that she told him that she would not want any compressions or life-saving measures I would not want to be intubated or put on a breathing machine. I did inform him that she is actively coding without a high pulse and has very agonal respirations and he stated that he would like to respect her wishes not to do CPR or do better at this time. Patient did pass away very shortly thereafter and time of was 2129 Lab Data: Labs: Lab Results 06/19/21 06/19/21 06/19/21 Range/Units 21:07 21:07 21:07 WBC 10.3 H (4.0-10.0) 10^3/ uL RBC 3.87 L (4.1-5.3) 10^6/u L Hgb 10.4 L (11.5-15.3) g/dL Hct 36.2 L (37.0-47.0) % MCV 93.5 (81-99) fl MCH 26.9 L (28.0-34.0) pg MCHC 28.7 L (30.0-36.0) g/dL RDW 16.7 H (12.1-15.1) % Plt Count 287 (130-400) 10^3/c mm MPV 11.6 H (7.4-10.4) fL Neut % (Auto) 76.4 % Lymph % (Auto) 16.5 % [place] % (Auto) 5.6 % Eos % (Auto) 0.5 % Baso % (Auto) 0.4 % Neut # (Auto) 7.89 H (1.8-7.7) 10^3/u L Lymph # (Auto) 1.7 (0.8-4.8) 10^3/u L [place] # (Auto) 0.6 (0.2-0.9) 10^3/u L Eos # (Auto) 0.1 (0.0-0.8) 10^3/u L Baso # (Auto) 0.0 (0.0-0.1) 10^3/u L Nucleated RBC % (a uto) 0.2 % Nucleated RBCs # 0.0 /100WBC Sodium 136 (136-145) mmol/L Potassium 6.1 H (3.5-5.1) mmol/L Chloride 94 L (98-107) mmol/L Carbon Dioxide 12 L (22-29) mmol/L Anion Gap 36.1 H (5-19) BUN 32 H (8-23) mg/dL Creatinine 1.6 H (0.5-0.9) mg/dL GFR Calculation Not Reportable Glucose 196 H (65-115) mg/dL Calculated Osmolal ity 294 (285-295) mOsm/k g Calcium 8.7 (8.5-10.5) mg/dL Total Bilirubin 1.1 (0.15-1.2) mg/dL ALT 664 H (0-33) U/L Alkaline Phosphata se 177 H (35-105) IU/L Troponin T Baselin e 54 H (0-10) ng/L Total Protein 6.0 L (6.6-8.7) g/dL Albumin 3.4 L (3.5-5.2) g/dL Globulin 2.6 (1.3-4.6) g/dL Lipase 20 (13-60) U/L Discharge Plan Discharge Patient Disposition: Clinical Impression: Cardiac arrest Condition: Stable Prescriptions: No Action Jardiance 25 mg tablet 25 mg PO DAILY RF: 0 metformin 500 mg tablet 500 mg PO BID RF: 0 doxycycline hyclate 100 mg capsule 100 mg PO BID Qty: 14 RF: 0 prednisone 20 mg tablet 20 mg PO DAILY Qty: 7 RF: 0 nitroglycerin [Nitrostat] 0.4 mg tablet, sublingual 0.4 mg SUBLINGUAL Q5M PRN (Reason: chest pain) 30 Days Qty: 25 RF: 6 Trelegy Ellipta 200-62.5-25 mcg blister with device 1 inh inhalation Q24H Qty: 28 RF: 3 spironolactone 25 mg Tablet 12.5 mg PO DAILY RF: 0 venlafaxine 150 mg tablet extended release 24hr 150 mg PO DAILY@08 RF: 0 atorvastatin 40 mg Tablet 40 mg PO DAILY Qty: 30 RF: 0 isosorbide mononitrate 20 mg Tablet 10 mg PO DAILY Qty: 30 RF: 0 amiodarone [Pacerone] 200 mg Tablet 200 mg PO BID Qty: 60 RF: 0 clopidogrel 75 mg Tablet 75 mg PO DAILY Qty: 30 RF: 0 pantoprazole 40 mg Tablet,Delayed Release (Dr/Ec) 40 mg PO DAILY Qty: 30 RF: 0 metoprolol tartrate 25 mg Tablet 25 mg PO Q12H Qty: 60 RF: 0 furosemide [Lasix] 40 mg tablet 40 mg PO DAILY Qty: 30 RF: 0 potassium chloride 20 mEq tablet extended release 20 meq PO DAILY Qty: 30 RF: 0 Trulicity 0.75 mg/0.5 mL Pen Injector 0.75 mg SUBCUT Q7D RF: 0 Eliquis 5 mg tablet 5 mg PO BID@09,21 RF: 0 Referrals: Karen Meza PA [Primary Care Provider] - Coding Level of Care Code ED Senior Formulation Scientist for Chg Fwd Exam Comprehensive
--- NOTE | 2021-06-19 21:36 | PC.NURSE ---
at bedside performing EKG. pt began looked over at coworker and then head fell to the left and pt had agonal breathing. physician immediately notifed and at bedside. pt began having apnea and family member at bedside advised that this patient wishes to be a DNR. airway held open with jaw thrust to aid in agonal respirations that patient was having and then patient became apneic again. physician placed US on pt left chest and reported no heart activity. time of called and family member at bedside.
[2021-06-19 21:40] LABS: Alanine Aminotransferase 664 U/L (0-33); Albumin Level 3.4 g/dL (3.5-5.2); Alkaline Phosphatase 177 IU/L (35-105); Anion Gap 36.1 (5-19); Blood Urea Nitrogen 32 mg/dL (8-23); Calcium 8.7 mg/dL (8.5-10.5); Carbon Dioxide 12 mmol/L (22-29); Chloride 94 mmol/L (98-107); Globulin 2.6 g/dL (1.3-4.6); Glucose 196 mg/dL (65-115); Lipase 20 U/L (13-60); Osmolality Calculated 294 mOsm/kg (285-295); Potassium 6.1 mmol/L (3.5-5.1); Sodium 136 mmol/L (136-145); Total Bilirubin 1.1 mg/dL (0.15-1.2)
--- NOTE | 2021-06-19 21:45 | PC.NURSE ---
Pt requested rings. Rings removed from pt and given to at bedside.
--- NOTE | 2021-06-19 21:46 | PC.NURSE ---
MTS notified of pt at 2125. Pt potential candidate for organ donation. [employer] Oneil Montez released body.
[2021-06-19 22:01] LABS: Aspartate Amino Transferase 1186 U/L (0-32)
--- NOTE | 2021-06-19 22:01 | PC.NURSE ---
[facility] called back, states pt is not a candidate for donation and body can be released.
[2021-06-19 22:19] LABS: NT Pro B Type Natriuretic Pept > 70000 pg/mL (0-450)
== END 2021-06-19 22:17 | disposition expired ==
PROVIDERS: Emergency Medicine; Emergency Provider Emergency Medicine; Family Provider Physician Assistant; PCP Physician Assistant
DX: I46.9 Cardiac arrest, cause unspecified (principal); I25.10 Atherosclerotic heart disease of native coronary artery without angina pectoris; J44.9 Chronic obstructive pulmonary disease, unspecified; E78.5 Hyperlipidemia, unspecified; E11.51 Type 2 diabetes mellitus with diabetic peripheral angiopathy without gangrene; Z79.84 Long term (current) use of oral hypoglycemic drugs; Z79.899 Other long term (current) drug therapy; Z79.01 Long term (current) use of anticoagulants; Z87.891 Personal history of nicotine dependence
CPT/HCPCS: 80053; 83690; 83880; 84484; 85025; 93005; 99283